=== PATIENT | female | born 1975 | race African-American/Black ===

== ENCOUNTER 2023-05-04 08:57 | Outpatient (AMB) | payer OTHER, SELFPAY ==
[2023-05-04 09:01] VITALS: BP 136/84; PULSE 84; RESP 13; TEMP 36.6; O2SAT 99; BMI 38.3
--- NOTE | 2023-05-04 09:01 | A.OFFPC_ITS ---
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 Accompanied by: Daughter Allergies Seasonal Allergies Allergy (Intermediate, Verified 05/04/23 10:07) Runny Nose Medication List - Last Reconciled 05/04/23 by Rani Rosario CNP amlodipine 10 mg PO DAILY lisinopril 20 mg PO DAILY metoprolol succinate ER 25 mg PO DAILY Tobacco use date assessed: 05/04/23 Dental Screening Dental Screen Date: 05/04/23 Did you have a dental visit in the last 12 months?: Yes Did you have a dental problem in the last 6 months where you did not have access to dental care?: No Was dental information given to patient?: Patient has dentist HPI HPI Comments History of Present Illness Details 48-year-old female, accompanied by her machelle bowman, presents to establish care. She notes that she relocated from [place] to [facility] 2 years ago. She has never established with a PCP. She has been accessing urgent care clinic for medical care. Her last routine blood work was in 2020. She has past medical history significant for hypertension and cerebral aneurysm with clamping in 2007. She reports history of palpitations that was worked-up without significant findings. She is on amlodipine, lisinopril, and metoprolol. She admits to taking her medications daily as prescribed. She notes that she has been monitoring her blood pressure at home and average in the 120s-140s over 80s/90s. She reports pressure in her right ear, postal nasal drip, and nonproductive cough for the past 2 weeks. She has been using Flonase. She has not been taking any medications for her symptoms. She denies headache, fever, chills, body aches, fatigue, weakness. [facility] Medical History (Updated 05/04/23 @ 10:38 by Rani Rosario CNP) Back disorder High blood pressure Sinusitis History of nephrolithotomy with removal of calculi Brain aneurysm Surgical History (Updated 05/04/23 @ 09:32 by Shanell Vasquez MA) S/P clamping of cerebral aneurysm Family History (Updated 05/04/23 @ 09:37 by Shanell Vasquez MA) Mother High blood pressure Diabetes Family/Other High blood pressure Social History Housing: House Patient Tobacco Use Status: Never used Tobacco e-Cigarette/Vaping Use: Never Used service: No Current occupational status: unemployed Cognitive needs: No Hearing needs: No Vision needs: Yes Questionnaire PHQ-9 Over the last 2 weeks, how often have you been bothered by any of the following problems? 1. Little interest or pleasure in doing things: not at all 2. Feeling down, depressed, or hopeless: not at all 3. Trouble falling or staying asleep, or sleeping too much: several days 4. Feeling tired or having little energy: not at all 5. Poor appetite or overeating: several days 6. Feeling bad about yourself - or that you are a failure or have let yourself or your family down: not at all 7. Trouble concentrating on things, such as reading the newspaper or watching television: not at all 8. Moving or speaking so slowly that other people could have noticed. Or the opposite - being so fidgety or restless that you have been moving around a lot more than usual: not at all 9. Thoughts that you would be better off or of hurting yourself in some way: not at all Total score: 2 Depression Screening Interpretation: Negative Depression Screening Done: Yes Source: Developed by Drs. José Luis Flowers, Karo Najera, Mohsen Herman and colleagues, with an educational minda from [employer]. Thrive Questionnaire Date Thrive assessed: 05/04/23 I am a: Patient What is your living situation today?: I have a steady place to live Within the past 12 months, did the food you bought not last and you didn't have the money to get more?: Never true Within the past 12 months, did you worry whether your food would run out before you got money to buy more?: Never true Do you have trouble paying for medicines?: No Do you have trouble getting transportation to medical appointments?: No Do you have trouble paying your heating and electricity bill?: No Do you have trouble taking care of your child, family member or friend?: No Do you have trouble with day-to-day activities such as bathing, preparing meals, shopping, managing finances, etc.?: No Are you currently unemployed and looking for a job?: No Are you interested in more education?: Yes Please select the resources that you would like help with: Education Currently or been in a relationship where the following occur: no concerns reported AUDIT C Alcohol Use Questionnaire (AUDIT-C) 1. How often do you have a drink containing alcohol?: Never 3. How often do you have six or more drinks on one occasion?: Never Total Score: 0 SAIGE-7 AMB Questionnaire SAIGE-7 Date SAIGE - 7 assessed: 05/04/23 Feeling nervous, anxious, or on edge: 0 = Not at all Not being able to stop or control worryin = Not at all Worrying too much about different things: 0 = Not at all Trouble relaxin = Not at all Being so restless that it is hard to sit still: 0 = Not at all Becoming easily annoyed or irritable: 0 = Not at all Feeling afraid as if something awful might happen: 0 = Not at all Total SAIGE-7 score (0-4 normal; 5-9 mild; 10-14 moderate; 15-21 severe): 0 Source: Developed by Drs. José Luis Flowers, Karo Najera, Mohsen Herman and colleagues, with an educational minda from [employer]. Review of Systems Const Details: Const Denies chills, Denies fatigue, Denies fever(s), Denies headache(s) and Denies weakness ENT Reports as per HPI Card Denies chest pain, Denies lightheadedness, Denies dyspnea and Denies other (Palpitations) Resp Reports cough, Denies dyspnea, Denies wheezing and Denies other ( shortness of breath) GI Denies abdominal pain, Denies melena, Denies hematochezia, Denies change in bowel habits, Denies dyspepsia and Denies nausea Denies hematuria and Denies dysuria Musc Denies abnormal gait, Denies myalgias, Denies arthralgias, Denies numbness and Denies tingling Skin/Breast Denies rash, Denies unusual bruising and Denies wounds Neuro Denies abnormal gait, Denies dizziness, Denies headache(s), Denies memory loss, Denies numbness, Denies Sensory deficit (Neuro), Denies tingling and Denies weakness Psych Denies anxiety, Denies depression, Denies memory loss Endo Denies cold intolerance, Denies fatigue, Denies heat intolerance, Denies polydipsia and Denies polyuria Aller/Immun Denies wheezing Physical exam (Primary Care) Vital Signs: Last Vital Signs Temp 98 F 05/04/23 09:01 Pulse 84 05/04/23 10:19 Resp 13 05/04/23 09:01 BP 144/90 H 05/04/23 10:19 Pulse Ox 99 05/04/23 09:01 Oxygen Delivery Method Room Air 05/04/23 09:01 BMI result Body Mass Index 38.3 Tobacco/Smoking Status: Tobacco use Status Tobacco use date assessed 05/04/23 05/04/23 09:14 Patient Tobacco Use Status Never used Tobacco 05/04/23 09:14 e-Cigarette/Vaping Use Never Used 05/04/23 09:14 PHQ-9: PHQ-9 Score PHQ-9: Total score 2 05/04/23 10:14 Depression Screening Interpretation: Negative Thrive Assessment: Date of Thrive Assessment Date Thrive assessed 05/04/23 05/04/23 09:40 Currently or been in a relationship where the following occur: no concerns reported Const Other: General: no acute distress and well developed Nutritional Appearance: well nourished Orientation/consciousness: patient oriented x3 HENMT Head is normocephalic Bilateral ear canal and TM are normal Nasal turbinates with mild erythema Oropharynx is pink and moist Sinuses are nontender with palpation No auricular or cervical lymphadenopathy Eyes General: appearance normal, both eyes and all related structures Pupils: Equal, round and reactive pupils present EOM: EOMs intact bilaterally Resp Effort & Inspection: normal respiratory effort Auscultation: clear to auscultation bilaterally Cardio Rate: regular rate Rhythm: regular rhythm Heart sounds: S1 normal heart sound present, S2 normal heart sound present, no gallops, no murmurs and no rubs GI Palpation (GI): No Abdominal aortic bruit present, Soft to palpation, nontender, No hepatosplenomegaly present and No Rebound tenderness present Auscultation: normal bowel sounds General: Yes no CVA tenderness Back/Spine/Pelvis Back: no CVA tenderness Cervical Spine: cervical ROM normal and No Cervical spine tenderness Thoracic/Lumbar Spine: thoraco-lumbar ROM normal, No pain with thoraco-lumbar ROM, No thoracic spinal tenderness and No lumbar spinal tenderness Extrem General: Yes normal to inspection, No edema and No calf tenderness Skin General: warm and dry. Normal skin color. Normal skin turgor Lesions: no lesions Rashes: no rashes Trauma: no lacerations or abrasions Wounds: no wounds Nails: normal Neuro General: patient oriented x3, gait normal and no focal neuro deficit Cranial nerves: Yes Equal, round and reactive pupils present Cognition (Neuro): normal cognition Gait exam (Neuro): Normal gait present Sensory Exam: No Sensory deficit (Neuro) Psych Appearance: grossly normal Affect: normal affect Attitude: cooperative Thought process: Normal thought process present Assessment and Plan Assessment & Plan (1) High blood pressure: Code(s): I10 - Essential (primary) hypertension Qualifiers: Hypertension type: primary hypertension Qualified Code(s): I10 - Essential (primary) hypertension Plan: Resting blood pressure is 144/90, above goal of less than 140/90 Metoprolol ER increased to 25 mg daily. Take as prescribed Continue to take amlodipine and lisinopril as prescribed Low-sodium diet encouraged Continue to monitor blood pressure daily Follow-up in 2 weeks or return sooner with symptoms or concerns Verbalized understanding and agreed with treatment plan. (2) Rhinitis: Code(s): J31.0 - Chronic rhinitis Qualifiers: Rhinitis type: allergic Allergic rhinitis trigger: unspecified Allergic rhinitis seasonality: unspecified Qualified Code(s): J30.9 - Allergic rhinitis, unspecified Plan: Reports pressure in her right ear, postal nasal drip, and nonproductive cough for the past 2 weeks. Nasal turbinates with mild erythema. Sinuses are nontender to palpation Zyrtec and benzonatate ordered. Take as prescribed Adequate rest and hydration encouraged May take Tylenol ibuprofen for pain, fever, or discomfort Return with worsening or new symptoms Verbalized understanding and agreed with treatment plan. (3) Laboratory tests ordered as part of a complete physical exam (CPE): Code(s): Z00.00 - Encounter for general adult medical examination without abnormal findings Plan: Fasting labs ordered as part of a complete physical exam. Advised to fast for at least 10 hours before getting labs drawn. May drink water Verbalized understanding and agreed with treatment plan. Orders: Orders Comprehensive Okay. Panel Fast Today Z00.00 - Encounter for general adult medical examination without abnormal findings TSH reflex Free T4 Today Z00.00 - Encounter for general adult medical examination without abnormal findings Complete Blood Count Auto Diff Today Z00.00 - Encounter for general adult medical examination without abnormal findings Lipid Panel Today Z00.00 - Encounter for general adult medical examination without abnormal findings UA CC w/rflx Micro + Cult Today Z00.00 - Encounter for general adult medical e xamination without abnormal findings Medications: New cetirizine (Zyrtec) 10 mg PO DAILY 30 tabs 1RF 30 days metoprolol succinate ER 50 mg PO DAILY 30 days 30 tabs 3RF benzonatate 200 mg PO BID PRN 20 caps 0RF cough Coding Level of Care Code New Pt Level 4 (35764) Diagnoses Primary hypertension I10 Hypertension type: primary hypertension Allergic rhinitis, unspecified seasonality, unspecified trigger J30.9 Rhinitis type: allergic Allergic rhinitis trigger: unspecified Allergic rhinitis seasonality: unspecified Laboratory tests ordered as part of a complete physical exam (CPE) Z00.00
[2023-05-04 10:19] VITALS: BP 144/90; PULSE 84
== END 2023-05-04 10:33 | disposition home or self-care (01) ==
PROVIDERS: PCP Nurse Practitioner Family; Visit Provider Nurse Practitioner Family
DX: I10 Essential (primary) hypertension (principal); J30.9 Allergic rhinitis, unspecified
CPT/HCPCS: 99204

== ENCOUNTER 2023-05-04 10:40 | Outpatient (REF) | payer OTHER, SELFPAY ==
[2023-05-04 14:55] LABS: Appearance Urine Turbid; Color Urine Yellow; Glucose Urine UA Negative (Negative); Leukocyte Esterase Urine Negative (Negative); Nitrite Urine Negative (Negative); PH 7.5 (5.0-9.0); Specific Gravity - Urine 1.015 (1.005-1.025); UMIC TRIGGER UACC YES; Urine Blood Negative (Negative); Urine Ketones Negative (Negative); Urine Protein 100 (2+) mg/dL (Neg-Trace)
[2023-05-04 14:56] LABS: MANUAL DIFF FLAG NO
[2023-05-04 14:57] LABS: Bacteria Urine 1+ (None Seen); Hyaline Casts Urine 0-2 /LPF (0-2); RBC Urine 0-2 /HPF (0-2); UACC Culture Trigger YES
[2023-05-04 15:05] LABS: Basophils Absolute Auto 0.1 X10*3/uL (0.0-0.2); Basophils Percent Auto 1.1 % (0-2); Eosinophils Absolute Auto 0.2 X10*3/uL (0.0-0.4); Eosinophils Percent Auto 2.7 % (0-4); Hemoglobin 12.4 g/dl (12.0-16.0); Imm Gran Abs Auto 0.02 X10*3/uL (0.00-0.03); Imm Gran Pct Auto 0.3 % (0.0-0.4); Lymphocytes Absolute Auto 2.4 X10*3/uL (1.2-4.9); Lymphocytes Percent Auto 31.6 % (20-40); Mean Corpuscular HGB Conc 31.8 g/dl (31.0-35.0); Mean Corpuscular Hemoglobin 28.2 pg (27.0-33.0); Mean Corpuscular Volume 88.8 fL (80.0-98.0); Mean Platelet Volume 10.1 fL (9.4-12.3); Monocytes Absolute Auto 0.8 X10*3/uL (0.1-1.2); Monocytes Percent Auto 10.3 % (2-11); Neutrophils Absolute Auto 4.1 x10*3/uL (2.0-8.3); Platelet Count 298 X10*3/uL (160-400); Red Blood Count 4.39 X10*6/uL (4.20-5.50); Red Cell Distribution Width 14.1 % (11.0-16.0); White Blood Count 7.5 X10*3/uL (4.8-10.8)
[2023-05-04 15:27] LABS: Alanine Aminotransferase 23 U/L (0-31); Albumin Level 4.3 g/dL (3.5-5.0); Alkaline Phosphatase 73 U/L (39-117); Anion Gap 16 (12-20); Aspartate Amino Transferase 23 U/L (5-31); Bilirubin Total 0.3 mg/dL (0.0-1.0); Blood Urea Nitrogen 13 mg/dL (9-16); Calcium 9.4 mg/dL (8.4-10.2); Carbon Dioxide 24 mmol/L (22-29); Chloride 105 mmol/L (96-108); Cholesterol 159 mg/dL (<200); Estimated Glomerular Filt Rate > 60; Glucose Fasting 127 mg/dL (60-99); HDL Cholesterol 50 mg/dL (>40); LDL Cholesterol Calculated 93 mg/dL (<100); Potassium 3.7 mmol/L (3.3-5.1); Sodium 141 mmol/L (135-145); Total Protein 7.9 g/dL (6.5-8.0); Triglycerides 83 mg/dL (<150)
[2023-05-04 15:41] LABS: TSH reflex Free T4 1.22 uIU/mL (0.32-4.0)
== END 2023-05-04 10:41 | disposition home or self-care (01) ==
LOC: HO.WFDLDS 10:40
PROVIDERS: Visit Provider Nurse Practitioner Family
DX: Z00.00 Encounter for general adult medical examination without abnormal findings (principal)
CPT/HCPCS: 36415; 80053; 80061; 81001; 84443; 85025; 87086

== ENCOUNTER 2023-05-19 16:01 | Outpatient (AMB) | payer OTHER, SELFPAY ==
--- NOTE | 2023-05-19 16:09 | A.OFFPC_ITS ---
Vital Signs 05/19/23 16:10 Height 5 ft 3 in Weight 214 lb BMI 37.9 BP 130/88 Blood Pressure Location Lt brachial Position Sitting Respiration 13 Pulse 84 Pulse Source Pulse Oximeter Temp 98.7 F Temp Source Oral Pulse Oximetry (%) 98 Oxygen Delivery Method Room Air Intake Visit Reasons: f/u HTN Intake Note: Patient is here for a blood pressure follow up. Patient reports she notices at the doctors office her blood pressure is elevated. Patient takes her blood pressure at home and notices her blood pressure is often higher when not taking her medication. 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 She established care 2 weeks ago. Her blood pressure was elevated, 144/90. Metoprolol ER was increased to 50 mg daily. She was advised to take metoprolol, lisinopril, and amlodipine as prescribed. She admits to taking her medications as prescribed. She denies acute symptoms at this time. [facility] Medical History (Updated 05/19/23 @ 16:35 by Rani Rosario CNP) Back disorder High blood pressure Sinusitis History of nephrolithotomy with removal of calculi Brain aneurysm Surgical History (Updated 05/04/23 @ 09:32 by Shanell Vasquez MA) S/P clamping of cerebral aneurysm Family History (Updated 05/04/23 @ 09:37 by Shanell Vasquez MA) Mother High blood pressure Diabetes Family/Other High blood pressure Social History Housing: House Patient Tobacco Use Status: Never used Tobacco e-Cigarette/Vaping Use: Never Used service: No Current occupational status: unemployed Cognitive needs: No Hearing needs: No Vision needs: Yes Questionnaire Thrive Questionnaire Date Thrive assessed: 05/04/23 SAIGE-7 AMB Questionnaire SAIGE-7 Date SAIGE - 7 assessed: 05/04/23 Source: Developed by Drs. José Luis Flowers, Karo Najera, Mohsen Herman and colleagues, with an educational minda from [employer]. Review of Systems Const Details: Const Denies chills, Denies fatigue, Denies fever(s), Denies headache(s) and Denies weakness ENT Denies dizziness and Denies headache(s) Card Denies chest pain, Denies lightheadedness, Denies dyspnea and Denies other (Palpitations) Resp Denies cough, Denies dyspnea, Denies wheezing and Denies other ( shortness of breath) GI Denies abdominal pain, Denies melena, Denies hematochezia, Denies change in bowel habits, Denies dyspepsia and Denies nausea Denies hematuria and Denies dysuria Musc Denies abnormal gait, Denies myalgias, Denies arthralgias, Denies numbness and Denies tingling Skin/Breast Denies rash, Denies unusual bruising and Denies wounds Neuro Denies abnormal gait, Denies dizziness, Denies headache(s), Denies memory loss, Denies numbness, Denies Sensory deficit (Neuro), Denies tingling and Denies weakness Psych Denies anxiety, Denies depression, Denies memory loss Endo Denies cold intolerance, Denies fatigue, Denies heat intolerance, Denies polydipsia and Denies polyuria Aller/Immun Denies wheezing Physical exam (Primary Care) Vital Signs: Last Vital Signs Temp 98.7 F 05/19/23 16:10 Pulse 84 05/19/23 16:10 Resp 13 05/19/23 16:10 BP 130/88 05/19/23 16:10 Pulse Ox 98 05/19/23 16:10 Oxygen Delivery Method Room Air 05/19/23 16:10 BMI result Body Mass Index 37.9 Tobacco/Smoking Status: Tobacco use Status Tobacco use date assessed 05/04/23 05/19/23 16:18 Patient Tobacco Use Status Never used Tobacco 05/19/23 16:18 e-Cigarette/Vaping Use Never Used 05/19/23 16:18 Thrive Assessment: Date of Thrive Assessment Date Thrive assessed 05/04/23 05/19/23 16:18 Const Other: General: no acute distress and well developed Nutritional Appearance: well nourished Orientation/consciousness: patient oriented x3 HENMT Head: Yes normocephalic and Yes atraumatic Eyes General: appearance normal, both eyes and all related structures Pupils: Equal, round and reactive pupils present EOM: EOMs intact bilaterally Resp Effort & Inspection: normal respiratory effort Auscultation: clear to auscultation bilaterally Cardio Rate: regular rate Rhythm: regular rhythm Heart sounds: S1 normal heart sound present, S2 normal heart sound present, no gallops, no murmurs and no rubs GI Palpation (GI): No Abdominal aortic bruit present, Soft to palpation, nontender, No hepatosplenomegaly present and No Rebound tenderness present Auscultation: normal bowel sounds General: Yes no CVA tenderness Back/Spine/Pelvis Back: no CVA tenderness Cervical Spine: cervical ROM normal and No Cervical spine tenderness Thoracic/Lumbar Spine: thoraco-lumbar ROM normal, No pain with thoraco-lumbar ROM, No thoracic spinal tenderness and No lumbar spinal tenderness Extrem General: Yes normal to inspection, No edema and No calf tenderness Skin General: warm and dry. Normal skin color. Normal skin turgor Neuro General: patient oriented x3, gait normal and no focal neuro deficit Cranial nerves: Yes Equal, round and reactive pupils present Cognition (Neuro): normal cognition Gait exam (Neuro): Normal gait present Sensory Exam: No Sensory deficit (Neuro) Psych Appearance: grossly normal Affect: normal affect Attitude: cooperative Thought process: Normal thought process present Assessment and Plan Assessment & Plan (1) High blood pressure: Code(s): I10 - Essential (primary) hypertension Qualifiers: Hypertension type: primary hypertension Qualified Code(s): I10 - E ssential (primary) hypertension Plan: Blood pressure is 130/88, within goal of less than 140/90 Continue with current treatment regimen Low-sodium diet encouraged Follow-up in 1 month for an extended physical exam Return sooner with symptoms or concerns Verbalized understanding and agreed with treatment plan. (2) Elevated fasting glucose: Code(s): R73.01 - Impaired fasting glucose Plan: Recent lab results reviewed with the patient. Unremarkable urinalysis and blood work except for elevated fasting glucose of 127 Will repeat fasting glucose. Advised to fast for 10-12 hours and get blood work done before next visit Follow-up in 1 month Verbalized understanding and agreed with treatment plan. Coding Level of Care Code Est Pt Level 3 (42956) Diagnoses Primary hypertension I10 Hypertension type: primary hypertension Elevated fasting glucose R73.01
[2023-05-19 16:10] VITALS: BP 130/88; PULSE 84; RESP 13; TEMP 37.1; O2SAT 98; BMI 37.9
== END 2023-05-19 16:45 | disposition home or self-care (01) ==
PROVIDERS: PCP Nurse Practitioner Family; Visit Provider Nurse Practitioner Family
DX: I10 Essential (primary) hypertension (principal); R73.01 Impaired fasting glucose
CPT/HCPCS: 99213

== ENCOUNTER 2023-09-06 08:06 | Outpatient (REF) | payer OTHER, SELFPAY ==
[2023-09-06 14:16] LABS: MANUAL DIFF FLAG NO
[2023-09-06 14:22] LABS: Basophils Absolute Auto 0.1 X10*3/uL (0.0-0.2); Basophils Percent Auto 1.4 % (0-2); Eosinophils Absolute Auto 0.3 X10*3/uL (0.0-0.4); Eosinophils Percent Auto 4.4 % (0-4); Hematocrit 39.3 % (37.0-47.0); Hemoglobin 12.5 g/dl (12.0-16.0); Imm Gran Abs Auto 0.01 X10*3/uL (0.00-0.03); Imm Gran Pct Auto 0.2 % (0.0-0.4); Lymphocytes Absolute Auto 2.8 X10*3/uL (1.2-4.9); Lymphocytes Percent Auto 42.2 % (20-40); Mean Corpuscular HGB Conc 31.8 g/dl (31.0-35.0); Mean Corpuscular Hemoglobin 28.6 pg (27.0-33.0); Mean Corpuscular Volume 89.9 fL (80.0-98.0); Mean Platelet Volume 10.4 fL (9.4-12.3); Monocytes Absolute Auto 0.8 X10*3/uL (0.1-1.2); Monocytes Percent Auto 11.5 % (2-11); Neutrophils Absolute Auto 2.7 x10*3/uL (2.0-8.3); Neutrophils Percent Auto 40.3 % (45-73); Platelet Count 291 X10*3/uL (160-400); Red Blood Count 4.37 X10*6/uL (4.20-5.50); Red Cell Distribution Width 13.2 % (11.0-16.0); White Blood Count 6.6 X10*3/uL (4.8-10.8)
[2023-09-06 15:03] LABS: Alanine Aminotransferase 20 U/L (0-31); Albumin Level 4.3 g/dL (3.5-5.0); Alkaline Phosphatase 68 U/L (39-117); Anion Gap 12 (12-20); Aspartate Amino Transferase 20 U/L (5-31); Bilirubin Total 0.3 mg/dL (0.0-1.0); Blood Urea Nitrogen 16 mg/dL (9-16); Calcium 9.6 mg/dL (8.4-10.2); Carbon Dioxide 28 mmol/L (22-29); Chloride 104 mmol/L (96-108); Cholesterol 174 mg/dL (<200); Estimated Glomerular Filt Rate > 60; Glucose Random 115 mg/dL (60-115); HDL Cholesterol 55 mg/dL (>40); LDL Cholesterol Calculated 91 mg/dL (<100); Potassium 3.3 mmol/L (3.3-5.1); Sodium 141 mmol/L (135-145); Total Protein 7.7 g/dL (6.5-8.0); Triglycerides 140 mg/dL (<150)
[2023-09-06 15:26] LABS: TSH reflex Free T4 2.08 uIU/mL (0.32-4.0)
[2023-09-07 08:41] LABS: HIV AB/AG Nonreactive (Nonreactive); HIV Num 1 0.06 S/CO (0.00-0.99); ~HepC Num1 0.24 S/CO (0.00-0.79); ~Hepatitis C Antibody Nonreactive (Nonreactive)
== END 2023-09-06 08:07 | disposition home or self-care (01) ==
LOC: HO.CHCLDS 08:06
PROVIDERS: Visit Provider Family Medicine
DX: R00.2 Palpitations (principal); E66.01 Morbid (severe) obesity due to excess calories; Z68.36 Body mass index [BMI] 36.0-36.9, adult
CPT/HCPCS: 36415; 80053; 80061; 84443; 85025; 86803; 87389

== ENCOUNTER 2023-09-09 18:49 | Outpatient (REF) | payer OTHER, SELFPAY ==
[2023-09-15 11:39] LABS: HPV mRNA E6/E7 rflx Not Detected (Not Detected)
== END 2023-09-09 18:50 | disposition home or self-care (01) ==
LOC: HO.CHCLNP 18:49
PROVIDERS: Visit Provider Family Medicine
DX: Z12.4 Encounter for screening for malignant neoplasm of cervix (principal); Z11.51 Encounter for screening for human papillomavirus (HPV)
CPT/HCPCS: 87624; 88142

== ENCOUNTER → 2023-09-13 14:30 | Outpatient (BNV) | payer OTHER, SELFPAY | PROVIDERS: PCP Family Medicine; Visit Provider Radiology Diagnostic Radiology | DX: Z12.31 Encounter for screening mammogram for malignant neoplasm of breast (principal) | CPT/HCPCS: 77063; 77067 ==

== ENCOUNTER 2023-09-13 14:32 | Outpatient (REF) | payer OTHER, SELFPAY ==
--- NOTE | ~2023-09-13 | MM_ITS ---
EXAMINATION: MM SCREENING DIGITAL BREAST TOMOSYNTHESIS, BILATERAL CLINICAL INFORMATION: Screening. Asymptomatic. COMPARISON: Mammography: None. Baseline exam. TECHNIQUE: Digital breast tomosynthesis is performed in both the craniocaudal and mediolateral oblique views along with computer-aided detection (CAD). Synthesized 2D images are generated from the tomosynthesis. FINDINGS: There are scattered areas of fibroglandular density (ACR BI-RADS breast composition Category b). There are no suspicious masses, suspicious grouped calcifications, or areas of architectural distortion in either breast. The parenchymal pattern is stable from prior exams. MM/MM tomosynthesis screening BI IMPRESSION: No mammographic evidence of malignancy. ASSESSMENT: BI-RADS BI-RADS 1 - Negative RECOMMENDATION: Routine annual mammography screening. 1 year F/U This examination should not preclude the clinical evaluation of a suspicious palpable abnormality. This patient's information was entered into a reminder system with a target due date for their next mammogram.
--- NOTE | 2023-09-13 15:18 | HM_ITS ---
Conclusion: 1. Patient was monitored for total period of 1 day 2. Baseline was normal sinus rhythm with average heart of 82 beats per minute 3. No significant arrhythmias or pauses noted 4. Patient marked 2 events in the diary but there was no associated marking with the Holter monitor as it was outside the time. . MTDD
== END 2023-09-13 14:33 | disposition home or self-care (01) ==
LOC: HO.MAMMO 14:32
PROVIDERS: PCP Family Medicine; Visit Provider Family Medicine
DX: Z12.31 Encounter for screening mammogram for malignant neoplasm of breast (principal); R00.2 Palpitations
CPT/HCPCS: 77063; 77067; 93225

== ENCOUNTER → 2023-09-13 15:18 | Outpatient (BNV) | payer OTHER, SELFPAY | PROVIDERS: PCP Family Medicine; Visit Provider Internal Medicine Cardiovascular Disease | DX: R00.2 Palpitations (principal) | CPT/HCPCS: 93227 ==

== ENCOUNTER 2023-11-15 15:09 | Outpatient (AMB) | payer OTHER, SELFPAY ==
[2023-11-15 15:30] VITALS: BMI 37.6
--- NOTE | 2023-11-15 15:30 | A.OFFVIS_ITS ---
Vital Signs 11/15/23 15:30 Height 5 ft 3 in Weight 212 lb BMI 37.6 Intake Visit Reasons: New Pt - left MF trigger finger Intake Note: Radha is a 48 year old right hand dominant female who presents today as a new patient for a evaluation of her left MF trigger finger. Patient reports that her middle finger started to lock in place about a year . She states that it causes her a lot of pain. Patient finds when she is using her trigger finger it locks making it difficult to straighten it out. About 2 months ago she was given a steroid injection at her PCP's office that helped her pain. User Experience Researcher Required: No Accompanied by: Self / Same As Patient Allergies Seasonal Allergies Allergy (Intermediate, Verified 11/15/23 15:32) Runny Nose HPI HPI New Pt - left MF trigger finger: Details: 48-year-old right hand dominant female who presents in the office today, as a new patient, for an evaluation of left hand pain. Patient was referred to the office by her PCP with a complaint of a left middle finger trigger finger. While in the office today the patient reports her middle finger started locking about a year ago, in 2022. She states this causes her a lot of pain. She claims with the use of the left middle finger locks making it difficult to straighten out. She confirms a steroid trigger point injection about 2 months ago, 09/2023, at her PCP office. She states this did help with pain. [facility] Medical History (Updated 11/15/23 @ 16:00 by Loretta Carias) Back disorder High blood pressure Sinusitis History of nephrolithotomy with removal of calculi Brain aneurysm Surgical History (Updated 05/04/23 @ 09:32 by DEVENDRA Persaud) S/P clamping of cerebral aneurysm Family History (Updated 05/04/23 @ 09:37 by DEVENDRA Persaud) Mother High blood pressure Diabetes Family/Other High blood pressure Social History Housing: House Patient Tobacco Use Status: Never used Tobacco e-Cigarette/Vaping Use: Never Used service: No Current occupational status: unemployed Cognitive needs: No Hearing needs: No Vision needs: Yes Review of Systems Const All systems reviewed & are unremarkable except as noted in HPI and below Physical Exam Vital Signs: BMI result Body Mass Index 37.6 Const General: cooperative and no acute distress Orientation/consciousness: patient oriented x3 Resp Effort & Inspection: normal respiratory effort and able to speak in complete sentences Cardio Peripheral pulses: Peripheral pulses 2+ throughout Skin General skin exam: no rashes or lesions noted Neuro General: patient oriented x3 Extrem Other: Left hand: Normal to inspection. No ecchymosis, erythema, or edema. Able to perform full finger flexion, extension, abduction, adduction, finger cross, okay sign, and thumbs up without deficit. Able to make a closed fist. Active locking of the left middle finger. Sensation intact. Capillary refill is brisk. Radial pulse intact. Assessment & Plan Assessment & Plan (1) Trigger finger, left middle finger: Code(s): M65.332 - Trigger finger, left middle finger Category: Medical Plan Ms. Rios is a 48-year-old right hand dominant female who presents in the office today, as a new patient, for an evaluation of left hand pain. Patient was referred to the office by her PCP with a complaint of a left middle finger trig rosetta finger. While in the office today the patient reports her middle finger started locking about a year ago, in 2022. She states this causes her a lot of pain. She claims with the use of the left middle finger locks making it difficult to straighten out. She confirms a steroid trigger point injection about 2 months ago, 09/2023, at her PCP office. She states this did help with pain. We discussed conservative versus surgical intervention. She has tried oral steroids with relief of pain, but no relief of locking or catching. She wants to consider surgical intervention but wants to further discuss this with her family. She would also like to meet with Dr. López with her family possibly present to further discuss the surgical procedure and to meet the surgeon. Follow up will be after the patient has discussed with her family and pending the decision on surgical intervention, or sooner if needed. Patient Instructions: Scribed by Loretta Carias medical massage therapist, for Kiki Sarkar PA-C on 11/15/2023 at 3:10 pm, EST. Coding Level of Care Code New Pt Level 4 (24547) Diagnoses Trigger finger, left middle finger M65.332
== END 2023-11-15 16:05 | disposition home or self-care (01) ==
PROVIDERS: PCP Family Medicine; Visit Provider Physician Assistant
DX: M65.332 Trigger finger, left middle finger (principal)
CPT/HCPCS: 99203

== ENCOUNTER → 2023-11-15 15:09 | Outpatient (BNVA) | payer OTHER, SELFPAY | PROVIDERS: PCP Family Medicine; Visit Provider Physician Assistant | DX: M65.332 Trigger finger, left middle finger (principal) | CPT/HCPCS: 99202 ==

== ENCOUNTER 2024-01-03 14:58 | Outpatient (AMB) | payer OTHER, SELFPAY ==
[2024-01-03 15:00] VITALS: BP 120/82; PULSE 89; BMI 38.0
--- NOTE | 2024-01-03 15:00 | A.OFFVIS_ITS ---
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 She states she has had palpitations more than 10 years. She also has hypertension and on multiple blood pressure medications. Around 2007, she apparently had cerebral aneurysm intervention in [place] and did well in that regard. Around 2009 or so the palpitations started and she has had them off and on. More recently, does not really feel much. She underwent 24 hour monitor and that was unremarkable. She states that she feels palpitations mostly when she does not take the blood pressure medications but not otherwise. No other clear-cut complaints like angina or shortness of breath. No known coronary disease or myocardial infarction or cardiomyopathy. [facility] Medical History (Updated 01/03/24 @ 15:14 by Eric Guerrero MD) Back disorder High blood pressure Sinusitis History of nephrolithotomy with removal of calculi Brain aneurysm Surgical History S/P clamping of cerebral aneurysm Family History Mother High blood pressure Diabetes Family/Other High blood pressure Social History Housing: House Patient Tobacco Use Status: Never used Tobacco e-Cigarette/Vaping Use: Never Used service: No Current occupational status: unemployed Cognitive needs: No Hearing needs: No Vision needs: Yes Review of Systems Const Denies chills, Denies fatigue, Denies fever(s), Denies frequent falls, Denies weakness, Denies weight gain and Denies weight loss ENT Denies dizziness Card Denies chest pain, Denies leg edema, Denies lightheadedness, Denies palpitations, Denies dyspnea, Denies dyspnea on exertion and Denies orthopnea Resp Denies cough, Denies dyspnea and Denies dyspnea on exertion GI Denies bloating and Denies change in bowel habits Musc Denies muscle weakness, Denies numbness and Denies tingling Neuro Denies dizziness, Denies frequent falls, Denies numbness, Denies tingling and Denies weakness Endo Denies fatigue and Denies palpitations Physical Exam Vital Signs: Last Vital Signs Pulse 89 01/03/24 15:00 BP 120/82 01/03/24 15:00 BMI result Body Mass Index 38.0 Const General: comfortable and no acute distress Orientation/consciousness: patient oriented x3 HEENT Other: Unremarkable Head: Yes normal to inspection Neck Neck: Yes normal visual inspection Chest Chest palpation & inspection: normal inspection of the chest Resp Auscultation: clear to auscultation bilaterally Cardio Palpation: normal PMI Heart sounds: S1 normal heart sound present, S2 normal heart sound present, no gallops, no murmurs and no rubs GI Palpation (GI): Soft to palpation Back/Spine/Pelvis Other: unremarkable Skin General skin exam: no rashes or lesions noted Neuro General: patient oriented x3 Extrem General: Yes normal to inspection Psych Mental Status: mental status grossly normal Office Procedures EKG Details: EKG with sinus rhythm at 89/Min; no significant ST-T changes and otherwise unremarkable. [place]. [id number], Complete Assessment & Plan Assessment & Plan (1) Heart palpitations: Code(s): R00.2 - Palpitations Category: Medical Plan In the recent Holter, underlying rhythm is sinus with an average rate of 82/Min. No significant arrhythmias. Overall unremarkable. We discussed about doing a longer monitor for 14 days or month but she states that her symptoms are very infrequent and she would like to hold off for now. Any case, there is recurrent palpitations, she will contact us and we can arrange these at that time. Otherwise, do recommend an echocardiogram for baseline cardiac function assessment. She is agreeable for that. Orders: Orders CA echo transthoracic complete Today R00.2 - Palpitations Coding Level of Care Code New Pt Level 3 (98204) Diagnoses Heart palpitations R00.2 CPT Codes EKG - CPT: 03424-[id number], Complete ([id number])
== END 2024-01-03 15:23 | disposition home or self-care (01) ==
PROVIDERS: PCP Family Medicine; Visit Provider Internal Medicine
DX: R00.2 Palpitations (principal)
CPT/HCPCS: 93010; 99203

== ENCOUNTER → 2024-01-03 14:58 | Outpatient (BNVA) | payer OTHER, SELFPAY | PROVIDERS: PCP Family Medicine; Visit Provider Internal Medicine | DX: R00.2 Palpitations (principal) | CPT/HCPCS: 93005; 99202 ==

== ENCOUNTER → 2024-01-18 14:46 | Outpatient (REF) | payer OTHER, SELFPAY ==
--- NOTE | 2024-01-18 14:49 | CA_ITS ---
Transthoracic Echocardiogram Patient (Last, First, Middle): Radha Rios, Gender: Female Date of : 1975 Age: 48 Procedure Date: 01/18/2024 Procedure Type: Transthoracic Echocardiogram Location: OP Height: 160.02 cm Weight: 96.16 kg BSA: 1.98 m2 Heart Rate: bpm BP: 121 / 82 mmHg End Touching Machine Operator: ISABEL Grijalva MD: Eric Guerrero MD Waiter/Waitress Club: Manuel Duarte MD Symptoms: R00.2 - Palpitations Study Quality: Adequate ECG Rhythm: Sinus Conclusions: - Essentially normal study Findings Left Ventricle Normal left ventricular size, thickness, and systolic function. The visually estimated ejection fraction is between 60-65%. Spectral Doppler is indicative of a normal filling pattern. Right Ventricle Normal right ventricular cavity size and systolic function. Atria The left atrium is likely dilated. There is no evidence of interatrial shunt. The right atrium is normal in size. Aortic Valve Normal aortic valve structure and function. There is no aortic valve stenosis. There is no aortic valve regurgitation. Mitral Valve Normal mitral valve structure and function. There is trace mitral valve regurgitation. There is no mitral valve stenosis. Pulmonic Valve The pulmonic valve is likely normal. There is trace pulmonic valve regurgitation. Tricuspid Valve Normal tricuspid valve structure. There is trace tricuspid valve regurgitation. The right ventricular systolic pressure is normal. The right ventricular systolic pressure is 30 mmHg. Normal right atrial pressure. There is no evidence of pulmonary hypertension. Great Vessels The pulmonary artery was not well visualized. There is no dilatation of the ascending aorta measuring 3.30 cm. Venous The inferior vena cava is normal in size and collapses greater than 50% with inspiration. Pericardium/Pleural There is no evidence of pericardial effusion. Prior Study Comparison No prior study available for comparison. Measurements 2D Linear Measurements IVSd: 1.44 0.6-0.9/0.6-1.0 cm LVIDd: 3.97 3.9-5.3/4.2-5.9 cm LVIDd Index: 2.01 2.4-3.2/2.2-3.1 cm/m2 LVIDs: 2.81 2.0-3.6 cm LVPWd: 1.13 0.7-1.1 cm LA Diam: 3.00 2.7-3.8/3.0-4.0 cm LAIDs Index: 1.52 1.5-2.3 cm/m2 LV Mass: 225.84 67-162/88-224 g LV Mass Index: 114.06 43-95/49-115 g/m2 LVOT Diam: 2.00 3.0+(-)1.3 cm 2D Systolic Function EF 4C: 62.40 >55% EF 2C: 65.30 >55% EF BiP: 63.00 >55% Mitral Valve MV Pk E: 0.72 MV PK A: 0.70 MV Decel Time: 228.00 E/A: 1.00 E'Lateral: 11.20 E'Medial: 5.87 E/E' Med: 12.30 E/E' Lat: 6.40 PHT: 67.00 MVA PHT: 3.28 Decel Faulk: 3.15 Aortic Valve AoV Pk Virgilio: 1.71 AoV Mn Virgilio: 1.18 AoV VTI: 0.36 AoV Pk Grad: 12.00 Aov Mn Grad: 6.00 LORNE Cont.VTI: 2.10 LVOT LVOT Pk Virgilio: 1.21 LVOT Mn Virgilio: 0.75 LVOT VTI: 0.24 LVOT Pk Grad: 6.00 LVOT Mn Grad: 3.00 LVOT Diam: 2.00 LVOT Area: 3.14 Diastolic Function MV Pk E: 0.72 MV Pk A: 0.70 E/A: 1.00 E'Medial: 5.87 E/E' Med: 12.30 E' Laterial: 11.20 E/E' Lat: 6.40 Right Ventricle TAPSE (mm): 24.80 TVS' Virgilio: 12.70 Tricuspid Valve TR Pk Virgilio: 2.61 TR Pk Grad: 27.00 RA Press: 3.00 RVSP: 30.00 Great Vessels Aorta Sinus of Valsalva: 3.77 2.0-3.[address] Ridge: 2.78 1.7-3.4 cm Ao Asc: 3.30 2.1-3.4 cm Updated in Other Vendor System with Status of Final Manuel Duarte MD electronically signed on 01/19/2024 9:15:08 AM with status of Final
== END ==
LOC: HO.CARD 14:46
PROVIDERS: PCP Family Medicine; Visit Provider Internal Medicine
DX: R00.2 Palpitations (principal)
CPT/HCPCS: 93306

== ENCOUNTER → 2024-01-18 14:49 | Outpatient (BNV) | payer OTHER, SELFPAY | PROVIDERS: PCP Family Medicine; Visit Provider Internal Medicine Cardiovascular Disease | DX: I34.0 Nonrheumatic mitral (valve) insufficiency (principal) | CPT/HCPCS: 93306 ==

== ENCOUNTER 2025-05-13 12:25 | Outpatient (REF) | payer OTHER, SELFPAY ==
--- NOTE | ~2025-05-13 | XR_ITS ---
EXAMINATION: XR CHEST CLINICAL INFORMATION: weakness COMPARISON: None available. TECHNIQUE: 2 views of the chest were obtained. FINDINGS: No significant abnormality is noted involving the heart, lungs, mediastinum, bony thorax or soft tissues. XR/XR chest 2V IMPRESSION: No acute disease. Electronically signed by: Demar Gray MD 05/13/2025 01:15 PM [facility]
--- NOTE | ~2025-05-13 | CT_ITS ---
EXAMINATION: CT HEAD WITHOUT CONTRAST CLINICAL INFORMATION: Degenerative changes COMPARISON: None available. TECHNIQUE: Contiguous axial imaging was performed from the skull base to vertex without intravenous administration of contrast. This CT examination was performed using dose optimization techniques as appropriate, variously including the following: *Automated exposure control *Adjustment of mA and/or kV according to patient size (this includes techniques or standardized protocols for targeted exams where dose is matched to indication/reason for exam; i.e. extremities or head) *Use of iterative reconstruction technique FINDINGS: There is no acute ischemic change. There is no intracranial hemorrhage. There is no mass-effect or midline shift. Basal cisterns and ventricles are within normal limits for age/cerebral volume. Right frontal craniotomy has been performed with clips present in the lower right frontal region likely related to clipping of MCA aneurysm. Orbits are symmetrical and unremarkable. Paranasal sinuses and mastoid air cells are pneumatized. There are no bony abnormalities. CT/CT head/brain wo IV con IMPRESSION: Right frontal craniotomy and MCA aneurysm clips. No acute intracranial abnormality. Electronically signed by: Demar Gray MD 05/13/2025 02:00 PM [facility]
--- OUTSIDE RECORDS SUMMARY | 2025-05-13 11:00 | XMS_ITS | Encounter Summary ---
Author Organization [employer] Address [address] [facility] [address] [place] [address] Care Team Providers Care Counselor Aide Name Role Phone Estefania Hurley MD Primary Care Provider [phone] Reason for Visit * Reason Comments Urinary Frequency Vaginal Itching Encounter Details Date Type Department Care Team ([facility] st Contact Info) Description 05/13/2025 11:00 AM EST Office Visit [facility] [address] [place] [address] Type 2 diabetes mellitus with hyperglycemia, without long-term current use of insulin (HCC) (Primary Dx); Blurry vision, bilateral; Subacute vaginitis; Hypertension, unspecified type Social History Tobacco Use Types Packs/Day Years Used Date Smoking Tobacco: Never Passive Smoke Exposure: Never Smokeless Tobacco: Never Alcohol Use Standard Drinks/Week Comments Never 0 (1 standard drink = 0.6 oz pur e alcohol) Housing Stability Answer Date Recorded What is your housing situation today? I have sherri page 07/27/[address] you li ve. Do you have problems with any of the following? None of the above 07/27/2023 Food Insecurity Answer Date Recorded Within the past 12 months, y ou worried that your food would run out before you got money to buy more: Never True 07/27/2023 Within the past 12 months,th e food you bought just didn't last and you didn't have enough money to get more: Never True Transportation Answer Date Recorded In the past 12 months, has l ack of transportation kept you from medical appts, meetings, work or from getting things needed for daily living? No 07/27/2023 Utilities Answer Date Recorded In the past 12 months, has t he electric, gas, oil or water company threatened to shut off services in your home? No 07/27/2023 Comments Unknown Sex and Gender Information Value Date Recorded Sex Assigned at Female 06/09/2023 3:27 PM EST Legal Sex Female 4:14 PM EDT Gender Identity Female 06/09/2023 3:37 PM EST Sexual Orientation Straight 06/09/2023 3: 37 PM EST documented as of this encounter Last Filed Vital Signs Vital Sign Reading Time Taken Comments Blood Pressure 148/100 05/13/2025 12:16 PM EST ma nual Pulse 105 05/13/2025 11:17 AM EST Temperature 36.8 C (98.2 F) 05/13/2025 11:17 AM EST Respiratory Rate 16 05/13/2025 11:17 AM EST Oxygen Saturation 100% 05/13/2025 11:17 AM EST Inhaled Oxygen Concentration - - Weight 93.9 kg (207 lb) 05/13/2025 11:17 AM EST Height 160 cm (5' 3 ) 05/13/2025 11:17 AM EST Body Mass Index 36.67 05/13/2025 11:17 AM EST documented in this encounter Miscellaneous Notes * Assessment & Plan Note - Velia Gordon MD - 05/13/2025 12:52 PM EST Associated Problem(s): Hypertensive disorder Uncontrolled, likely related to new onset of DM. Patient to go to ED, her EKG is within normal limits. She will continue with same BP medications for now and follow-up with PCP upon discharge. * Assessment & Plan Note - Velia Gordon MD - 05/13/2025 12:46 PM EST Associated Problem(s): Type 2 diabetes mellitus with hyperglycemia, without long-term current use of insulin (HCC) - Newly diagnosed diabetes mellitus with significant hyperglycemia (blood glucose >500 mg/dL/ fgstk HHH and A1c of 13), currently symptomatic and with ketones in urine. She has uncontrolled HTN likely secondary to new onset of DM. - Recommended immediate evaluation and management in the emergency room to rule out other underlying conditions, IVF and likely parenteral insulin. I discussed with patient and daughter Chery, the potential risk for cardiovascular complications with this level of glucose, they both agree to go toED. I called [facility] ED and spoke with Gale (lending consultant) for a soft sign out. - Patient to follow-up with PCP upon discharge * Assessment & Plan Note - Velia Gordon MD - 05/13/2025 12:43 PM EST Associated Problem(s): Subacute vaginitis - It's likely due to candidiasis as a result of new onset of DM, - Vaginal swab ordered for further evaluation. - Diflucan x 1 dose * Assessment & Plan Note - Velia Gordon MD - 05/13/2025 12:41 PM EST Associated Problem(s): Blurry vision, bilateral - Blurry vision likely secondary to hyperglycemia associated with newly diagnosed diabetes mellitus. - Recommended evaluation and management in the emergency room for acute hyperglycemia. documented in this encounter Plan of Treatment Upcoming Encounters Date Type Department Care Team (Late st Contact Info) Description 05/27/2025 3:45 PM EST Office Visit [facility] [address] [place] [address] Estefania Hurley MD [address] [place] [address] 06/13/2025 2:00 PM EST Office Visit [facility] [address] [place] [address] Estefania Hurley MD [address] [place] [address] Scheduled Orders Name Type Priority Associated Diagnoses Orde r Schedule Bacterial Vaginosis Microbiology Routine Subacute vaginitis Expected: 05/13/2025 (Approximate), Expires: 05/13/2026 documented as of this encounter Procedures Procedure Name Priority Date/Time Associated Diagnosis Comments ECG 12-LEAD Routine 05/13/2025 12:53 PM EST Hypertension, unspecified type POCT URINALYSIS DIPSTICK Routine 05/13/2025 12:20 PM EST Subacute vaginitis POCT GLYCATED HEMOGLOBIN, TOTAL Routine 05/13/2025 12:18 PM EST Blurry vision, bilateral POCT GLUCOSE Routine 05/13/2025 12:18 PM EST Blurry vision, bilateral documented in this encounter Results * ECG 12 lead (05/13/2025 12:53 PM EST) Narrative Velia Gordon MD - 05/13/2025 12:53 PM EST NSR at [address]pm[address] Normal [address]. No ST/T abnormalities. No ischemic changes Velia Gordon MD ECG ORDERABLES Final Re sult * (ABNORMAL) POCT Urinalysis (05/13/2025 12:20 PM EST) Color, UA Yellow Clarity, UA Clear Glucose, UA 3+ 500+++ Comment:500 mg/dL Bilirubin, UA Negative Ketones, UA Positive Comment:15mg/dL Spec Grav, UA 1.020 Blood, UA Positive(A) Negative, None Detected Comment:small pH, UA 6.0 Protein, UA 3+ 500+++ Comment:>=300 mg/dL Urobilinogen, UA 0.2 Leukocytes, UA Negative Negative, Rare, Trace Nitrite, UA Negative Negative, None Detected Appearance, UA yellow QC Media Lot # [id number] Lot# Expiration Date Urine (Urine, Random) 05/13/2025 12:20 PM EST Velia Gordon MD POINT OF CARE TEST ENTER /EDIT ORDERABLES Final Result * (ABNORMAL) POCT Hgb A1c (05/13/2025 12:18 PM EST) Hemoglobin A1C 13.0(A) 4.0 - 5.7 % QC Media Lot # [id number] Lot# Expiration Date [id number] Blood 05/13/2025 12:1 8 PM EST Velia Gordon MD POINT OF CARE TEST ENTER /EDIT ORDERABLES Final Result * (ABNORMAL) POCT Glucose (05/13/2025 12:18 PM EST) Glucose Blood, POC 500(A) 60 - 200 mg/dL Comment:[facility] QC Media Lot # [id number] Lot# Expiration Date 302, Blood Capillary blood specimen / Unknown 05/13/2025 12:18 PM EST Velia Gordon MD POINT OF CARE TEST ENTER /EDIT ORDERABLES Final Result documented in this encounter Visit Diagnoses Diagnosis Type 2 diabetes mellitus with hyperglycemia, without long-term current use of insulin (HCC)- Primary Blurry vision, bilateral Other specified visual disturbances Subacute vaginitis Hypertension, unspecified type documented in this encounter Care Teams Counselor Aide Relationship Specialty Start Date End Date Estefania Hurley MD [address] [place] [address] PCP - General Family Medicine 08/04/23 documented as of this encounter
[2025-05-13 12:31] VITALS: BP 140/95; PULSE 91; RESP 18; TEMP 36.3; O2SAT 98; BMI 36.9
--- NOTE | 2025-05-13 12:31 | ED_ITS ---
HPI - General Adult General Chief complaint: Recheck/Abnormal Lab/Rx Stated complaint: high bs, a1c is 13. 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 She denies any history of diabetes in the past. She has been having increased thirst and urination. She was sent to the ED from the [facility] for further workup. She has no nausea vomiting diarrhea or fevers MD complaint: New onset diabetes Onset (ago): day(s) (2) Relieving factors: none Exacerbating factors: eating Associated symptoms: other Treatments prior to arrival: none Related Data Previous Rx's ?Medication ?Instructions ?Recorded cetirizine 10 mg tablet (Zyrtec) 10 mg PO DAILY 30 day s #30 tabs 05/04/23 metoprolol succinate 50 mg 50 mg PO DAILY 30 days #30 tabs 05/04/23 tablet,extended release 24 hr lisinopril 20 mg tablet 20 mg PO DAILY 30 days #30 t abs 05/05/23 amlodipine 10 mg tablet 10 mg PO DAILY 30 days #30 t abs 08/05/23 alcohol swabs 1 pad topical QIDACHS #100 e a 05/13/25 blood sugar diagnostic (FreeStyle #100 ea 05/13/25 Lite Strips) blood-glucose meter (FreeStyle #1 ea 05/13/25 Lite Meter kit) insulin glargine 100 unit/mL (3 10 unit (0.1 mL) subcu t DAILY #15 05/13/25 mL) subcutaneous pen (Lantus mL Solostar U-100 Insulin) lancets 28 gauge (FreeStyle #100 ea 05/13/25 Lancets) metformin 500 mg tablet 500 mg PO BID #60 tabs 05/13 pen needle, diabetic 32 gauge x #100 ea 05/13/25 1/4 Allergies Allergy/AdvReac Type Severity Reaction Status Date / Time Seasonal Allergies Allergy Intermediate Runny Nose Verified 05/13/25 12:33 Review of Systems 2 Review of Systems: Constitutional : No Fever, No Chills, No Fatigue ENT/Mouth : No sore throat, No Rhinorrhea Eyes: No Eye Pain, No Swelling, No Redness, positive blurred vision Cardiovascular : No Chest Pain, No SOB, No Dyspnea on Exertion Respiratory : No Cough, No Sputum Gastrointestinal : No Nausea, No Vomiting, No Diarrhea, No abdominal Pain Genitourinary : No Dysuria, No Urinary Frequency, No Hematuria, Musculoskeletal : No joint pain, No Myalgias, No Joint Swelling Skin : No Skin Lesions, No rash Neuro : No Weakness, No Numbness, No Dizziness, positive Headache Psych : No Anxiety/Panic, No Depression Heme/Lymph: No Bruising, No Bleeding,No Lymphadenopathy Endocrine : pos Polyuria, pos Polydipsia All other systems reviewed and are negative [facility] Past Medical History Attestation statement: The following information was validated with the patient. Source: old records reviewed Medical History Back disorder High blood pressure Sinusitis History of nephrolithotomy with removal of calculi Brain aneurysm Surgical History S/P clamping of cerebral aneurysm Family History Family History Mother High blood pressure Diabetes Family/Other High blood pressure Social History Social History Housing: House Patient Tobacco Use Status: Never used Tobacco Smoked in Last 30 Days: No e-Cigarette/Vaping Use: Never Used Use of substances other than those prescribed or required for medical reasons: No Advance Directives: No Advance Directives Information Provided: No service: No Current occupational status: unemployed Cognitive needs: No Hearing needs: No Vision needs: Yes Physical Exam ED Vital Signs: Vital Signs - 24 hr 05/13/25 12:31 05/13/25 13:25 Temperature 97.3 F Pulse Rate 91 85 Respiratory Rate 18 16 Blood Pressure 140/95 H Pulse Oximetry 98 Oxygen Delivery Method Room Air BMI result Body Mass Index 36.9 Appearance: Alert. Oriented X3. No acute distress. Eyes: Pupils equal, round and reactive to light. ENT: Pharynx normal. Neck: Normal inspection. Neck supple. CVS: Normal heart rate and rhythm. Pulses normal. Respiratory: No respiratory distress. Breath sounds normal. Abdomen: Soft and nontender. Skin: Skin warm and dry. Normal skin color. Normal skin turgor. Extremities: No lower extremity edema. No calf ttp Neuro: Oriented X 3. No motor deficit. No sensory deficit. CN2-12 intact Course Course Course Narrative: Rapid medical examination performed in triage by Sarai Vu PA-C: Patient is a 50 year old assigned female at presenting to the emergency department with increased urination, feeling generally unwell, and increased thirst with a HGBA1C >13%. Detailed physical exam and review of systems are deferred to the senior compliance analyst. EKG, labs, imaging, swabs ordered. Patient placed back in the waiting room pending room availability and results. Medications Administered Discontinued Medications Generic Name Dose Route Start Last Admin Trade Name Freq PRN Reason Stop Dose Admin Lactated Ringer's 1,000 mls @ 999 mls/hr 05/13/25 13:32 05/13/25 14:45 Lr IV 05/13/25 14:32 Infused .Q1H1M ONE Infusion Insulin Human Regular 5 unit 05/13/25 13:32 05/13/25 13:46 Insulin Regular, Human 100 Unit/Ml 10 Ml Vial IVPUSH 05/13/25 13:33 5 unit ONCE ONE Administration Medical Decision Making Medical Decision Making [facility] Narrative: 50-year-old female with past medical history of hypertension, history of ruptured cerebral aneurysm treated in [place] in 2007 with clipping now here with vague symptoms of intermittent blurry vision but no other neuro deficits, polyuria polydipsia, and hemoglobin A1c at [facility] of 13.3. At this time she will need labs to evaluate for HHS and DKA, I am going to start on IV insulin and IV fluids. Will obtain CT head given blurry vision and prior clipping though she has no headache Differential Diagnosis Differential Diagnoses: The differential diagnosis associated with the presentation includes New onset diabetes, low suspicion for HHS or DKA, RON, lyte abnormality, dehydration Admission/Observation Consideration of admission/observation: Escalation of care including admission/observation considered She has intermittent blurry vision on and off for 1 week with no acute findings on CT scan she is not in DKA She has a primary care and has [facility] she can be started on 10 units Lantus as well as metformin I do not think she requires admission given symptoms have been waxing and waning for over a week We will also start on baby aspirin Blood sugar in 300s no signs of DKA Lab Data MDM Lab Attestation statement: I reviewed the patient's lab results. 05/13/25 13:00 05/13/25 13:00 Labs: Lab Results 05/13/25 05/13/25 05/13/25 Range/Units 13:00 13:07 13:22 WBC 5.7 (4.8-10.8) X10*3/uL RBC 4.67 (4.20-5.50) X10*6/uL Hgb 13.1 (12.0-16.0) g/dl Hct 39.9 (37.0-47.0) % MCV 85.4 (80.0-98.0) fL MCH 28.1 (27.0-33.0) pg MCHC 32.8 (31.0-35.0) g/dl RDW 12.5 (11.0-16.0) % Plt Count 296 (160-400) X10*3/uL MPV 10.7 (9.4-12.3) fL Immature Gran % (Auto) 0.2 (0.0-0.4) % Neut % (Auto) 53.5 (45-73) % Lymph % (Auto) 34.9 (20-40) % Angelina % (Auto) 8.4 (2-11) % Eos % (Auto) 1.6 (0-4) % Baso % (Auto) 1.4 (0-2) % Lymph # (Auto) 2.0 (1.2-4.9) X10*3/uL Angelina # (Auto) 0.5 (0.1-1.2) X10*3/uL Eos # (Auto) 0.1 (0.0-0.4) X10*3/uL Baso # (Auto) 0.1 (0.0-0.2) X10*3/uL Abs Immat Gran (auto) 0.01 (0.00-0.03) X10*3/uL Absolute Neuts (auto) 3.1 (2.0-8.3) x10*3/uL Absolute Nucleated RBC 0.000 (0.0-0.012) X10*3/uL Nucleated RBC % (auto) 0.0 (0.0-0.2) /100WBC VBG pH 7.40 (7.32-7.43) VBG pCO2 43 mmHg VBG pO2 43 mmHg VBG HCO3 27 H (22-26) mmol/L VBG O2 Saturation 66.0 % VBG Base Excess 1.9 mmol/L Sodium 137 (135-145) mmol/L Potassium 3.6 (3.3-5.1) mmol/L Chloride 100 (96-108) mmol/L Carbon Dioxide 27 (22-29) mmol/L Anion Gap 14 (12-20) BUN 16 (9-16) mg/dL Creatinine 1.20 (0.5-1.4) mg/dL Estim Creat Clear Calc 62.0 Estimated GFR 48 POC Glucose 470 H* (60-115) mg/dL Random Glucose 516 H* (60-115) mg/dL Calcium 9.4 (8.4-10.2) mg/dL Magnesium 2.0 (1.6-2.6) mg/dL Total Bilirubin 0.4 (0.0-1.0) mg/dL AST 26 (5-31) U/L ALT 33 H (0-31) U/L Alkaline Phosphatase 144 H (39-117) U/L Troponin I High Sens < 2.7 (<3.5-17.0) ng/L Total Protein 8.1 H (6.5-8.0) g/dL Albumin 4.8 (3.5-5.0) g/dL Beta-Hydroxybutyrate 0.38 H (0.02-0.27) mmol/L COVID-19 (JESÚS) Negative (Negative) COVID-19 Clin Com See Note Influenza Type A (WILVER) Negative (Negative) Influenza Type B (WILVER) Negative (Negative) Influenza A & B Note See Note 05/13/25 Range/Units 14:47 WBC (4.8-10.8) X10*3/uL RBC (4.20-5.50) X10*6/uL Hgb (12.0-16.0) g/dl Hct (37.0-47.0) % MCV (80.0-98.0) fL MCH (27.0-33.0) pg MCHC (31.0-35.0) g/dl RDW (11.0-16.0) % Plt Count (160-400) X10*3/uL MPV (9.4-12.3) fL Immature Gran % (Auto) (0.0-0.4) % Neut % (Auto) (45-73) % Lymph % (Auto) (20-40) % Angelina % (Auto) (2-11) % Eos % (Auto) (0-4) % Baso % (Auto) (0-2) % Lymph # (Auto) (1.2-4.9) X10*3/uL Angelina # (Auto) (0.1-1.2) X10*3/uL Eos # (Auto) (0.0-0.4) X10*3/uL Baso # (Auto) (0.0-0.2) X10*3/uL Abs Immat Gran (auto) (0.00-0.03) X10*3/uL Absolute Neuts (auto) (2.0-8.3) x10*3/uL Absolute Nucleated RBC (0.0-0.012) X10*3/uL Nucleated RBC % (auto) (0.0-0.2) /100WBC VBG pH (7.32-7.43) VBG pCO2 mmHg VBG pO2 mmHg VBG HCO3 (22-26) mmol/L VBG O2 Saturation % VBG Base Excess mmol/L Sodium (135-145) mmol/L Potassium (3.3-5.1) mmol/L Chloride (96-108) mmol/L Carbon Dioxide (22-29) mmol/L Anion Gap (12-20) BUN (9-16) mg/dL Creatinine (0.5-1.4) mg/dL Estim Creat Clear Calc Estimated GFR POC Glucose 394 H* (60-115) mg/dL Random Glucose (60-115) mg/dL Calcium (8.4-10.2) mg/dL Magnesium (1.6-2.6) mg/dL Total Bilirubin (0.0-1.0) mg/dL AST (5-31) U/L ALT (0-31) U/L Alkaline Phosphatase (39-117) U/L Troponin I High Sens (<3.5-17.0) ng/L Total Protein (6.5-8.0) g/dL Albumin (3.5-5.0) g/dL Beta-Hydroxybutyrate (0.02-0.27) mmol/L COVID-19 (JESÚS) (Negative) COVID-19 Clin Com Influenza Type A (WILVER) (Negative) Influenza Type B (WILVER) (Negative) Influenza A & B Note Independent Interpretation I performed an independent interpretation of an: EKG, Plain X-Ray (No pneumonia) and CT Scan (No acute finding) Interpretation: Rate: 88 Rhythm: NSR Hico:left Normal P waves. Normal SKYE. Normal QRS complex. ST T wave : T-wave inversion in lead 3 there is subtle upward sloping of ST segments in 1 and aVL but no 1mm elevation qTC: 459 prior studies: no prior The study has been interpreted contemporaneously by me. . Radiology Impression Discussion of test interpretation with radiology: I have reviewed the radiologist's reading. Independent Historian Clinical information obtained from an independent historian. History obtained from or confirmed by: Other External Record Review External record reviewed: Outpatient record Prescription Management I considered prescription management with: Other Discharge Plan Discharge Clinical Impression: Diabetes mellitus, new onset Patient Disposition: Home, Self-Care Instructions: How to Give an Insulin Injection (ED), Diabetes and Your Skin (ED), Diabetes and Your Mouth (ED), Diabetes and Nutrition (ED), How to Check your Blood Sugar (ED), Type 2 Diabetes Management for Adults (ED) Additional Instructions: Your head CT was normal Your labs are reassuring other than elevated blood glucose At this time given your hemoglobin A1c he will need to be started on pills for blood sugar and a shot at night You need to check your blood sugar before every meal you should seek medical care if it is above 500 You can take your Lantus starting tonight please go to the pharmacy and pick and shovel worker all of your medications, your next dose of metformin is tomorrow morning You need to follow up with your primary care doctor and get an eye exam with an eye doctor as soon as possible Take a baby aspirin 81 mg daily Return for any worsening symptoms or concerns such as fever over 101, unable to eat or drink, increasing pain, numbness or weakness, or any other concerns Prescriptions: New (DME) FreeStyle Lite Strips Strip Qty: 100 0RF Rx Instructions: Test four times a day or as directed. (DME) blood-glucose meter [FreeStyle Lite Meter] Kit Qty: 1 0RF Rx Instructions: As Directed alcohol swabs Pads, Medicated 1 pad TOPICAL QIDACHS Qty: 100 0RF Rx Instructions: Use four times a day or as directed. insulin glargine [Lantus Solostar U-100 Insulin] 100 unit/mL (3 mL) insulin pen 10 unit SUBCUT DAILY Qty: 15 0RF (DME) pen needle, diabetic 32 gauge x 1/4 needle Qty: 100 0RF Rx Instructions: Use four times a day or as directed. (DME) lancets [FreeStyle Lancets] 28 gauge misc Qty: 100 0RF Rx Instructions: Test four times a day or as directed. metformin 500 mg tablet 500 mg PO BID Qty: 60 2RF No Action lisinopril 20 mg tablet 20 mg PO DAILY 30 Days Qty: 30 2RF amlodipine 10 mg tablet 10 mg PO DAILY 30 Days Qty: 30 3RF metoprolol succinate 50 mg tablet extended release 24 hr 50 mg PO DAILY 30 Days Qty: 30 3RF cetirizine [Zyrtec] 10 mg tablet 10 mg PO DAILY 30 Days Qty: 30 1RF Stand Alone Forms: Work/School Release Print Language: Kazakh
--- NOTE | 2025-05-13 12:32 | ECG_ITS ---
Test Reason : weakness Blood Pressure : */* mmHG Vent. Rate : 83 BPM Atrial Rate : 83 BPM P-R Int : 150 ms QRS Dur : 78 ms QT Int : 380 ms P-R-T Axes : 58 5 10 degrees QTcB Int : 446 ms Normal sinus rhythm Normal ECG No previous ECGs available Referred By: Sarai Vu Electronically Signed By: Constantino Joe
[2025-05-13 13:09] LABS: MANUAL DIFF FLAG NO
[2025-05-13 13:13] LABS: Hematocrit 39.9 % (37.0-47.0); Hemoglobin 13.1 g/dl (12.0-16.0); Imm Gran Abs Auto 0.01 X10*3/uL (0.00-0.03); Imm Gran Pct Auto 0.2 % (0.0-0.4); Lymphocytes Absolute Auto 2.0 X10*3/uL (1.2-4.9); Mean Corpuscular HGB Conc 32.8 g/dl (31.0-35.0); Mean Corpuscular Hemoglobin 28.1 pg (27.0-33.0); Mean Corpuscular Volume 85.4 fL (80.0-98.0); NRBC Abs Auto 0.000 X10*3/uL (0.0-0.012); NRBC Pct Auto 0.0 /100WBC (0.0-0.2); Platelet Count 296 X10*3/uL (160-400); Red Blood Count 4.67 X10*6/uL (4.20-5.50); White Blood Count 5.7 X10*3/uL (4.8-10.8)
[2025-05-13 13:14] LABS: Venous Blood Gas Refer to POC result
[2025-05-13 13:14] LABS: VBG HCO3 27 mmol/L (22-26); VBG O2 % Saturation 66.0 %
--- NOTE | 2025-05-13 13:16 | ECG_ITS ---
Test Reason : ?st DEPRESSION Blood Pressure : */* mmHG Vent. Rate : 88 BPM Atrial Rate : 88 BPM P-R Int : 150 ms QRS Dur : 74 ms QT Int : 380 ms P-R-T Axes : 51 6 12 degrees QTcB Int : 459 ms Normal sinus rhythm Normal ECG When compared with ECG of 13-May-2025 12:53, No significant change was found Referred By: Velia Gordon Electronically Signed By: Constantino Joe
[2025-05-13 13:25] VITALS: PULSE 85; RESP 16
[2025-05-13 13:26] LABS: Glucose, Whole Blood 470 mg/dL (60-115)
[2025-05-13 13:39] LABS: COVID-19 Test Negative (Negative); IDNOW Serial# 55D5AD1C; Troponin-I High Sensitivity < 2.7 ng/L (<3.5-17.0)
[2025-05-13 13:40] LABS: IDNOW Serial# 58CA691E; Influenza B2 Negative (Negative)
[2025-05-13 13:41] LABS: Alanine Aminotransferase 33 U/L (0-31); Albumin Level 4.8 g/dL (3.5-5.0); Alkaline Phosphatase 144 U/L (39-117); Anion Gap 14 (12-20); Aspartate Amino Transferase 26 U/L (5-31); Blood Urea Nitrogen 16 mg/dL (9-16); Calcium 9.4 mg/dL (8.4-10.2); Carbon Dioxide 27 mmol/L (22-29); Chloride 100 mmol/L (96-108); Creatinine Clr Calc Pharmacy 62.0; Estimated Glomerular Filt Rate 48; Magnesium 2.0 mg/dL (1.6-2.6); Potassium 3.6 mmol/L (3.3-5.1); Sodium 137 mmol/L (135-145); Total Protein 8.1 g/dL (6.5-8.0)
[2025-05-13] MEDS: Lactated Ringers 1,000 ML 999 ML IV (13:46)
[2025-05-13 14:51] LABS: Glucose, Whole Blood 394 mg/dL (60-115)
[2025-05-13 15:52] LABS: Glucose, Whole Blood 365 mg/dL (60-115)
[2025-05-13 16:04] VITALS: PULSE 92; RESP 16; TEMP 36.7
[2025-05-13 16:05] VITALS: BP 140/85; PULSE 92; RESP 16; TEMP 36.7; O2SAT 99
--- OUTSIDE RECORDS SUMMARY | 2025-05-13 18:42 | XMS_ITS | Encounter Summary ---
Author Organization [employer] Address [address] [facility] [address] [place] [address] Care Team Providers Care Wind Energy Project Manager Name Role Phone Estefania Hurley MD Primary Care Provider [phone] Encounter Details Date Type Department Care Team (Latest Contact Info) Description 05/13/2025 Travel Social History Tobacco Use Types Packs/Day Years [...] PM EST documented as of this encounter Plan of Treatment Upcoming Encounters Date Type Department Care Team (Late st Contact Info) Description 05/27/2025 3:45 PM EST Office Visit [facility] [address] [place] [address] Estefania Hurley MD [address] [place] [address] 06/13/2025 2:00 PM EST Office Visit [facility] [address] [place] [address] Estefania Hurley MD [address] [place] [address] documented as of this encounter Visit Diagnoses Not on filedocumented in this encounter Care Teams Wind Energy Project Manager Relationship Specialty Start Date End Date Estefania Hurley MD [address] [place] [id number] PCP - General Family Medicine 08/04/23 documented as of this encounter
--- OUTSIDE RECORDS SUMMARY | 2025-05-13 18:42 | XMS_ITS | Encounter Summary ---
Author Organization [employer] Address [address] [facility] [address] [place] [address] Care Team Providers Care Coding Specialist Name Role Phone Estefania Hurley MD Primary Care Provider [phone] Reason for Visit * Reason Onset Date Comments Med Refill 03/07/2025 Encounter Details Date Type Department Care Team ([facility] Contact Info) Description 03/07/2025 Telephone [facility] [address] [place] [address] Estefania Hurley MD [address] [place] [address] Med Refill Social History Tobacco Use Types Packs/Day Years Used Date Smoking Tobacco: Never Passive Smoke Exposure: Never Smokeless Tobacco: Never Alcohol Use Standard Drinks/Week Comments Never 0 (1 standard drink = 0.6 oz pur e alcohol) Housing Stability Answer Date Recorded What is your housing situation today? I have sherri abel 07/27/[address] you li [...] PM EST documented as of this encounter Miscellaneous Notes * Telephone Encounter - Jocelyn Hays LPN - 03/07/2025 1:53 PM EDT Medication was sent to [facility] #[id number] on 02/05/25 #90 with 1 refill patient can call pharmacy and transfer medication. Pharmacy also not listed. * Telephone Encounter - Cooper Fonseca - 03/07/2025 1:42 PM EDT TC from pt requesting medication refill. Medications needing refill : amLODIPine (Norvasc) 10 MG tablet [place] [facility] [place] [address] Pt is currently in [place] and will be returning at the end of March documented in this encounter Plan of Treatment Upcoming Encounters Date Type Department Care Team (Late st Contact Info) Description 05/27/2025 3:45 PM EST Office Visit [facility] [address] [place] [address] Estefania Hurley MD [address] [place] [address] 06/13/2025 2:00 PM EST Office Visit [facility] [address] [place] [address] Estefania Hurley MD [address] [place] [address] documented as of this encounter Visit Diagnoses Not on filedocumented in this encounter Care Teams Coding Specialist Relationship Specialty Start Date End Date Estefania Hurley MD [address] [place] [id number] PCP - General Family Medicine 08/04/23 documented as of this encounter
--- OUTSIDE RECORDS SUMMARY | 2025-05-13 18:43 | XMS_ITS | Clinical Summary ---
Author Organization [facility] Address [address] [place] [address] 7 [place] [address] Care Team Providers Care Oracle Specialist Name Role Phone Estefania Hurley MD Primary Care Provider [phone] Allergies No known active allergies Medications oxymetazoline (Afrin Nasal [place]) 0.05 % nasal sprayIndication s:Rhinosinusiti s Administer 2 sprays into each nostril every 12 (twelve) hours if needed for congestion for up to 2 days. Do not use for more than 3 days. 30 mL 4 Active fluticasone (Flonase) 50 MCG/ACT nasal sprayIndication s:Nasal congestion Administer 1 spray into each nostril 2 times daily. Shake gently. Before first use, prime pump. After use, clean tip and replace cap. 16 g 2 5 07/16/19 26 Active fexofenadine (Caitlin) 180 MG tabletIndicatio ns:Cough in adult patient,Seasona l allergies Take 1 tablet (180 mg) by mouth Once per day. 30 tablet 5 Active amLODIPine (Norvasc) 10 MG tablet TAKE 1 TABLET(10 MG) BY MOUTH DAILY 90 tablet 1 5 Active metoprolol succinate XL (Toprol-XL) 50 MG 24 hr tablet TAKE 1 TABLET(50 MG) BY MOUTH DAILY. DO NOT CRUSH OR CHEW 90 tablet 1 5 Active lisinopril 20 MG tablet TAKE 1 TABLET(20 MG) BY MOUTH DAILY 90 tablet 1 5 Active Active Problems Problem Noted Date Diagnosed Date Blurry vision, bilateral 05/13/2025 Assessment & Plan (05/13/2025 12:41 PM EST): - Blurry vision likely secondary to hyperglycemia associated with newly diagnosed diabetes mellitus. - Recommended evaluation and management in the emergency room for acute hyperglycemia. Subacute vaginitis 05/13/2025 Assessment & Plan (05/13/2025 12:43 PM EST): - It's likely due to candidiasis as a result of new onset of DM, - Vaginal swab ordered for further evaluation. - Diflucan x 1 dose Type 2 diabetes mellitus wit h hyperglycemia, without long-term current use of insulin 05/13/2025 Assessment & Plan (05/13/2025 12:46 PM EST): - Newly diagnosed diabetes mellitus with significant [...] of glucose, they both agree to go to ED. I called [facility] ED and spoke with Gale (national accounts sales) for a soft sign out. - Patient to follow-up with PCP upon discharge Rhinosinusitis 10/14/2023 Assessment & Plan (10/15/2023 2:17 AM EDT): Confirmed congestion and sinus discomfort. Related Orders: Oxymetazoline, 0.05% Nasal [place] Amoxicillin, 500 MG tablet Trigger finger, left middle finger 10/14/2023 Assessment & Plan (10/15/2023 2:17 AM EDT): Morning stiffness and swelling. Relevant Orders: Referral to Dr. López for hand surgery. Encounter for removal and re insertion of intrauterine contraceptive device (IUD) 09/13/2023 Assessment & Plan (09/13/2023 9:52 AM EST): When we were doing pap smear noticed device was partially expulsed, removed and reinserted new device, tolerated procedure well. Class 2 severe obesity with serious comorbidity and body mass index (BMI) of 36.0 to 36.9 in adult 09/06/2023 Assessment & Plan (09/06/2023 6:34 PM EST): Discussed calorie deficit, recommended reduction of 20-30% of maintenance calories; Recommended to decrease soda and sugary beverage consumption. Recommended at least 20 g per meal of protein to assist with satiety. Recommended at least 150 min/week of moderate intensity exercise. Palpitations 08/04/2023 Assessment & Plan (09/06/2023 6:34 PM EST): Reports hx of palpitations, she is concerned of symptoms, proceed with referral to cardiology, testing and holter monitor. Future Appointments Date Time Provider Department Center 09/09/2023 8:30 AM Estefania Hurley MD [facility] Encounter for health-related screening Hypertensive disorder 11/10/2022 08/04/2023 Assessment & Plan (05/13/2025 12:52 PM EST): Uncontrolled, likely related to new onset of DM. Patient to go to ED, her EKG is within normal limits. She will continue with same BP medications for now and follow-up with PCP upon discharge. Assessment & Plan (10/15/2023 2:17 AM EDT): Controlled, f/u in a few months for recheck. Encounters Date Type Department Care Team Description 05/13/2025 11:00 AM EST Office Visit [facility] [address] [place] [address] Type 2 diabetes mellitus with hyperglycemia, without long-term current use of insulin (HCC) (Primary Dx); Blurry vision, bilateral; Subacute vaginitis; Hypertension, unspecified type 05/13/2025 Orders Only GENERIC EXTERNAL DATA DEPARTMENT Provider, Generic External Data 05/13/2025 Travel 05/06/2025 Telephone [facility] [address] [place] [address] Estefania Hurley MD Nurse Triage 04/12/2025 Telephone [facility] [address] [place] [address] Estefania Hurley MD Nurse Triage 03/07/2025 Telephone [facility] [address] [place] [address] Estefania Hurley MD Med Refill from Last 3 Months Social History Tobacco Use Types Packs/Day Years Used Date Smoking Tobacco: Never Passive Smoke Exposure: Never Smokeless Tobacco: Never Tobacco Cessation:Counseling Given: Not Answered Alcohol Use Standard Drinks/Week Comments Never 0 (1 standard drink = 0.6 oz pur e alcohol) Housing Stability Answer Date Recorded What is your housing situation today? I have sherripaco abel 07/27/[address] you [...] Orientation Straight 06/09/2023 3: 37 PM EST Last Filed Vital Signs Vital Sign Reading Time Taken Comments Blood Pressure 148/100 05/13/2025 12:16 PM EST rafat nual Pulse 105 05/13/2025 11:17 AM EST Temperature 36.8 C (98.2 F) 05/13/2025 11:17 AM EST Respiratory Rate 16 05/13/2025 11:17 AM EST Oxygen Saturation 100% 05/13/2025 11:17 AM EST Inhaled Oxygen Concentration - - Weight 93.9 kg (207 lb) 05/13/2025 11:17 AM EST Height 160 cm (5' 3 ) 05/13/2025 11:17 AM EST Body Mass Index 36.67 05/13/2025 11:17 AM EST Plan of Treatment Upcoming Encounters Date Type Department Care Team (Late st Contact Info) Description 05/27/2025 3:45 PM EST Office Visit [facility] [address] [place] [address] Estefania Hurley MD [address] [place] [address] 06/13/2025 2:00 PM EST Office Visit [facility] [address] [place] [address] Estefania Hurley MD [address] [place] [address] Health Maintenance Due Date Last Done Comments CT Colonography 1975 Colonoscopy 1976 Depression Screening 1975 FIT 1975 Sigmoidoscopy 1976 Diabetes: Foot Exam 1986 Eye Exam 1986 Alcohol/Substance Use Screening 1988 Family Planning (PISQ) 1991 DTaP/Tdap/Td Vaccines (1 - Tdap) 1995 Diabetes: Urine Protein Screening 1995 Hepatitis B Vaccines (1 of 3 - 19+ 3-dose series) 1995 Pneumococcal Vaccine: Pediatrics (0 to 5 Years) and At-Risk Patients (6 to 49) Years (1 of 2 - PCV) 1995 SDOH Screening 07/27/2024 07/27/2023 Lipid Panel 09/06/2024 09/06/2023 Mammogram 09/12/2024 09/13/2023 FOBT 09/18/2024 09/19/2023 COVID-19 Vaccine (3 - 2024-2 6 season) 2025 04/29/2021, 04/01/2021 Influenza Vaccine (#1) 2025 Disability Screening 08/03/2025 08/03/2024 Diabetes: Hemoglobin A1C 08/13/2025 05/13/2025 Zoster Vaccines (1 of 2) 2026 Tobacco Screening 05/13/2026 05/13/2025 Colorectal Cancer Screening 09/18/2026 FIT DNA/Cologuard 09/18/2026 09/19/2023 Cervical Cancer Screening 09/08/2028 HPV/Cotest 09/08/2028 09/09/2023 Pap Smear 09/08/2028 09/09/2023 RSV Patients and Patients Aged 60 years or older (1 - 1-dose 75+ series) 2051 HIV Screening Completed 09/06/2023 Hepatitis C Screening Completed 09/06/2023 HIB Vaccines Aged Out No longer eligi ble based on patient's age to complete this topic HPV Vaccines Aged Out No longer eligi ble based on patient's age to complete this topic Hepatitis A Vaccines Aged Out No long er eligible based on patient's age to complete this topic IPV Vaccines Aged Out No longer eligi ble based on patient's age to complete this topic Meningococcal B Vaccine Aged Out No l onger eligible based on patient's age to complete this topic Meningococcal Vaccine Aged Out No dominique rosetta eligible based on patient's age to complete this topic RSV under 20 months Aged Out No longe r eligible based on patient's age to complete this topic Rotavirus Vaccines Aged Out No longer eligible based on patient's age to complete this topic Procedures Procedure Name Priority Date/Time Associated Diagnosis Comments GLUCOSE, WHOLE BLOOD Routine 05/13/2025 3:49 PM EST GLUCOSE, WHOLE BLOOD Routine 05/13/2025 2:[address] HEAD WO CONTRAST Routine 05/13/2025 1 :43 PM EST GLUCOSE, WHOLE BLOOD Routine 05/13/2025 1:22 PM EST VENOUS BLOOD GAS Routine 05/13/2025 1:07 PM EST XR CHEST 2 VIEWS Routine 05/13/2025 1:05 PM EST MAGNESIUM Routine 05/13/2025 1:00 PM EST COMPREHENSIVE METABOLIC PANEL Routine 05/13/2025 1:00 PM EST HIGH SENSITIVITY TROPONIN I Routine 05/13/2025 1:00 PM EST COVID-19 ID NOW (Clan Fight) Routine 05/13/2025 1:00 PM EST BETA-HYDROXYBUTYRATE Routine 05/13/2025 1:00 PM EST CBC WITH AUTO DIFFERENTIAL Routine 05/13/2025 1:00 PM EST INFLUENZA A B2 ID NOW (FULLER) Routine 05/13/2025 1:00 PM EST ECG 12-LEAD Routine 05/13/2025 12:53 PM EST Hypertension, unspecified type POCT URINALYSIS DIPSTICK Routine 05/13/2025 12:20 PM EST Subacute vaginitis POCT GLYCATED HEMOGLOBIN, TOTAL Routine 05/13/2025 12:18 PM EST Blurry vision, bilateral POCT GLUCOSE Routine 05/13/2025 12:18 PM EST Blurry vision, bilateral LAB COLOGUARD COLON CANCER SCREEN Routine 09/19/2023 1:00 PM EDT Encounter for health-related screening BI MAMMOGRAM SCREENING TOMOSYNTHESIS BILATERAL Routine 09/13/2023 3:10 PM EST Encounter for health-related screening HPV MRNA E6/E7 REFLEX TO HPV 16, 18/45 Routine 09/09/2023 8:30 AM EST PAP SMEAR Routine 09/09/2023 8:30 AM EST Cervical cancer screening HEPATITIS C AB W/REFL TO HCV RNA, QN, PCR Routine 09/06/2023 8:09 AM EST Encounter for health-related screening HIV 1/2 ANTIGEN/ANTIBODY, FOURTH GENERATION W/RFL Routine 09/06/2023 8:09 AM EST Encounter for health-related screening LIPID PANEL, STANDARD Routine 09/06/2023 8:09 AM EST Class 2 severe obesity with serious comorbidity and body mass index (BMI) of 36.0 to 36.9 in adult, unspecified obesity type from Last 3 Months or Most Recently Relevant to Health Maintenance Results * (ABNORMAL) Glucose, Whole Blood (05/13/2025 3:49 PM EST) Only the most recent of3 resultswithin the time period is included. Glucose, Whole Blood 365(HH) 60 - 115 mg/dL [facility] Comment:METER #: [id number] 05/13/2025 3:49 PM EST 05/13/2025 3:52 PM EST us Generic External Data Provider LAB BLOOD ORDERAB LES Final Result Performing Organization Address City/State/[facility] Co de Phone Number [facility] [address] [place] [address] [phone] * CT Head w/o Contrast (05/13/2025 1:43 PM EST) Anatomical Region Laterality Modality Head, Neck Computed Tomogra phy 05/13/2025 1:43 PM EST Narrative 05/13/2025 2:03 PM EST [place] [address] CT Scan Report Signed Patient: Radha Rios MR#: [id number] : 1975 Acct:[id number] Age/Sex: 50 / F ADM Date: 05/13/25 Loc: HO.ED Attending Dr: Ordering Physician: Roxie Molina DO Date of Service: 05/13/25 Procedure(s): CT head/brain wo IV con Accession Number(s): [id number] cc: Roxie Molina DO; Estefania Hurley MD Report Number: [id number]: Total DLP = 680.00 mGy-cm Reason for Exam: vision changes EXAMINATION: CT HEAD WITHOUT CONTRAST CLINICAL INFORMATION: Degenerative changes COMPARISON: None available. TECHNIQUE: Contiguous axial imaging was performed from the skull base to vertex without intravenous administration of contrast. This CT examination was performed using dose optimization techniques as appropriate, variously including the following: *Automated exposure control *Adjustment of mA and/or kV according to patient size (this includes techniques or standardized protocols for targeted exams where dose is matched to indication/reason for exam; i.e. extremities or head) *Use of iterative reconstruction technique FINDINGS: There is no acute ischemic change. There is no intracranial hemorrhage. There is no mass-effect or midline shift. Basal cisterns and ventricles are within normal limits for age/cerebral volume. Right frontal craniotomy has been performed with clips present in the lower right frontal region likely related to clipping of MCA aneurysm. Orbits are symmetrical and unremarkable. Paranasal sinuses and mastoid air cells are pneumatized. There are no bony abnormalities. CT/CT head/brain wo IV con IMPRESSION: Right frontal craniotomy and MCA aneurysm clips. No acute intracranial abnormality. Electronically signed by: Demar Gray MD 05/13/2025 02:00 PM [facility] Dictated By: Demar Gray MD Signed By: <Electronically signed by Demar Gray MD in OV> 05/13/25 1400 DD/ 1343 TD/TT: 05/13/25 1352 Cat Sitter: Procedure Note Donotuseinterpreter, Image - 05/13/[address] [address] [address] Scan Report Signed Patient: Sherrill Rios#: [id number] : 1975Acct:[id number] Age/Sex: 50 / FADM Date: 05/13/25 Loc: HO.ED Attending Dr: Ordering Physician: Roxie Molina DO Date of Service: 05/13/25 Procedure(s): CT head/brain wo IV con Accession Number(s): [id number] cc: Roxie Molina DO; Estefania Hurley MD Report Number: [id number]: Total DLP = 680.00 mGy-cm Reason for Exam: vision changes EXAMINATION: CT HEAD WITHOUT CONTRAST CLINICAL INFORMATION: Degenerative changes COMPARISON: None available. TECHNIQUE: Contiguous axial imaging was performed from the skull base to vertex without intravenous administration of contrast. This CT examination was performed using dose optimization techniques as appropriate, variously including the following: *Automated exposure control *Adjustment of mA and/or kV according to patient size (this includes techniques or standardized protocols for targeted exams where dose is matched to indication/reason for exam; i.e. extremities or head) *Use of iterative reconstruction technique FINDINGS: There is no acute ischemic change. There is no intracranial hemorrhage. There is no mass-effect or midline shift. Basal cisterns and ventricles are within normal limits for age/cerebral volume. Right frontal craniotomy has been performed with clips present in the lower right frontal region likely related to clipping of MCA aneurysm. Orbits are symmetrical and unremarkable. Paranasal sinuses and mastoid air cells are pneumatized. There are no bony abnormalities. CT/CT head/brain wo IV con IMPRESSION: Right frontal craniotomy and MCA aneurysm clips. No acute intracranial abnormality. Electronically signed by: Demar Gray MD 05/13/2025 02:00 PM EST Dictated By: Demar Gray MD Signed By: <Electronically signed by Demar Gray MD in OV> 05/13/25 1400 DD/ 1343 TD/TT: 05/13/25 1352 Cat Sitter: [facility] External Provider IMG CT PROCEDURES Edited Result - Final * (ABNORMAL) VENOUS BLOOD GAS (05/13/2025 1:07 PM EST) VBG pH 7.40 7.32 - 7.43 [facility] Comment:METER #: [id number] additional_comment: Jose laws VBG PCO2 43 mmHg [facility] Comment:METER #: [id number] additional_comment: Cb rojascr VBG PO2 43 mmHg [facility] Comment:METER #: [id number] additional_comment: Cb rojascr VBG Base Excess 1.9 mmol/L [facility] Comment:METER #: [id number] additional_comment: Cb rojascr VBG HCO3 27(H) 22 - 26 mmol/L [facility] Comment:METER #: [id number] additional_comment: Cb rojascr O2 Sat, Femi 66.0 % [facility] Comment:METER #: [id number] additional_comment: Cb rojascr 05/13/2025 1:07 PM EST 05/13/2025 1:14 PM EST us Generic External Data Provider LAB BLOOD ORDERAB LES Final Result Performing Organization Address City/State/[facility] Co de Phone Number [facility] [address] [place] [phone] * XR Chest 2 Views (05/13/2025 1:05 PM EST) Anatomical Region Laterality Modality Chest Radiographic Marcela ging 05/13/2025 1:05 PM EST Narrative 05/13/2025 1:18 PM EST [address] [address] XRay Report Signed Patient: Radha Rios MR#: [id number] : 1975 Acct:[id number] Age/Sex: 50 / F ADM Date: 05/13/25 Loc: .ED Attending Dr: Ordering Physician: Sarai Vu Date of Service: 05/13/25 Procedure(s): XR chest 2V Accession Number(s): [id number] cc: Sarai Vu; Estefania Hurley MD Reason for Exam: weakness EXAMINATION: XR CHEST CLINICAL INFORMATION: weakness COMPARISON: None available. TECHNIQUE: 2 views of the chest were obtained. FINDINGS: No significant abnormality is noted involving the heart, lungs, mediastinum, bony thorax or soft tissues. XR/XR chest 2V IMPRESSION: No acute disease. Electronically signed by: Demar Gray MD 05/13/2025 01:15 PM EST RP Dictated By: Demar Gray MD Signed By: <Electronically signed by Demar Gray MD in OV> 05/13/251314 DD/ 04 TD/TT: 05/13/251309 Cat Sitter: Procedure Note Donotuseinterpreter, Image - 05/13/[address] [address] XRay Report Signed Patient: Sherrill Rios#: [id number] : 1975Acct:[id number] Age/Sex: 50 / FADM Date: 05/13/25 Loc: .ED Attending Dr: Ordering Physician: Sarai Vu Date of Service: 05/13/25 Procedure(s): XR chest 2V Accession Number(s): [id number] cc: Sarai Vu; Estefania Hurley MD Reason for Exam: weakness EXAMINATION: XR CHEST CLINICAL INFORMATION: weakness COMPARISON: None available. TECHNIQUE: 2 views of the chest were obtained. FINDINGS: No significant abnormality is noted involving the heart, lungs, mediastinum, bony thorax or soft tissues. XR/XR chest 2V IMPRESSION: No acute disease. Electronically signed by: Demar Gray MD 05/13/2025 01:15 PM EST RP Dictated By: Demar Gray MD Signed By: <Electronically signed by Demar Gray MD in OV> 05/13/251314 DD/ 04 TD/TT: 05/13/250 Cat Sitter: [facility] External Provider IMG XR PROCEDURES Edited Result - Final * Influenza A B2 ID NOW (Fuller) (05/13/2025 1:00 PM EST) IDNOW SERIAL# [id number] [facility] Influenza A Negative Negative [facility] Influenza B2 Negative Negative [facility] Influenza A B2 Note See Note [facility] Comment:The Fuller ID NOW In fluenza A B2 test is used for thequalitative detection of influenza A and B from patientswith signs and symptoms of respiratory infection.Negative results do not preclude influenza virus infectionand should not be used as the sole basis for diagnosis,treatment or other patient management decisions.There is a risk of false negative results due to thepresence of variants in the viral targets of the assay, lowlevels of virus in the specimen and co- infection withRespiratory Syncytial Virus. 05/13/2025 1:00 PM EST 05/13/2025 1:07 PM EST us Generic External Data Provider LAB MICROBIOLOGY - GENERAL ORDERABLES Final Result [facility] [address] [place] [phone] * COVID-19 ID NOW (FULLER) (05/13/2025 1:00 PM EST) IDNOW SERIAL# [id number] [facility] COVID-19 TEST Negative Negative [facility] COVID-19 NOTE See Note [facility] Comment: Results are for the identification of SARS-CoV2 RNA. TheSARS-CoV2 RNA is generally detectable in respiratory samplesduring the acute phase of infection. Positive results areindicative of the presence of SARS-CoV-2 RNA; clinicalcorrelation with patient history and other diagnosticinformation is necessary to determine patient infectionstatus. Positive results do not rule out bacterial infectionor co- infection with other viruses.Testing facilities within the [facility] and itsterritories are required to report all positive results tothe appropriate public health authorities.Negative results should be treated as presumptive and, ifinconsistent with clinical signs and symptoms or necessaryfor patient management, should be tested with differentauthorized or cleared molecular tests. Negative results donot preclude SARS-CoV2 RNA infection and should not be usedas the sole basis for patient management decisions. Negativeresults should be considered in the context of a patient'srecent exposures, history and the presence of clinical signsand symptoms consistent with COVID-19.This test has been authorized by the FDA under an EmergencyUse Authorization (EUA) for use by authorized laboratories.Testing performed on the [place] ID NOW utilizing NAAT. 05/13/2025 1:00 PM EST 05/13/2025 1:07 PM EST Generic External Data Provider LAB MOLECULAR SKYLER GNOSTICS ORDERABLES Final Result Performing Organization Address [facility] Phone Number [facility] [address] [place] [phone] * High Sensitivity Troponin I (05/13/2025 1:00 PM EST) TROPONIN I HIGH SENSITIVITY <2.7 <3.5 - 17.0 ng/L [facility] Comment:The Fuller high sens itivity Troponin-I results should beused in conjunction with other diagnostic information suchas ECG, clinical observations and information, and patientsymptoms to aid in the diagnosis of VT. 05/13/2025 1:00 PM EST 05/13/2025 1:07 PM EST Generic External Data Provider LAB BLOOD ORDERAB LES Final Result Performing Organization Address [facility] Phone [facility] [address] [place] [phone] * (ABNORMAL) Beta-Hydroxybutyrate (05/13/2025 1:00 PM EST) Beta-Hydroxybu tyrate 0.38(H) 0.02 - 0.27 mmol/L [facility] 05/13/2025 1:00 PM EST 05/13/2025 1:07 PM EST Generic External Data Provider LAB BLOOD ORDERAB LES Final Result Performing Organization Address [facility]/State/ZIP Co de Phone Number [facility] [address] [place] [address] [phone] * CBC auto differential (05/13/2025 1:00 PM EST) White Blood Count 5.7 4.8 - 10.8 X10*3/uL [facility] Red Blood Count 4.67 4.20 - 5.50 X10*6/uL [facility] Hemoglobin 13.1 12.0 - 16.0 g/dl [facility] Hematocrit 39.9 37.0 - 47.0 % [facility] Mean Corpuscular Volume 85.4 80.0 - 98.0 fL [facility] Mean Corpuscular Hemoglobin 28.1 27.0 - 33.0 pg [facility] Mean Corpuscular HGB Conc 32.8 31.0 - 35.0 g/dl [facility] Red Cell Distribution Width 12.5 11.0 - 16.0 % [facility] Platelet Count 296 160 - 400 X10*3/uL [facility] Mean Platelet Volume 10.7 9.4 - 12.3 fL [facility] Neutrophils Percent Auto 53.5 45 - 73 % [facility] Imm Gran Pct Auto 0.2 0.0 - 0.4 % [facility] Lymphocytes Percent Auto 34.9 20 - 40 % [facility] Monocytes Percent Auto 8.4 2 - 11 % [facility] Eosinophils Percent Auto 1.6 0 - 4 % [facility] Basophils Percent Auto 1.4 0 - 2 % [facility] NRBC Pct Auto 0.0 0.0 - 0.2 /100WBC [facility] Neutrophils Absolute Auto 3.1 2.0 - 8.3 x10*3/uL [facility] Imm Gran Abs Auto 0.01 0.00 - 0.03 X10*3/uL [facility] Lymphocytes Absolute Auto 2.0 1.2 - 4.9 X10*3/uL [facility] Monocytes Absolute Auto 0.5 0.1 - 1.2 X10*3/uL [facility] Eosinophils Absolute Auto 0.1 0.0 - 0.4 X10*3/uL [facility] Basophils Absolute Auto 0.1 0.0 - 0.2 X10*3/uL [facility] NRBC Abs Auto 0.000 0.0 - 0.012 X10*3/uL [facility] 05/13/2025 1:00 PM EST 05/13/2025 1:07 PM EST Generic External Data Provider LAB BLOOD ORDERAB LES Final Result Performing Organization Address [facility]/ZIP Co de Phone Number [facility] [address] [place] [phone] * Magnesium (05/13/2025 1:00 PM EST) Pathologist [facility] Magnesium 2.0 1.6 - 2.6 mg/dL [facility] 05/13/2025 1:00 PM EST 05/13/2025 1:07 PM EST Generic External Data Provider LAB BLOOD ORDERAB LES Final Result Performing Organization Address [facility] Co de Phone Number [facility] [address] [place] [phone] * (ABNORMAL) Comprehensive Metabolic Panel (05/13/2025 1:00 PM EST) Pathologist [facility] Sodium 137 135 - 145 mmol/L [facility] Potassium 3.6 3.3 - 5.1 mmol/L [facility] Chloride 100 96 - 108 mmol/L [facility] Carbon Dioxide 27 22 - 29 mmol/L [facility] Anion Gap 14 12 - 20 [facility] Urea Nitrogen (BUN) 16 9 - 16 mg/dL [facility] Creatinine, Serum 1.20 0.5 - 1.4 mg/dL [facility] Creatinine Clr Calc Pharmacy 62.0 [facility] Comment:Provided height and weight: 160.02 cm,94.5 kg.eGFR (calculated from the MDRD study equation) and eCrCl(calculated from the Cockcroft-Gault equation) are based ondifferent parameters and may not yield comparable results.If eCrCl result is absurd, please check patient'sheight/weight. Estimated Glomerular Filt Rate 48 [facility] Comment:Chronic Kidney Disea se: Estimated GFR < 60 mL/min/1.19c4Vnwqpa Kidney Disease: Estimated GFR < 15 mL/min/1.73m2 Glucose 516(HH) 60 - 115 mg/dL [facility] Comment:Critical value for t est(s): GLUR Results called to and readback by: OMEGA Person calling: CIRCOD Date: 05/13/25Time: 1340 Calcium 9.4 8.4 - 10.2 mg/dL [facility] Bilirubin, Total 0.4 0.0 - 1.0 mg/dL [facility] Aspartate Amino Transferase 26 5 - 31 U/L [facility] Alanine Aminotransferase 33(H) 0 - 31 U/L [facility] Total Protein 8.1(H) 6.5 - 8.0 g/dL [facility] Albumin Level 4.8 3.5 - 5.0 g/dL [facility] Alkaline Phosphatase 144(H) 39 - 117 U/L [facility] 05/13/2025 1:00 PM EST 05/13/2025 1:07 PM EST us Generic External Data Provider LAB BLOOD ORDERAB LES Final Result [facility] [address] [place] [phone] * ECG 12 lead (05/13/2025 12:53 PM EST) Narrative Velia Gordon MD - 05/13/2025 12:53 PM EST NSR at [address] No ST/T abnormalities. No ischemic changes us Velia Gordon MD ECG ORDERABLES Final Re [...] POCT Hgb A1c (05/13/2025 12:18 PM EST) [facility] Hemoglobin A1C 13.0(A) 4.0 - 5.7 % QC Media Lot # [id number] Lot# Expiration Date Blood 05/13/2025 12:1 8 PM EST Result [facility] Velia Gordon MD POINT OF CARE TEST ENTER /EDIT ORDERABLES Final Result * (ABNORMAL) POCT Glucose (05/13/2025 12:18 PM EST) Pathologist [facility] Glucose Blood, POC 500(A) 60 - 200 mg/dL Comment:[facility] QC Media Lot # [id number] Lot# Expiration Date Blood Capillary blood specimen / Unknown 05/13/2025 12:18 PM EST Velia Gordon MD POINT OF CARE TEST ENTER /EDIT ORDERABLES Final Result * Cologuard?? colon cancer screening (09/19/2023 1:00 PM EDT) Pathologist [facility] Cologuard Result Negative Negative 09/23/19 24 4:12 AM EDT [facility] (CLIA #:[id number]) Comment: NEGATIVE TEST RESULT. A negative Cologuard result indicates a low likelihood that a colorectal cancer (CRC) or advanced adenoma (adenomatous polyps with more advanced pre-malignant features) is present. The chance that a person with a negative Cologuard test has a colorectal cancer is less than 1 in 1500 (negative predictive value >99.9%) or has an advanced adenoma is less than 5.3% (negative predictive value 94.7%). These data are based on a prospective cross-sectional study of 10,000 individuals at average risk for colorectal cancer who were screened with both Cologuard and colonoscopy. (Samanta Gregorio et al, N Engl J Med 2014;370(14):0758-2517) The normal value (reference range) for this assay is negative. COLOGUARD RE-SCREENING RECOMMENDATION: Periodic colorectal cancer screening is an important part of preventive healthcare for asymptomatic individuals at average risk for colorectal cancer. Following a negative Cologuard result, the [place] Cancer Society and U.S. Multi-Society Task Force screening guidelines recommend a Cologuard re-screening interval of 3 years. References: [place] [employer] Guideline for Colorectal Cancer Screening: https://www.cancer.org/cancer/rhpbq-gmwtrr-orxhji/lmicvphox-scqdckmfb-dvbgomw/ac s-rec ommendations.html.; Allan DK, Miguel CR, Delia WinstonK, Colorectal Cancer Screening: Recommendations for Physicians and Patients from the U.S. Multi-Society Task Force on Colorectal Cancer Screening , Am J Gastroenterology 2017; 112:9133-0395. TEST DESCRIPTION: Composite algorithmic analysis of stool DNA-biomarkers with hemoglobin immunoassay. Quantitative values of individual biomarkers are not reportable and are not associated with individual biomarker result reference ranges. Cologuard is intended for colorectal cancer screening of adults of either sex, 45 years or older, who are at average-risk for colorectal cancer (CRC). Cologuard has been approved for use by the U.S. FDA. The performance of Cologuard was established in a cross sectional study of average-risk adults aged 50-84. Cologuard performance in patients ages 45 to 49 years was estimated by sub-group analysis of near-age groups. Colonoscopies performed for a positive result may find as the most clinically significant lesion: colorectal cancer [4.0%], advanced adenoma (including sessile serrated polyps greater than or equal to 1cm diameter) [20%] or non- advanced adenoma [31%]; or no colorectal neoplasia [45%]. These estimates are derived from a prospective cross-sectional screening study of 10,000 individuals at average risk for colorectal cancer who were screened with both Cologuard and colonoscopy. (Samanta Mitchell al, N Engl J Med 2014;370(14):9353-7854.) Cologuard may produce a false negative or false positive result (no colorectal cancer or precancerous polyp present at colonoscopy follow up). A negative Cologuard test result does not guarantee the absence of CRC or advanced adenoma (pre-cancer). The current Cologuard screening interval is every 3 years. ([place] [employer] and U.S. Multi-Society Task Force). Cologuard performance data in a 10,000 patient pivotal study using colonoscopy as the reference method can be accessed at the following location: www.Phone.com/results. Additional description of the Cologuard test process, warnings and precautions can be found at www.Jamba!rd.com. Stool specimen (specimen) Rectal contents / Unknown 09/19/2023 1:00 PM EDT 09/20/2023 1:50 PM EDT Estefania Hurley MD LAB MOLECULAR DIAGNOSTICS ORD ERABLES Final Result [facility] (CLIA #:[id number]) [place] [address], * BI Mammogram Screening Tomosynthesis Bilateral (09/13/2023 3:10 PM EST) Anatomical Region Laterality Modality Breast Bilateral Mammography 09/13/2023 3:10 PM EST Narrative 09/28/2023 9:47 AM EDT [facility] [address] [place], [place] [address] Mammography Report Signed Patient: Radha Rios MR#: [id number] : 1975 Acct:[id number] Age/Sex: 48 / F ADM Date: 09/13/23 Loc: [facility] Attending Dr: Estefania Hurley MD Ordering Physician: Estefania Hurley MD Results: 1Nega tive Date of Service: 09/13/23 Follow Up: 1 Year From Orig inal Mammogram Procedure(s): MM tomosynthesis screening BI Accession Number(s): [id number] cc: Estefania Hurley MD EXAMINATION: MM SCREENING DIGITAL BREAST TOMOSYNTHESIS, BILATERAL CLINICAL INFORMATION: Screening. Asymptomatic. COMPARISON: Mammography: None. Baseline exam. TECHNIQUE: Digital breast tomosynthesis is performed in both the craniocaudal and mediolateral oblique views along with computer-aided detection (CAD). Synthesized 2D images are generated from the tomosynthesis. FINDINGS: There are scattered areas of fibroglandular density (ACR BI-RADS breast composition Category b). There are no suspicious masses, suspicious grouped calcifications, or areas of architectural distortion in either breast. The parenchymal pattern is stable from prior exams. MM/MM tomosynthesis screening BI IMPRESSION: No mammographic evidence of malignancy. ASSESSMENT: BI-RADS BI-RADS 1 - Negative RECOMMENDATION: Routine annual mammography screening. 1 year F/U This examination should not preclude the clinical evaluation of a suspicious palpable abnormality. This patient's information was entered into a reminder system with a target due date for their next mammogram. Dictated By: Brendan Thompson MD Signed By: <Electronically signed by Brendan Thompson MD in OV> 09/28/23 0943 DD/ 1510 TD/TT: Cat Sitter: Procedure Note Donotuseinterpreter, Image - 09/28/2023 [facility] [address] [place] [address] Mammography Report Signed Patient: Marika RiosR#: [id number] : 1975Acct:[id number] Age/Sex: 48 / FADM Date: 09/13/23 Loc: [facility] Attending Dr: Estefania Hurley MD Ordering Physician: Estefania Hurley MDResults: 1Nega tive Date of Service: 09/13/23Follow Up: 1 Year From [facility]a Mammogram Procedure(s): MM tomosynthesis screening BI Accession Number(s): [id number] cc: Estefania Hurley MD EXAMINATION: MM SCREENING DIGITAL BREAST TOMOSYNTHESIS, BILATERAL CLINICAL INFORMATION: Screening. Asymptomatic. COMPARISON: Mammography: None. Baseline exam. TECHNIQUE: Digital breast tomosynthesis is performed in both the craniocaudal and mediolateral oblique views along with computer-aided detection (CAD). Synthesized 2D images are generated from the tomosynthesis. FINDINGS: There are scattered areas of fibroglandular density (ACR BI-RADS breast composition Category b). There are no suspicious masses, suspicious grouped calcifications, or areas of architectural distortion in either breast. The parenchymal pattern is stable from prior exams. MM/MM tomosynthesis screening BI IMPRESSION: No mammographic evidence of malignancy. ASSESSMENT: BI-RADS BI-RADS 1 - Negative RECOMMENDATION: Routine annual mammography screening. 1 year F/U This examination should not preclude the clinical evaluation of a suspicious palpable abnormality. This patient's information was entered into a reminder system with a target due date for their next mammogram. Dictated By: Brendan Thompson MD Signed By: <Electronically signed by Brendan Thompson MD in OV> 09/28/23 0943 DD/ 1510 TD/TT: Cat Sitter: Estefania Hurley MD [facility] [place]EDURES Final Resul t * HPV mRNA E6/E7 w/Reflex to HPV Genotypes 16, 18/45 (09/09/2023 8:30 AM EST) HPV nRNA E6/E7 Not Detected Not Detected [facility] Comment:Methodology: Transcr iption-Mediated AmplificationThis assay detects E6/E7 viral messenger RNA (mRNA) from 14high-risk HPV types (16,18,31,33,35,39,45,51,52,56,58,59,66,68).Cervical sources are required for HPV testing.If a vaginal source from a patient who has had atotal hysterectomy with removal of cervix wassubmitted, please contact the testing laboratoryfor alternative testing options.For additional information, please refer tohttp://education.[employer]/faq/DJP366c3(This link if provided for information/educational purposes only.)THIS TEST WAS PERFORMED AT:[address] [place] [phone] WARREN MD HPV mRNA E6/E7 TNP [facility] HPV 16 RNA TNP [facility] HPV 18/45 RNA TNP [facility] 09/09/2023 8:30 AM EST 09/13/2023 7:30 AM EST us Estefania Hurley MD LAB CYTOLOGY ORDERABLES Final Result [facility] [address] [place] [phone] * Pap Smear (09/09/2023 8:30 AM EST) Swab Cervix uteri structure / Unknown 09/09/2023 8:30 AM EST 09/13/2023 7:30 AM EST Narrative [facility] - 09/21/2023 5:48 PM EDT ----- ------- Name: Radha Rios Age/Sex: 48/F : 1975 Unit#: [id number] Attend Dr: Estefania Hurley MD Re09/09/23 Status: DEP [facility] ----- ------- SPEC : [id number] RECD: 09/13/23 STATUS: ALEKSANDER BABIN NUM: [id number] LISSETH: 09/09/[address]: Estefania Hurley MD ENTERED: 09/13/23 SP TYPE: Pap Smr OT DR: ORDERED: Pap Smear, PAP path review Interpretation General Category: Negative for intraepithelial lesion/malignancy. Adequacy: Endocervical component present. Interpretation: Reactive squamous and glandular cellular changes. Actinomyces present. HPV mRNA E6/E7: Not Detected This assay detects E6/E7 viral messenger RNA (mRNA) from 14 high-risk HPV types (16, 18, 31, 33, 35, 39, 45, 51, 52, 56, 58, 59, 66, 68) HPV testing performed by [facility], [place], [place]. See reference laboratory portion of the EMR for entire report. Clinical Information LMP: IUD Previous PAP test: Unknown date/findings Material Received ThinPrep-Cervical ----- ------- Signed (signature on file) Angelica Ellington 09/21/23 1748 ----- ------- END OF REPORT Estefania Hurley MD LAB CYTOLOGY ORDERABLES Final Result Performing Organization Address [facility]/ZIP Co de Phone Number [facility] [address] [place] [phone] * Hepatitis C Antibody with Reflex to HCV, RNA, Quantitative, Real-Time PCR (09/06/2023 8:09 AM EST) Hepatitis C Antibody Nonreactive Nonreactive [facility] Comment:Antibodies to HCV no t detected; does not exclude early acuteHCV infection. Blood Venous blood specimen / Unknown 09/06/2023 8:09 AM EST 09/06/2023 2:12 PM EST Estefania Hurley MD LAB BLOOD ORDERABLES Final Re sult Performing Organization Address [facility] Co de Phone Number [facility] [address] [place] [phone] * HIV-1/2 Antigen and Antibodies, Fourth Generation, with Reflexes (09/06/2023 8:09 AM EST) HIV AB/AG Nonreactive Nonreactive [facility] Comment:HIV-1 p24 Ag and/or HIV-1/HIV-2 Ab not detected.A test result that is nonreactive does not exclude thepossibility of exposure to or infection with HIV-1 and/orHIV-2. Nonreactive results in this assay for individualswith prior exposure to HIV-1 and/or HIV-2 may be due toantigen and antibody levels that are below the limit ofdetection of this assay.The [employer] Agility HIV Ag/Ab Combo assay result andsupplemental assay results should be interpreted inconjunction with the patient's clinical presentation,history and other laboratory results. If the results areinconsistent with clinical evidence, additional testing issuggested to confirm the result. Blood Venous blood specimen / Unknown 09/06/2023 8:09 AM EST 09/06/2023 2:12 PM EST us Estefania Hurley MD LAB BLOOD ORDERABLES Final Re sult Performing Organization Address [facility] Co de Phone Number [facility] [address] [place] [phone] [phone] * Lipid Panel, Standard (09/06/2023 8:09 AM EST) Triglycerides 140 <150 mg/dL [facility] Comment:Desirable Triglyceri de: less than 150 mg/dLBorderline High Triglyceride 150-199 mg/dLHigh Triglyceride: 200-499 mg/dLVery High Triglyceride: greater than or equal to 5OO mg/dL Cholesterol 174 <200 mg/dL [facility] Comment:Desirable Cholestero l: less than 200 mg/dLBorderline High Cholesterol: 200-239 mg/dLHigh Cholesterol: greater than 239 mg/dL LDL Cholesterol Calculated 91 <100 mg/dL [facility] Comment:Desirable LDL: less than 100 mg/dLNear Optimal/Above Optimal LDL: 110- 129 mg/dLBorderline High LDL: 130-159 mg/dLHigh LDL: 160-189 mg/dLVery High LDL: greater than or equal to 190 mg/dL HDL Cholesterol 55 >40 mg/dL [facility] Comment:Desirable HDL: great er than 40 mg/dL Note: This HDL assay may give artificially low results in patients with liver disease. Blood Venous blood specimen / Unknown 09/06/2023 8:09 AM EST 09/06/2023 2:12 PM EST us Estefania Hurley MD LAB BLOOD ORDERABLES Final Re sult Performing Organization Address City/[facility]/ZIP Co de Phone Number [facility] [address] [place] [address] [phone] from Last 3 Months or Most Recently Relevant to Health Maintenance Insurance [facility] Care Teams Oracle Specialist Relationship Specialty Start Date End Date Estefania Hurley MD [address] [place] [phone] PCP - General Family Medicine 08/04/23
--- OUTSIDE RECORDS SUMMARY | 2025-05-13 18:43 | XMS_ITS | Encounter Summary ---
Author Organization [employer] Address [address] [place] [address] [address] [place] [address] Care Team Providers Care Structural Ironworker Name Role Phone Estefania Hurley MD Primary Care Provider [phone] Reason for Visit * Reason Onset Date Comments New Patient 04/21/2023 Encounter Details Date Type Department Care Team (Late st Contact Info) Description 04/21/2023 Telephone [facility] [address] [place] [phone] Maurice Joaquin MD [address] [place] [address] New Patient Social History Tobacco Use Types Packs/Day Years Used Date Smoking Tobacco: Never Assessed Comments Unknown Sex and Gender Information Value Date Recorded Sex Assigned at Female 06/09/2023 3:27 PM EST Legal Sex Female 4:14 PM EDT Gender Identity Female 06/09/2023 3:37 PM EST Sexual Orientation Straight 06/09/2023 3: 37 PM EST documented as of this encounter Miscellaneous Notes * Telephone Encounter - Norma Martinez - 04/21/2023 4:17 PM EDT Pt has been transfer over to wait list for [employer]. EFFECTIVE SINCE 04/21/2023 documented in this encounter Plan of Treatment Upcoming Encounters Date Type Department Care Team (Late st Contact Info) Description 05/27/2025 3:45 PM EST Office Visit [facility] [address] [place] [address] Estefania Hurley MD [address] [place] [address] 06/13/2025 2:00 PM EST Office Visit [facility] [address] [place] [address] Estefania Hurley MD [address] [place] [address] documented as of this encounter Visit Diagnoses Not on filedocumented in this encounter Care Teams Structural Ironworker Relationship Specialty Start Date End Date Estefania Hurley MD [address] [place] [phone] PCP - General Family Medicine 08/04/23 documented as of this encounter
--- OUTSIDE RECORDS SUMMARY | 2025-05-13 18:43 | XMS_ITS | Encounter Summary ---
Author Organization [employer] Address [address] [facility] 7 [place] [address] Care Team Providers Care Java Developer Consultant Name Role Phone Estefania Hurley MD Primary Care Provider [phone] Encounter Details Date Type Department Care Team (Late st Contact Info) Description 05/13/2025 Orders Only GENERIC EXTERNAL DATA DEPARTMENT Provider, Generic External Data Social History Tobacco Use Types Packs/Day Years [...] Upcoming Encounters Date Type Department Care Team ([facility] st Contact Info) Description 05/27/2025 3:45 PM EST Office Visit [facility] [address] [place] [address] Estefania Hurley MD [address] [place] [address] 06/13/2025 2:00 PM EST Office Visit [facility] [address] [place] [address] Estefania Hurley MD [address] [place] [address] documented as of this encounter Procedures Procedure [...] 2 VIEWS Routine 05/13/2025 1:05 PM EST INFLUENZA A B2 ID NOW (FULLER) Routine 05/13/2025 1:00 PM EST COVID-19 ID NOW (FULLER) Routine 05/13/2025 1:00 PM EST HIGH SENSITIVITY TROPONIN I Routine 05/13/2025 1:00 PM EST BETA-HYDROXYBUTYRATE Routine 05/13/2025 1:00 PM EST CBC WITH AUTO DIFFERENTIAL Routine 05/13/2025 1:00 PM EST MAGNESIUM Routine 05/13/2025 1:00 PM EST COMPREHENSIVE METABOLIC PANEL Routine 05/13/2025 1:00 PM EST documented in this encounter Results * (ABNORMAL) Glucose, Whole Blood (05/13/2025 3:49 PM EST) Glucose, Whole Blood 365(HH) 60 - 115 mg/dL [facility] Comment:METER #: [id number] 05/13/2025 3:49 PM EST 05/13/2025 3:52 PM EST Generic External Data Provider LAB BLOOD ORDERAB LES Final Result Performing Organization Address City/[facility]/ZIP Co de Phone Number [facility] [address] [place] [phone] * (ABNORMAL) Glucose, Whole Blood (05/13/2025 2:47 PM EST) Glucose, Whole Blood 394(HH) 60 - 115 mg/dL [facility] Comment:METER #: [id number] 05/13/2025 2:47 PM EST 05/13/2025 2:51 PM EST Generic External Data Provider LAB BLOOD ORDERAB LES Final Result Performing Organization Address City/[facility]/ZIP Co de Phone Number [facility] [address] [place] [address] [phone] * CT Head w/o Contrast (05/13/2025 1:43 PM EST) Anatomical Region Laterality Modality Head, Neck Computed Tomogra phy 05/13/2025 1:43 PM EST Narrative 05/13/2025 2:03 PM EST [address] [address] [address] Scan Report Signed Patient: Radha Rios MR#: [id number] : 1975 Acct:[id number] Age/Sex: 50 / F ADM Date: 05/13/25 Loc: HO.ED Attending Dr: Ordering Physician: Roxie Molina DO Date of Service: 05/13/25 Procedure(s): CT head/brain wo IV con Accession Number(s): [id number] cc: Roxie Molina DO; Estefania Hurley MD Report Number: [id number]: Total DLP = 680.00 mGy-cm Reason for [...] by: Demar Gray MD 05/13/2025 02:00 PM [facility] Dictated By: Demar Gray MD Signed By: <Electronically signed by Demar Gray MD in OV> 05/13/25 1400 DD/ 1343 TD/TT: 05/13/25 1352 Radio Program Director: Procedure Note Donotuseinterpreter, Image - 05/13/[address] [address] [address] Scan Report Signed Patient: Sherrill Rios#: [id number] : 1975Acct:[id number] Age/Sex: 50 / FADM Date: 05/13/25 Loc: HO.ED Attending Dr: Ordering Physician: Roxie Molina DO Date of Service: 05/13/25 Procedure(s): CT head/brain wo IV con Accession Number(s): [id number] cc: Roxie Molina DO; Estefania Hurley MD Report Number: [id number]: Total DLP = 680.00 mGy-cm Reason for [...] by: Demar Gray MD 05/13/2025 02:00 PM [facility] Dictated By: Demar Gray MD Signed By: <Electronically signed by Demar Gray MD in OV> 05/13/25 1400 DD/ 1343 TD/TT: 05/13/25 1352 Radio Program Director: [facility] External Provider IMG CT PROCEDURES Edited Result - Final * (ABNORMAL) Glucose, Whole Blood (05/13/2025 1:22 PM EST) Glucose, Whole Blood 470(HH) 60 - 115 mg/dL [facility] Comment:METER #: [id number] 05/13/2025 1:22 PM EST 05/13/2025 1:26 PM EST Generic External Data Provider LAB BLOOD ORDERAB LES Final Result Performing Organization Address [facility] Co de Phone Number [facility] [address] [place] [phone] * (ABNORMAL) VENOUS BLOOD GAS (05/13/2025 1:07 PM EST) VBG pH 7.40 7.32 - 7.43 [facility] Comment:METER #: [id number] additional_comment: Cb rojascr VBG PCO2 43 mmHg [facility] Comment:METER #: [id number] additional_comment: Cb rojascr VBG PO2 43 mmHg [facility] Comment:METER #: [id number] additional_comment: Cb rojascr VBG Base Excess 1.9 mmol/L [facility] Comment:METER #: [id number] additional_comment: Cb rojascr VBG HCO3 27(H) 22 - 26 mmol/L [facility] Comment:METER #: [id number] additional_comment: Cb rojascr O2 Sat, Femi 66.0 % [facility] Comment:METER #: [id number] additional_comment: Cb roinnascr 05/13/2025 1:07 PM EST 05/13/2025 1:14 PM EST Generic External Data Provider LAB BLOOD ORDERAB LES Final Result Performing Organization Address [facility]/ZIP Co de Phone Number [facility] [address] [place] [phone] * XR Chest 2 Views (05/13/2025 1:05 PM EST) Anatomical Region Laterality Modality Chest Radiographic Marcela ging 05/13/2025 1:05 PM EST Narrative 05/13/2025 1:18 PM EST [address] [address] XRay Report Signed Patient: Radha Rios MR#: [id number] : 1975 Acct:[id number] Age/Sex: 50 / F ADM Date: 05/13/25 Loc: HO.ED Attending Dr: Ordering Physician: Sarai Vu Date of Service: 05/13/25 Procedure(s): XR chest 2V Accession Number(s): [id number] cc: Sarai Vu; Estefania Hurley MD Reason for Exam: weakness EXAMINATION: XR CHEST CLINICAL INFORMATION: weakness COMPARISON: None available. TECHNIQUE: 2 views of the chest were obtained. FINDINGS: No significant abnormality is noted involving the heart, lungs, mediastinum, bony thorax or soft tissues. XR/XR chest 2V IMPRESSION: No acute disease. Electronically signed by: Demar Gray MD 05/13/2025 01:15 PM EST Dictated By: Demar Gray MD Signed By: <Electronically signed by Demar Gray MD in OV> 05/13/25 1315 DD/ 1305 TD/TT: 05/13/25 1310 Radio Program Director: Procedure Note Donotuseinterpreter, Image - 05/13/[address] [address] XRay Report Signed Patient: Marika RiosR#: [id number] : 1975Acct:[id number] Age/Sex: 50 / FADM Date: 05/13/25 Loc: HO.ED Attending Dr: Ordering Physician: Sarai Vu Date of Service: 05/13/25 Procedure(s): XR chest 2V Accession Number(s): [id number] cc: Sarai Vu; Estefania Hurley MD Reason [...] by Demar Gray MD in OV> 05/13/25 1315 DD/ 1305 TD/TT: 05/13/25 1310 Radio Program Director: [facility] External Provider IMG XR PROCEDURES Edited Result - Final * Magnesium (05/13/2025 1:00 PM EST) Magnesium 2.0 1.6 - 2.6 mg/dL [facility] 05/13/2025 1:00 PM EST 05/13/2025 1:07 PM EST Generic External Data Provider LAB BLOOD ORDERAB LES Final Result [facility] [address] [place] [phone] * (ABNORMAL) Comprehensive Metabolic Panel (05/13/2025 1:00 PM EST) Sodium 137 135 - 145 mmol/L [facility] Potassium 3.6 3.3 - 5.1 mmol/L [facility] Chloride 100 96 - 108 mmol/L [facility] Carbon Dioxide 27 22 - 29 mmol/L [facility] Anion Gap 14 12 - 20 [facility] Urea Nitrogen (BUN) 16 9 - 16 mg/dL [facility] Creatinine, Serum 1.20 0.5 - 1.4 mg/dL [facility] Creatinine Clr Calc Pharmacy 62.0 [facility] Comment:Provided height and weight: 160.02 cm,94.5 kg.eGFR (calculated from the MDRD study equation) and eCrCl(calculated from the Cockcroft-Gault equation) are based ondifferent parameters and may not yield comparable results.If eCrCl result is absurd, please check patient'sheight/weight. Estimated Glomerular Filt Rate 48 [facility] Comment:Chronic Kidney Disea se: Estimated GFR < 60 mL/min/1.43l6Xjowkn Kidney Disease: Estimated GFR < 15 mL/min/1.73m2 Glucose 516(HH) 60 - 115 mg/dL [facility] Comment:Critical value for t est(s): GLUR Results called to and readback by: OMEGA Person calling: CIRCOD Date: 05/13/25Time: 1340 Calcium 9.4 8.4 - 10.2 mg/dL [facility] Bilirubin, Total 0.4 0.0 - 1.0 mg/dL [facility] Aspartate Amino Transferase 26 5 - 31 U/L [facility] Alanine Aminotransferase 33(H) 0 - 31 U/L [facility] Total Protein 8.1(H) 6.5 - 8.0 g/dL [facility] Albumin Level 4.8 3.5 - 5.0 g/dL [facility] Alkaline Phosphatase 144(H) 39 - 117 U/L [facility] 05/13/2025 1:00 PM EST 05/13/2025 1:07 PM EST us Generic External Data Provider LAB BLOOD ORDERAB LES Final Result [facility] [address] [place] [phone] * Influenza A B2 ID NOW (Fuller) (05/13/2025 1:00 PM EST) IDNOW SERIAL# [id number] [facility] Influenza A Negative Negative [facility] Influenza B2 Negative Negative [facility] Influenza A B2 Note See Note [facility] Comment:The Fuller ID NOW In [...] PM EST Generic External Data Provider LAB MICROBIOLOGY - GENERAL ORDERABLES Final Result Performing Organization Address [facility] Co de Phone Number [facility] [address] [place] [phone] * High Sensitivity Troponin I (05/13/2025 1:00 PM EST) [facility] TROPONIN I HIGH SENSITIVITY <2.7 <3.5 - 17.0 ng/L [facility] Comment:The Fuller high sens itivity Troponin-I results should beused in conjunction with other diagnostic information suchas ECG, clinical observations and information, and patientsymptoms to aid in the diagnosis of [place]. 05/13/2025 1:00 PM EST 05/13/2025 1:07 PM EST Generic External Data Provider LAB BLOOD ORDERAB LES Final Result Performing Organization Address [facility] Co de Phone Number [facility] [address] [place] [phone] * COVID-19 ID NOW (FULLER) (05/13/2025 1:00 PM EST) [facility] IDNOW SERIAL# [id number] [facility] COVID-19 TEST Negative Negative [facility] COVID-19 NOTE See Note [facility] Comment: Results are for the identification of SARS-CoV2 RNA. TheSARS-CoV2 RNA is generally detectable in respiratory samplesduring the acute phase of infection. Positive results areindicative of the presence of SARS-CoV-2 RNA; clinicalcorrelation with patient history and other diagnosticinformation is necessary to determine patient infectionstatus. Positive results do not rule out bacterial infectionor co- infection with other viruses.Testing facilities within the [facility] and itsterritories are required to report all [...] use by authorized laboratories.Testing performed on the [employer] ID NOW utilizing NAAT. 05/13/2025 1:00 PM EST 05/13/2025 1:07 PM EST Generic External Data Provider LAB MOLECULAR SKYLER GNOSTICS ORDERABLES Final Result Performing Organization Address City/[facility]/ZIP Co de Phone Number [facility] [address] [place] [phone] * (ABNORMAL) Beta-Hydroxybutyrate (05/13/2025 1:00 PM EST) Beta-Hydroxybu tyrate 0.38(H) 0.02 - 0.27 mmol/L [facility] 05/13/2025 1:00 PM EST 05/13/2025 1:07 PM EST [employer] External Data Provider LAB BLOOD ORDERAB LES Final Result Performing Organization Address City/[facility]/ZIP Co de Phone Number [facility] [address] [place] [phone] * CBC auto differential (05/13/2025 1:00 PM EST) White Blood Count 5.7 4.8 - 10.8 X10*3/uL [facility] Red Blood Count 4.67 4.20 - 5.50 X10*6/uL [facility] Hemoglobin 13.1 12.0 - 16.0 g/dl [facility] Hematocrit 39.9 37.0 - 47.0 % [facility] Mean Corpuscular Volume 85.4 80.0 - 98.0 fL [facility] Mean Corpuscular Hemoglobin 28.1 27.0 - 33.0 pg [facility] Mean Corpuscular HGB Conc 32.8 31.0 - 35.0 g/dl [facility] Red Cell Distribution Width 12.5 11.0 - 16.0 % [facility] Platelet Count 296 160 - 400 X10*3/uL [facility] Mean Platelet Volume 10.7 9.4 - 12.3 fL [facility] Neutrophils Percent Auto 53.5 45 - 73 % [facility] Imm Gran Pct Auto 0.2 0.0 - 0.4 % [facility] Lymphocytes Percent Auto 34.9 20 - 40 % [facility] Monocytes Percent Auto 8.4 2 - 11 % [facility] Eosinophils Percent Auto 1.6 0 - 4 % [facility] Basophils Percent Auto 1.4 0 - 2 % [facility] NRBC Pct Auto 0.0 0.0 - 0.2 /100WBC [facility] Neutrophils Absolute Auto 3.1 2.0 - 8.3 x10*3/uL [facility] Imm Gran Abs Auto 0.01 0.00 - 0.03 X10*3/uL [facility] Lymphocytes Absolute Auto 2.0 1.2 - 4.9 X10*3/uL [facility] Monocytes Absolute Auto 0.5 0.1 - 1.2 X10*3/uL [facility] Eosinophils Absolute Auto 0.1 0.0 - 0.4 X10*3/uL [facility] Basophils Absolute Auto 0.1 0.0 - 0.2 X10*3/uL [facility] NRBC Abs Auto 0.000 0.0 - 0.012 X10*3/uL [facility] 05/13/2025 1:00 PM EST 05/13/2025 1:07 PM EST us Generic External Data Provider LAB BLOOD ORDERAB LES Final Result [facility] [address] [place] [phone] documented in this encounter Visit Diagnoses Not on filedocumented in this encounter Care Teams Java Developer Consultant Relationship Specialty Start Date End Date Estefania Hurley MD [address] [place] [phone] PCP - General Family Medicine 08/04/23 documented as of this encounter
[2025-05-14 00:25] LABS: Bacterial Vaginosis PCR NEGATIVE (Negative); Candida Group PCR DETECTED (Not Detect); Candida glab krusei PCR NOT DETECTED (Not Detect); Trichomonas vaginalis PCR NOT DETECTED (Not Detect)
== END 2025-05-13 18:40 | disposition home or self-care (01) ==
LOC: HO.LNP 18:39
PROVIDERS: Physician Assistant Medical; Emergency Provider Emergency Medicine; PCP Family Medicine; Visit Provider Internal Medicine
DX: E11.9 Type 2 diabetes mellitus without complications (principal); N76.1 Subacute and chronic vaginitis; R53.1 Weakness; H53.9 Unspecified visual disturbance; Z11.52 Encounter for screening for COVID-19
CPT/HCPCS: 70450; 71046; 80053; 81515; 82010; 82803; 82947; 83735; 84484; 85025; 87502; 87635; 93005; 99285; J7120

== ENCOUNTER → 2025-05-13 12:32 | Outpatient (BNV) | payer OTHER, SELFPAY | PROVIDERS: Emergency Provider Emergency Medicine; PCP Family Medicine; Visit Provider Radiology Diagnostic Radiology | DX: H53.9 Unspecified visual disturbance (principal); R53.1 Weakness | CPT/HCPCS: 70450; 71046 ==

== ENCOUNTER → 2025-05-13 12:32 | Outpatient (BNV) | payer OTHER, SELFPAY | PROVIDERS: Emergency Provider Emergency Medicine; PCP Family Medicine; Visit Provider Internal Medicine Cardiovascular Disease | DX: R53.1 Weakness (principal); Z13.6 Encounter for screening for cardiovascular disorders | CPT/HCPCS: 93010 ==

== ENCOUNTER 2025-05-17 12:13 | Emergency (ER) | payer OTHER, SELFPAY ==
--- OUTSIDE RECORDS SUMMARY | 2025-05-13 11:00 | XMS_ITS | Encounter Summary ---
Author Organization [employer] Address [address] [place] [address] Care Team Providers Care Lighthouse Keeper Name Role Phone Estefania Hurley MD Primary Care Provider [phone] Reason for Visit * Reason Comments Urinary Frequency Vaginal Itching Encounter Details Date Type Department Care Team ([facility] st Contact Info) Description 05/13/2025 11:00 AM EST Office Visit [facility] [address] [place], [place] [id number] Velia Gordon MD [address] [place] [address] Type 2 diabetes mellitus with hyperglycemia, without [...] your housing situation today? I have sherri sing 07/27/[address] you li [...] 11:17 AM EST documented in this encounter Progress Notes * Velia Gordon MD - 05/13/2025 11:00 AM EST SUBJECTIVE: Radha Avalos is a 50 y.o. year old female who presents for Walk In Center/uti. Denies recent illness, injury, or hospitalization. Frequent urination Frequent urination began on April. Denies burning or pain with urination. Reports increased thirst and drinking large amounts of water. Urination is frequent, especially in the evening and at night. Genital itching and rash Noticed a mild rash and itching in the vaginal area approximately two weeks prior to the visit. Rash is not intense and has been managed with hydrocortisone cream, which improved symptoms. No vaginaldischarge reported. Rash is located externally. Blurred vision Blurred vision started on Saturday, May 10, 2025, and has been present daily since then. One brief episode of blurred vision occurred on Monday, May 05, 2025, which resolved within minutes. Uses reading glasses. Denies persistent visual impairment. Acute Concerns: Social History Social History Narrative Not on file Problem List[1] Family History[2] Review of Systems Constitutional: Negative for chills, fatigue and fever. HENT: Negative for congestion, ear pain, nosebleeds, rhinorrhea, sinus pressure, sore throat and trouble swallowing. Eyes: Positive for visual disturbance. Negative for pain and discharge. Respiratory: Negative for cough, chest tightness and shortness of breath. Cardiovascular: Negative for chest pain, palpitations and leg swelling. Gastrointestinal: Negative for abdominal pain, blood in stool, constipation, diarrhea and nausea. Endocrine: Negative for polydipsia and polyuria. Genitourinary: Positive for frequency, urgency and vaginal pain (itchiness). Negative for dysuria, genital sores, pelvic pain and vaginal discharge. Musculoskeletal: Negative for back pain and neck pain. Skin: Positive for rash. Allergic/Immunologic: Negative for environmental allergies. Neurological: Negative for dizziness, seizures, weakness, light-headedness and headaches. Hematological: Negative for adenopathy. Psychiatric/Behavioral: Negative for agitation, behavioral problems, self-injury and suicidal ideas. OBJECTIVE: Vitals: 05/13/25 1117 05/13/25 1216 BP: (!) 149/106 (!) 148/100 BP Location: Left arm Right arm Patient Position: Sitting Sitting BP Cuff Size: Adult Large adult Pulse: 105 Resp: 16 Temp: 98.2 ??F (36.8 ??C) TempSrc: Temporal SpO2: 100% Weight: 207 lb (93.9 kg) Height: 5' 3 (1.6 m) Physical Exam HENT: Right Ear: Tympanic membrane and ear canal normal. Left Ear: Tympanic membrane and ear canal normal. Mouth/Throat: Mouth: Mucous membranes are moist. Pharynx: No oropharyngeal exudate or posterior oropharyngeal erythema. Eyes: Pupils: Pupils are equal, round, and reactive to light. Cardiovascular: Rate and Rhythm: Regular rhythm. Pulses: Normal pulses. Heart sounds: Normal heart sounds. No murmur heard. Pulmonary: Breath sounds: Normal breath sounds. Abdominal: General: Bowel sounds are normal. Palpations: Abdomen is soft. Tenderness: There is no abdominal tenderness. Musculoskeletal: General: Normal range of motion. Cervical back: Neck supple. Skin: General: Skin is warm. Neurological: General: No focal deficit present. Mental Status: She is alert and oriented to person, place, and time. Psychiatric: Mood and Affect: Mood normal. Behavior: Behavior normal. Component Date Value Ref Range Status Color, UA 05/13/2025 Yellow Final Clarity, UA 05/13/2025 Clear Final Glucose, UA 05/13/2025 3+ 500+++ Final 500 mg/dL Bilirubin, UA 05/13/2025 Negative Final Ketones, UA 05/13/2025 Positive Final 15mg/dL Spec Grav, UA 05/13/2025 1.020 Final Blood, UA 05/13/2025 Positive (A) Negative, None Detected Final small pH, UA 05/13/2025 6.0 Final Protein, UA 05/13/2025 3+ 500+++ Final >=300 mg/dL Urobilinogen, UA 05/13/2025 0.2 Final Leukocytes, UA 05/13/2025 Negative Negative, Rare, Trace Final Nitrite, UA 05/13/2025 Negative Negative, None Detected Final Appearance, UA 05/13/2025 yellow Final QC Media Lot # 05/13/2025 [id number] Final Lot# Expiration Date 05/13/2025 [id number] Final Glucose Blood, POC 05/13/2025 500 (A) 60 - 200 mg/dL Final [facility] QC Media Lot # 05/13/2025 [id number] Final Lot# Expiration Date 05/13/2025 302,[id number] Final Hemoglobin A1C 05/13/2025 13.0 (A) 4.0 - 5.7 % Final QC Media Lot # 05/13/2025 [id number] Final Lot# Expiration Date 05/13/2025 [id number] Final Encounter Date: 05/13/25 ECG 12 lead Narrative NSR at [address] bpm[address] Normal axis. No ST/T abnormalities. No ischemic changes Problem List Items Addressed This Visit Type 2 diabetes mellitus with hyperglycemia, without long-term current use of insulin ([facility]) - Primary - Newly diagnosed diabetes mellitus with significant [...] both agree to go toED. I called [facility] ED and spoke with Gale (chief lending officer) for a soft sign out. - Patient to follow-up with PCP upon discharge Blurry vision, bilateral - Blurry vision likely secondary to hyperglycemia associated with newly diagnosed diabetes mellitus. - Recommended evaluation and management in the emergency room for acute hyperglycemia. Relevant Orders POCT Glucose (Completed) POCT Hgb A1c (Completed) Subacute vaginitis - It's likely due to candidiasis as a result of new onset of DM, - Vaginal swab ordered for further evaluation. - Diflucan x 1 dose Relevant Orders POCT Urinalysis (Completed) Bacterial Vaginosis Hypertensive disorder Uncontrolled, likely related to new onset of DM. Patient to go to ED, her EKG is within normal limits. She will continue with same BP medications for now and follow-up with PCP upon discharge. Relevant Orders ECG 12 lead (Completed) This note was drafted using Ambient (AI) technology. The patient/patient's guardian has been informed and has consented to the use of this technology: Yes Follow Up: Medications Ordered Prior to Encounter[3] [1] Patient Active Problem List Diagnosis Hypertensive disorder Palpitations Encounter for health-related screening Class 2 severe obesity with serious comorbidity and body mass index (BMI) of 36.0 to 36.9 in adult Encounter for removal and reinsertion of intrauterine contraceptive device (IUD) Rhinosinusitis Trigger finger, left middle finger Blurry vision, bilateral Subacute vaginitis Type 2 diabetes mellitus with hyperglycemia, without long-term current use of insulin (HCC) [2] No family history on file. [3] Current Outpatient Medications on File Prior to Visit Medication Sig Dispense Refill amLODIPine (Norvasc) 10 MG tablet TAKE 1 TABLET(10 MG) BY MOUTH DAILY 90 tablet 1 fexofenadine (Caitlin) 180 MG tablet Take 1 tablet (180 mg) by mouth Once per day. 30 tablet 0 fluticasone (Flonase) 50 MCG/ACT nasal spray Administer 1 spray into each nostril 2 times daily. Shake gently. Before first use, prime pump. After use, clean tip and replace cap. 16 g 2 lisinopril 20 MG tablet TAKE 1 TABLET(20 MG) BY MOUTH DAILY 90 tablet 1 metoprolol succinate XL (Toprol-XL) 50 MG 24 hr tablet TAKE 1 TABLET(50 MG) BY MOUTH DAILY. DO NOT CRUSH OR CHEW 90 tablet 1 oxymetazoline (Afrin Nasal [place]) 0.05 % nasal spray Administer 2 sprays into each nostril every 12(twelve) hours if needed for congestion for up to 2 days. Do not use for more than 3 days. 30 mL 0 No current facility-administered medications on file prior to visit. documented in this encounter Miscellaneous Notes * [...] significant hyperglycemia (blood glucose >500 mg/dL/ fgstk [facility] and A1c of 13), currently symptomatic and [...] both agree to go toED. I called [facility] ED and spoke with Gale (chief lending officer) for a soft sign out. - Patient [...] Care Team (Late st Contact Info) Description 05/20/2025 1:40 PM EST Office Visit [facility] [address] [place] [address] 05/27/2025 3:45 PM EST Office Visit [facility] [address] [place] [address] Estefania Hurley MD [address] [place] [address] 06/13/2025 2:00 PM EST Office Visit [facility] [address] [place] [address] Estefania Hurley MD [address] [place] [address] Scheduled Orders Name Type Priority Associated Diagnoses [...] Media Lot # [id number] Lot# Expiration Date [id number] Blood 05/13/2025 12:1 8 PM EST Velia Gordon MD POINT OF CARE TEST ENTER /EDIT ORDERABLES Final Result * (ABNORMAL) POCT Glucose (05/13/2025 12:18 PM EST) Glucose Blood, POC 500(A) 60 - 200 mg/dL Comment:[facility] QC Media Lot # [id number] Lot# [...] type documented in this encounter Care Teams Lighthouse Keeper Relationship Specialty Start Date End Date Estefania Hurley MD [address] [place] [address] PCP - General Family Medicine 08/04/23 documented as of this encounter
--- NOTE | ~2025-05-17 | XR_ITS ---
EXAMINATION: XR CHEST CLINICAL INFORMATION: sob COMPARISON: None available. TECHNIQUE: Frontal view of the chest was obtained. FINDINGS: Numerous leads overlie the chest. The cardiac, hilar, and mediastinal contours are normal. The lungs are clear bilaterally. No pneumothorax or effusion. No focal osseous or soft tissue abnormality. XR/XR chest 1V IMPRESSION: No active pulmonary disease. Electronically signed by: Brendan Thompson MD 05/17/2025 02:44 PM JOSEPH
--- OUTSIDE RECORDS SUMMARY | 2025-05-17 10:30 | XMS_ITS | Encounter Summary ---
Author Organization [employer] Address [address] [place] [address] Care Team Providers Care Land Planner Name Role Phone Estefania Hurley MD Primary Care Provider [phone] Encounter Details Date Type Department Care Team (Latest Contact Info) Description 05/17/2025 10:30 AM EST Clinical Support [facility] [address] [place] [address] Sara Patel RN Hyperglycemia due to diabetes mellitus (HCC) [E11.65] Social History Tobacco Use Types Packs/Day Years [...] PM EST documented as of this encounter Progress Notes * Sara Patel RN - 05/17/2025 10:30 AM EST Nurse visit triage patient for elevated blood sugar. This morning blood sugar elevated at 424. Pt stated she took 10 unit of Lantus last night and her metformin this morning. Stated she is not tolerating the metformin (c/o abdominal discomfort). She is currently complain of blurry vision and weakness. (Patient also had elevated blood sugar on May.13, sent to [facility] to be evaluated, BS >500, sent to [facility], where she was worked up and started on 10 units of Lantus and metformin.) Blood sugar checked again during visit and it came back >500. Patient sent to [facility] (daughter driving) for elevated BS. Patient and daughter agreed with the plan. RN called expect to [facility]. Patient milana has FU appointment scheduled for , which patient verbally stated she will keep. documented in this encounter Plan of Treatment Upcoming Encounters Date Type Department Care Team (Late st Contact Info) Description 05/20/2025 1:40 PM EST Office Visit [facility] [address] [place] [address] 05/27/2025 3:45 PM EST Office Visit [facility] [address] [place] [address] Estefania Hurley MD [address] [place] [address] 06/13/2025 2:00 PM EST Office Visit [facility] [address] [place] [address] Estefania Hurley MD [address] [place] [address] documented as of this encounter Procedures Procedure Name Priority Date/Time Associated Diagnosis Comments POCT GLUCOSE Routine 05/17/2025 12:40 PM EST Hyperglycemia due to diabetes mellitus (HCC) [E11.65] documented in this encounter Results * (ABNORMAL) POCT Glucose (05/17/2025 12:40 PM EST) Glucose Blood, POC 500(A) 60 - 200 mg/dL Comment:MAchine only reads u p to 500 Blood Capillary blood specimen / Unknown 05/17/2025 12:40 PM EST us Estefania Hurley MD POINT OF CARE TEST ENTER/EDIT ORDERABLES Final Result documented in this encounter Visit Diagnoses Diagnosis Hyperglycemia due to diabetes mellitus (HCC) [E11.65] documented in this encounter Care Teams Land Planner Relationship Specialty Start Date End Date Estefania Hurley MD [address] [place] [phone] PCP - General Family Medicine 08/04/23 documented as of this encounter
[2025-05-17 12:21] VITALS: BP 135/77; PULSE 89; RESP 16; TEMP 37; O2SAT 99; BMI 37.4
--- NOTE | 2025-05-17 12:21 | ED.GENADULT ---
HPI - General Adult General Chief complaint: Recheck/Abnormal Lab/Rx Stated complaint: high blood sugar Time Seen by Provider: 05/17/25 13:26 Related Data Previous Rx's ?Medication ?Instructions ?Recorded cetirizine 10 mg tablet (Zyrtec) 10 mg PO DAILY 30 days #30 tabs 05/04/23 metoprolol succinate 50 mg 50 mg PO DAILY 30 days #30 tabs 05/04/23 tablet,extended release 24 hr lisinopril 20 mg tablet 20 mg PO DAILY 30 days #30 tabs 05/05/23 amlodipine 10 mg tablet 10 mg PO DAILY 30 days #30 tabs 08/05/23 alcohol swabs 1 pad topical QIDACHS #100 ea 05/13/25 blood sugar diagnostic (FreeStyle #100 ea 05/13/25 Lite Strips) blood-glucose meter (FreeStyle #1 ea 05/13/25 Lite Meter kit) insulin glargine 100 unit/mL (3 10 unit (0.1 mL) subcut DAILY #15 05/13/25 mL) subcutaneous pen (Lantus mL Solostar U-100 Insulin) lancets 28 gauge (FreeStyle #100 ea 05/13/25 Lancets) metformin 500 mg tablet 500 mg PO BID #60 tabs 05/13/25 pen needle, diabetic 32 gauge x #100 ea 05/13/25 1/4 Allergies Allergy/AdvReac Type Severity Reaction Status Date / Time Seasonal Allergies Allergy Intermediate Runny Nose Verified 05/17/25 12:24 [facility] Past Medical History Medical History Back disorder High blood pressure Sinusitis History of nephrolithotomy with removal of calculi Brain aneurysm Surgical History S/P clamping of cerebral aneurysm Family History Family History Mother High blood pressure Diabetes Family/Other High blood pressure Social History Social History Housing: House Patient Tobacco Use Status: Never used Tobacco e-Cigarette/Vaping Use: Never Used service: No Current occupational status: unemployed Cognitive needs: No Hearing needs: No Vision needs: Yes Physical Exam ED Vital Signs: Vital Signs - 24 hr 05/17/25 12:21 05/17/25 15:42 05/17/25 16:17 Temperature 98.6 F 96.9 F Pulse Rate 89 78 78 Respiratory Rate 16 16 16 Blood Pressure 135/77 132/88 132/88 Pulse Oximetry 99 96 96 Oxygen Delivery Method Room Air Room Air Room Air BMI result Body Mass Index 37.4 Course Course Course Narrative: This is an RME: Additional HPI, ROS, PE not included below will be deferred to primary provider. 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 Reports that she took lantus and metformin and sugars remain to be >500. Blurred vision, chest pain, generalized weakness, SOB. +urinary frequency, improved over the last several days. Plan: labs, ekg, cxr, further er eval needed Medications Administered Discontinued Medications Generic Name Dose Route Start Last Admin Trade Name Freq PRN Reason Stop Dose Admin Sodium Chloride 1,000 mls @ 999 mls/hr 05/17/25 13:45 05/17/25 15:09 Ns IV 05/17/25 14:45 Infused .Q1H1M FRANK Infusion Insulin Human Regular 5 unit 05/17/25 13:37 05/17/25 14:09 Insulin Regular, Human 100 Unit/Ml 10 Ml Vial IVPUSH 05/17/25 13:38 5 unit ONCE ONE Administration Medical Decision Making Lab Data 05/17/25 12:41 05/17/25 12:41 Labs: Lab Results 05/17/25 05/17/25 05/17/25 Range/Units 12:27 12:39 12:41 WBC 5.8 (4.8-10.8) X10*3/uL RBC 4.55 (4.20-5.50) X10*6/uL Hgb 12.8 (12.0-16.0) g/dl Hct 38.7 (37.0-47.0) % MCV 85.1 (80.0-98.0) fL MCH 28.1 (27.0-33.0) pg MCHC 33.1 (31.0-35.0) g/dl RDW 12.6 (11.0-16.0) % Plt Count 280 (160-400) X10*3/uL MPV 11.0 (9.4-12.3) fL Immature Gran % (Auto) 0.2 (0.0-0.4) % Neut % (Auto) 52.2 (45-73) % Lymph % (Auto) 36.3 (20-40) % [place] % (Auto) 9.2 (2-11) % Eos % (Auto) 1.2 (0-4) % Baso % (Auto) 0.9 (0-2) % Lymph # (Auto) 2.1 (1.2-4.9) X10*3/uL [place] # (Auto) 0.5 (0.1-1.2) X10*3/uL Eos # (Auto) 0.1 (0.0-0.4) X10*3/uL Baso # (Auto) 0.1 (0.0-0.2) X10*3/uL Abs Immat Gran (auto) 0.01 (0.00-0.03) X10*3/uL Absolute Neuts (auto) 3.0 (2.0-8.3) x10*3/uL Absolute Nucleated RBC 0.000 (0.0-0.012) X10*3/uL Nucleated RBC % (auto) 0.0 (0.0-0.2) /100WBC VBG pH (7.32-7.43) VBG pCO2 mmHg VBG pO2 mmHg VBG HCO3 (22-26) mmol/L VBG O2 Saturation % VBG Base Excess mmol/L Sodium 130 L (135-145) mmol/L Potassium 4.1 (3.3-5.1) mmol/L Chloride 97 (96-108) mmol/L Carbon Dioxide 24 (22-29) mmol/L Anion Gap 13 (12-20) BUN 18 H (9-16) mg/dL Creatinine 1.18 (0.5-1.4) mg/dL Estim Creat Clear Calc 63.5 Estimated GFR 49 POC Glucose 436 H* (60-115) mg/dL Random Glucose 465 H* (60-115) mg/dL Calcium 9.3 (8.4-10.2) mg/dL Magnesium 1.6 (1.6-2.6) mg/dL Total Bilirubin 0.3 (0.0-1.0) mg/dL Direct Bilirubin 0.1 (0.0-0.5) mg/dL AST 39 H (5-31) U/L ALT 41 H (0-31) U/L Alkaline Phosphatase 122 H (39-117) U/L Troponin I High Sens < 2.7 (<3.5-17.0) ng/L Total Protein 7.7 (6.5-8.0) g/dL Albumin 4.5 (3.5-5.0) g/dL Beta-Hydroxybutyrate 0.27 (0.02-0.27) mmol/L Urine Color Urine Appearance Urine pH (5.0-9.0) Ur Specific [place] (1.005-1.025) Urine Protein (Neg-Trace) mg/dL Urine Glucose (UA) (Negative) mg/dL Urine Ketones (Negative) mg/dL Urine Blood (Negative) Urine Nitrite (Negative) Ur Leukocyte Esterase (Negative) Urine RBC (0-2) /HPF Urine WBC (0-5) /HPF Ur Squamous Epith Cells (0-2) /HPF Urine Bacteria (None Seen) Hyaline Casts (0-2) /LPF Influenza Type A (PCR) NEGATIVE (Negative) Influenza Type B (PCR) NEGATIVE (Negative) RSV RNA Qual (PCR) NEGATIVE (Negative) SARS-CoV-2 RNA (RT-PCR) NEGATIVE (Negative) 05/17/25 05/17/25 05/17/25 Range/Units 12:48 13:54 15:18 WBC (4.8-10.8) X10*3/uL RBC (4.20-5.50) X10*6/uL Hgb (12.0-16.0) g/dl Hct (37.0-47.0) % MCV (80.0-98.0) fL MCH (27.0-33.0) pg MCHC (31.0-35.0) g/dl RDW (11.0-16.0) % Plt Count (160-400) X10*3/uL MPV (9.4-12.3) fL Immature Gran % (Auto) (0.0-0.4) % Neut % (Auto) (45-73) % Lymph % (Auto) (20-40) % [place] % (Auto) (2-11) % Eos % (Auto) (0-4) % Baso % (Auto) (0-2) % Lymph # (Auto) (1.2-4.9) X10*3/uL [place] # (Auto) (0.1-1.2) X10*3/uL Eos # (Auto) (0.0-0.4) X10*3/uL Baso # (Auto) (0.0-0.2) X10*3/uL Abs Immat Gran (auto) (0.00-0.03) X10*3/uL Absolute Neuts (auto) (2.0-8.3) x10*3/uL Absolute Nucleated RBC (0.0-0.012) X10*3/uL Nucleated RBC % (auto) (0.0-0.2) /100WBC VBG pH 7.40 (7.32-7.43) VBG pCO2 38 mmHg VBG pO2 52 mmHg VBG HCO3 24 (22-26) mmol/L VBG O2 Saturation 79.0 % VBG Base Excess -0.1 mmol/L Sodium (135-145) mmol/L Potassium (3.3-5.1) mmol/L Chloride (96-108) mmol/L Carbon Dioxide (22-29) mmol/L Anion Gap (12-20) BUN (9-16) mg/dL Creatinine (0.5-1.4) mg/dL Estim Creat Clear Calc Estimated GFR POC Glucose 251 H (60-115) mg/dL Random Glucose (60-115) mg/dL Calcium (8.4-10.2) mg/dL Magnesium (1.6-2.6) mg/dL Total Bilirubin (0.0-1.0) mg/dL Direct Bilirubin (0.0-0.5) mg/dL AST (5-31) U/L ALT (0-31) U/L Alkaline Phosphatase (39-117) U/L Troponin I High Sens (<3.5-17.0) ng/L Total Protein (6.5-8.0) g/dL Albumin (3.5-5.0) g/dL Beta-Hydroxybutyrate (0.02-0.27) mmol/L Urine Color Yellow Urine Appearance Clear Urine pH 5.5 (5.0-9.0) Ur Specific [place] >= 1.030 H (1.005-1.025) Urine Protein Negative (Neg-Trace) mg/dL Urine Glucose (UA) >=1000 H (Negative) mg/dL Urine Ketones Trace (Negative) mg/dL Urine Blood Negative (Negative) Urine Nitrite Negative (Negative) Ur Leukocyte Esterase Negative (Negative) Urine RBC 0-2 (0-2) /HPF Urine WBC 0-5 (0-5) /HPF Ur Squamous Epith Cells 0-2 (0-2) /HPF Urine Bacteria None Seen (None Seen) Hyaline Casts 0-2 (0-2) /LPF Influenza Type A (PCR) (Negative) Influenza Type B (PCR) (Negative) RSV RNA Qual (PCR) (Negative) SARS-CoV-2 RNA (RT-PCR) (Negative) Discharge Plan Discharge Clinical Impression: Diabetes mellitus, new onset Patient Disposition: Home, Self-Care Instructions: How to Give an Insulin Injection (ED), Diabetes and Nutrition (ED), Type 2 Diabetes Management for Adults (ED) Prescriptions: No Action lisinopril 20 mg tablet 20 mg PO DAILY 30 Days Qty: 30 2RF amlodipine 10 mg tablet 10 mg PO DAILY 30 Days Qty: 30 3RF (DME) FreeStyle Lite Strips Strip Qty: 100 0RF Rx Instructions: Test four times a day or as directed. (DME) blood-glucose meter [FreeStyle Lite Meter] Kit Qty: 1 0RF Rx Instructions: As Directed alcohol swabs Pads, Medicated 1 pad TOPICAL QIDACHS Qty: 100 0RF Rx Instructions: Use four times a day or as directed. insulin glargine [Lantus Solostar U-100 Insulin] 100 unit/mL (3 mL) insulin pen 10 unit SUBCUT DAILY Qty: 15 0RF (DME) pen needle, diabetic 32 gauge x 1/4 needle Qty: 100 0RF Rx Instructions: Use four times a day or as directed. (DME) lancets [FreeStyle Lancets] 28 gauge misc Qty: 100 0RF Rx Instructions: Test four times a day or as directed. metformin 500 mg tablet 500 mg PO BID Qty: 60 2RF metoprolol succinate 50 mg tablet extended release 24 hr 50 mg PO DAILY 30 Days Qty: 30 3RF cetirizine [Zyrtec] 10 mg tablet 10 mg PO DAILY 30 Days Qty: 30 1RF Referrals: Estefania Hurley MD [Primary Care Provider, Medical] - 05/20/25 Interventions: ED Discharge Assessment Last Done: 05/17/25 16:17 Print Language: Cook Islander
--- NOTE | 2025-05-17 12:24 | ECG_ITS ---
Test Reason : CP Blood Pressure : */* mmHG Vent. Rate : 83 BPM Atrial Rate : 83 BPM P-R Int : 170 ms QRS Dur : 88 ms QT Int : 380 ms P-R-T Axes : 58 10 15 degrees QTcB Int : 446 ms Normal sinus rhythm Possible Left atrial enlargement Possible Anterior infarct , age undetermined Abnormal ECG When compared with ECG of 13-May-2025 13:16, No significant change was found Referred By: Naomi Ford Electronically Signed By: Constantino Joe
[2025-05-17 12:33] LABS: Glucose, Whole Blood 436 mg/dL (60-115)
[2025-05-17 12:48] LABS: MANUAL DIFF FLAG NO
[2025-05-17 12:50] LABS: Hematocrit 38.7 % (37.0-47.0); Hemoglobin 12.8 g/dl (12.0-16.0); Imm Gran Abs Auto 0.01 X10*3/uL (0.00-0.03); Imm Gran Pct Auto 0.2 % (0.0-0.4); Lymphocytes Absolute Auto 2.1 X10*3/uL (1.2-4.9); Mean Corpuscular HGB Conc 33.1 g/dl (31.0-35.0); Mean Corpuscular Hemoglobin 28.1 pg (27.0-33.0); Mean Corpuscular Volume 85.1 fL (80.0-98.0); NRBC Abs Auto 0.000 X10*3/uL (0.0-0.012); NRBC Pct Auto 0.0 /100WBC (0.0-0.2); Platelet Count 280 X10*3/uL (160-400); Red Blood Count 4.55 X10*6/uL (4.20-5.50); White Blood Count 5.8 X10*3/uL (4.8-10.8)
[2025-05-17 12:51] LABS: VBG HCO3 24 mmol/L (22-26); VBG O2 % Saturation 79.0 %
[2025-05-17 12:51] LABS: Venous Blood Gas Refer to POC result
[2025-05-17 13:09] LABS: Alanine Aminotransferase 41 U/L (0-31); Albumin Level 4.5 g/dL (3.5-5.0); Alkaline Phosphatase 122 U/L (39-117); Anion Gap 13 (12-20); Aspartate Amino Transferase 39 U/L (5-31); Blood Urea Nitrogen 18 mg/dL (9-16); Calcium 9.3 mg/dL (8.4-10.2); Carbon Dioxide 24 mmol/L (22-29); Chloride 97 mmol/L (96-108); Creatinine Clr Calc Pharmacy 63.5; Estimated Glomerular Filt Rate 49; Magnesium 1.6 mg/dL (1.6-2.6); Potassium 4.1 mmol/L (3.3-5.1); Sodium 130 mmol/L (135-145); Total Protein 7.7 g/dL (6.5-8.0)
[2025-05-17 13:12] LABS: Troponin-I High Sensitivity < 2.7 ng/L (<3.5-17.0)
[2025-05-17 13:29] LABS: Resp Syncy Virus RNA Qual PCR NEGATIVE (Negative); SARS COV2 PCR INHOUSE NEGATIVE (Negative)
--- NOTE | 2025-05-17 13:37 | ED_ITS ---
HPI - General Adult General Chief complaint: Recheck/Abnormal Lab/Rx Stated complaint: high blood sugar Time Seen by Provider: 05/17/25 13:26 History of Present Illness HPI narrative: Patient is a 50-year-old female with a history of diabetes. Patient was diagnosed on Tuesday. Started on metformin. Started on Lantus 10 units at night. Presented today with having generalized malaise weakness and her glucometer read high high. Patient denies any fever chills. No pain on urination. Positive slight cough. Patient is from home. Been compliant with her medication. However patient did ate some tangerine last night. Also ate some peaches this morning. On arrival patient's sugar was read as 430. Related Data Previous Rx's ?Medication ?Instructions ?Recorded cetirizine 10 mg tablet (Zyrtec) 10 mg PO DAILY 30 day s #30 tabs 05/04/23 metoprolol succinate 50 mg 50 mg PO DAILY 30 days #30 tabs 05/04/23 tablet,extended release 24 hr lisinopril 20 mg tablet 20 mg PO DAILY 30 days #30 t abs 05/05/23 amlodipine 10 mg tablet 10 mg PO DAILY 30 days #30 t abs 08/05/23 alcohol swabs 1 pad topical QIDACHS #100 e a 05/13/25 blood sugar diagnostic (FreeStyle #100 ea 05/13/25 Lite Strips) blood-glucose meter (FreeStyle #1 ea 05/13/25 Lite Meter kit) insulin glargine 100 unit/mL (3 10 unit (0.1 mL) subcu t DAILY #15 05/13/25 mL) subcutaneous pen (Lantus mL Solostar U-100 Insulin) lancets 28 gauge (FreeStyle #100 ea 05/13/25 Lancets) metformin 500 mg tablet 500 mg PO BID #60 tabs 05/13 pen needle, diabetic 32 gauge x #100 ea 05/13/25 1/4 Allergies Allergy/AdvReac Type Severity Reaction Status Date / Time Seasonal Allergies Allergy Intermediate Runny Nose Verified 05/17/25 12:24 Review of Systems 2 Review of Systems: No fever no chills no chest pain or abdominal pain no nausea no vomiting no systemic complaints. Yes all other systems are reviewed and are negative PMFSH Past Medical History Attestation statement: The following information was validated with the patient. Medical History Back disorder High blood pressure Sinusitis History of nephrolithotomy with removal of calculi Brain aneurysm Surgical History S/P clamping of cerebral aneurysm Family History Family History Mother High blood pressure Diabetes Family/Other High blood pressure Social History Social History Housing: House Patient Tobacco Use Status: Never used Tobacco Smoked in Last 30 Days: No e-Cigarette/Vaping Use: Never Used Advance Directives: No Advance Directives Information Provided: No service: No Current occupational status: unemployed Cognitive needs: No Hearing needs: No Vision needs: Yes Physical Exam ED Vital Signs: Vital Signs - 24 hr 05/17/25 12:21 05/17/25 15:42 Temperature 98.6 F Pulse Rate 89 78 Respiratory Rate 16 16 Blood Pressure 135/77 132/88 Pulse Oximetry 99 96 Oxygen Delivery Method Room Air Room Air BMI result Body Mass Index 37.4 Medications Administered Discontinued Medications Generic Name Dose Route Start Last Admin Trade Name Freq PRN Reason Stop Dose Admin Sodium Chloride 1,000 mls @ 999 mls/hr 05/17/25 13:45 05/17/25 15:09 Ns IV 05/17/25 14:45 Infused .Q1H1M FRANK Infusion Insulin Human Regular 5 unit 05/17/25 13:37 05/17/25 14:09 Insulin Regular, Human 100 Unit/Ml 10 Ml Vial IVPUSH 05/17/25 13:38 5 unit ONCE ONE Administration Medical Decision Making Medical Decision Making MDM Narrative: Patient's sugar is over 400 however patient's anion gap is normal bicarb is normal. There is no evidence for diabetic ketoacidosis. Patient is will be given a small dose of insulin some fluids. Explained to patient the need to follow a diabetic diet. Patient did try her best but did not know about the tangerine and peaches. Her beta hydroxybutyrate was normal there is no evidence for DKA patient's troponin is negative. My interpretation patient's EKG showed a sinus rhythm heart rate is 80 VA QRS QTC normal no acute ST segment elevation not consistent with ACS. Will recheck patient's sugar carefully. Currently in stable condition. Patient's VBG by my interpretation is normal. PH is 7.4 pCO2 is 38. Patient's sodium is 130 this is likely from a pseudo hyponatremia secondary to the hyperglycemia 436. Currently in stable condition. COVID flu RSV were all negative. Patient's sugars down to 251 no evidence for DKA will discharge patient home ask patient to monitor his sugar carefully. In stable condition. Differential Diagnosis Differential Diagnoses: The differential diagnosis associated with the presentation includes Hyperglycemia, DKA, electrolyte disturbance Admission/Observation Consideration of admission/observation: Escalation of care including admission/observation considered Lab Data MDM Lab Attestation statement: I reviewed the patient's lab results. 05/17/25 12:41 05/17/25 12:41 Labs: Lab Results 05/17/25 05/17/25 05/17/25 Range/Units 12:27 12:39 12:41 WBC 5.8 (4.8-10.8) X10*3/uL RBC 4.55 (4.20-5.50) X10*6/uL Hgb 12.8 (12.0-16.0) g/dl Hct 38.7 (37.0-47.0) % MCV 85.1 (80.0-98.0) fL MCH 28.1 (27.0-33.0) pg MCHC 33.1 (31.0-35.0) g/dl RDW 12.6 (11.0-16.0) % Plt Count 280 (160-400) X10*3/uL MPV 11.0 (9.4-12.3) fL Immature Gran % (Auto) 0.2 (0.0-0.4) % Neut % (Auto) 52.2 (45-73) % Lymph % (Auto) 36.3 (20-40) % [place] % (Auto) 9.2 (2-11) % Eos % (Auto) 1.2 (0-4) % Baso % (Auto) 0.9 (0-2) % Lymph # (Auto) 2.1 (1.2-4.9) X10*3/uL [place] # (Auto) 0.5 (0.1-1.2) X10*3/uL Eos # (Auto) 0.1 (0.0-0.4) X10*3/uL Baso # (Auto) 0.1 (0.0-0.2) X10*3/uL Abs Immat Gran (auto) 0.01 (0.00-0.03) X10*3/uL Absolute Neuts (auto) 3.0 (2.0-8.3) x10*3/uL Absolute Nucleated RBC 0.000 (0.0-0.012) X10*3/uL Nucleated RBC % (auto) 0.0 (0.0-0.2) /100WBC VBG pH (7.32-7.43) VBG pCO2 mmHg VBG pO2 mmHg VBG HCO3 (22-26) mmol/L VBG O2 Saturation % VBG Base Excess mmol/L Sodium 130 L (135-145) mmol/L Potassium 4.1 (3.3-5.1) mmol/L Chloride 97 (96-108) mmol/L Carbon Dioxide 24 (22-29) mmol/L Anion Gap 13 (12-20) BUN 18 H (9-16) mg/dL Creatinine 1.18 (0.5-1.4) mg/dL Estim Creat Clear Calc 63.5 Estimated GFR 49 POC Glucose 436 H* (60-115) mg/dL Random Glucose 465 H* (60-115) mg/dL Calcium 9.3 (8.4-10.2) mg/dL Magnesium 1.6 (1.6-2.6) mg/dL Total Bilirubin 0.3 (0.0-1.0) mg/dL Direct Bilirubin 0.1 (0.0-0.5) mg/dL AST 39 H (5-31) U/L ALT 41 H (0-31) U/L Alkaline Phosphatase 122 H (39-117) U/L Troponin I High Sens < 2.7 (<3.5-17.0) ng/L Total Protein 7.7 (6.5-8.0) g/dL Albumin 4.5 (3.5-5.0) g/dL Beta-Hydroxybutyrate 0.27 (0.02-0.27) mmol/L Urine Color Urine Appearance Urine pH (5.0-9.0) Ur Specific [place] (1.005-1.025) Urine Protein (Neg-Trace) mg/dL Urine Glucose (UA) (Negative) mg/dL Urine Ketones (Negative) mg/dL Urine Blood (Negative) Urine Nitrite (Negative) Ur Leukocyte Esterase (Negative) Urine RBC (0-2) /HPF Urine WBC (0-5) /HPF Ur Squamous Epith Cells (0-2) /HPF Urine Bacteria (None Seen) Hyaline Casts (0-2) /LPF Influenza Type A (PCR) NEGATIVE (Negative) Influenza Type B (PCR) NEGATIVE (Negative) RSV RNA Qual (PCR) NEGATIVE (Negative) SARS-CoV-2 RNA (RT-PCR) NEGATIVE (Negative) 05/17/25 05/17/25 05/17/25 Range/Units 12:48 13:54 15:18 WBC (4.8-10.8) X10*3/uL RBC (4.20-5.50) X10*6/uL Hgb (12.0-16.0) g/dl Hct (37.0-47.0) % MCV (80.0-98.0) fL MCH (27.0-33.0) pg MCHC (31.0-35.0) g/dl RDW (11.0-16.0) % Plt Count (160-400) X10*3/uL MPV (9.4-12.3) fL Immature Gran % (Auto) (0.0-0.4) % Neut % (Auto) (45-73) % Lymph % (Auto) (20-40) % [place] % (Auto) (2-11) % Eos % (Auto) (0-4) % Baso % (Auto) (0-2) % Lymph # (Auto) (1.2-4.9) X10*3/uL [place] # (Auto) (0.1-1.2) X10*3/uL Eos # (Auto) (0.0-0.4) X10*3/uL Baso # (Auto) (0.0-0.2) X10*3/uL Abs Immat Gran (auto) (0.00-0.03) X10*3/uL Absolute Neuts (auto) (2.0-8.3) x10*3/uL Absolute Nucleated RBC (0.0-0.012) X10*3/uL Nucleated RBC % (auto) (0.0-0.2) /100WBC VBG pH 7.40 (7.32-7.43) VBG pCO2 38 mmHg VBG pO2 52 mmHg VBG HCO3 24 (22-26) mmol/L VBG O2 Saturation 79.0 % VBG Base Excess -0.1 mmol/L Sodium (135-145) mmol/L Potassium (3.3-5.1) mmol/L Chloride (96-108) mmol/L Carbon Dioxide (22-29) mmol/L Anion Gap (12-20) BUN (9-16) mg/dL Creatinine (0.5-1.4) mg/dL Estim Creat Clear Calc Estimated GFR POC Glucose 251 H (60-115) mg/dL Random Glucose (60-115) mg/dL Calcium (8.4-10.2) mg/dL Magnesium (1.6-2.6) mg/dL Total Bilirubin (0.0-1.0) mg/dL Direct Bilirubin (0.0-0.5) mg/dL AST (5-31) U/L ALT (0-31) U/L Alkaline Phosphatase (39-117) U/L Troponin I High Sens (<3.5-17.0) ng/L Total Protein (6.5-8.0) g/dL Albumin (3.5-5.0) g/dL Beta-Hydroxybutyrate (0.02-0.27) mmol/L Urine Color Yellow Urine Appearance Clear Urine pH 5.5 (5.0-9.0) Ur Specific [place] >= 1.030 H (1.005-1.025) Urine Protein Negative (Neg-Trace) mg/dL Urine Glucose (UA) >=1000 H (Negative) mg/dL Urine Ketones Trace (Negative) mg/dL Urine Blood Negative (Negative) Urine Nitrite Negative (Negative) Ur Leukocyte Esterase Negative (Negative) Urine RBC 0-2 (0-2) /HPF Urine WBC 0-5 (0-5) /HPF Ur Squamous Epith Cells 0-2 (0-2) /HPF Urine Bacteria None Seen (None Seen) Hyaline Casts 0-2 (0-2) /LPF Influenza Type A (PCR) (Negative) Influenza Type B (PCR) (Negative) RSV RNA Qual (PCR) (Negative) SARS-CoV-2 RNA (RT-PCR) (Negative) Independent Interpretation I performed an independent interpretation of an: EKG (Sinus heart rate is 80 VA QRS QTC within normal limits is no acute ST segment elevation.) and Plain X-Ray (Chest x-ray negative for pneumonia pneumothorax) Radiology Impression Discussion of test interpretation with radiology: I have reviewed the radiologist's reading. Chronic Conditions Patient?s care impacted by: Diabetes Social Determinants Patient?s care significantly limited by Social Determinants of Health including: Problems related to primary support group Discharge Plan Discharge Clinical Impression: Diabetes mellitus, new onset Patient Disposition: Home, Self-Care Instructions: Diabetes and Nutrition (ED), How to Give an Insulin Injection (ED), Type 2 Diabetes Management for Adults (ED) Prescriptions: No Action lisinopril 20 mg tablet 20 mg PO DAILY 30 Days Qty: 30 2RF amlodipine 10 mg tablet 10 mg PO DAILY 30 Days Qty: 30 3RF (DME) FreeStyle Lite Strips Strip Qty: 100 0RF Rx Instructions: Test four times a day or as directed. (DME) blood-glucose meter [FreeStyle Lite Meter] Kit Qty: 1 0RF Rx Instructions: As Directed alcohol swabs Pads, Medicated 1 pad TOPICAL QIDACHS Qty: 100 0RF Rx Instructions: Use four times a day or as directed. insulin glargine [Lantus Solostar U-100 Insulin] 100 unit/mL (3 mL) insulin pen 10 unit SUBCUT DAILY Qty: 15 0RF (DME) pen needle, diabetic 32 gauge x 1/4 needle Qty: 100 0RF Rx Instructions: Use four times a day or as directed. (DME) lancets [FreeStyle Lancets] 28 gauge misc Qty: 100 0RF Rx Instructions: Test four times a day or as directed. metformin 500 mg tablet 500 mg PO BID Qty: 60 2RF metoprolol succinate 50 mg tablet extended release 24 hr 50 mg PO DAILY 30 Days Qty: 30 3RF cetirizine [Zyrtec] 10 mg tablet 10 mg PO DAILY 30 Days Qty: 30 1RF Referrals: Estefania Hurley MD [Primary Care Provider, Medical] - 05/20/25 Print Language: Icelandic
[2025-05-17 14:18] LABS: Appearance Urine Clear; Glucose Urine UA >=1000 mg/dL (Negative); PH 5.5 (5.0-9.0); Specific Gravity - Urine >= 1.030 (1.005-1.025); UMIC TRIGGER UACC YES
--- OUTSIDE RECORDS SUMMARY | 2025-05-17 15:11 | XMS_ITS | Encounter Summary ---
Author Organization [employer] Address [address] [facility] [address] [place] [address] Care Team Providers Care Franchise Specialist Name Role Phone Estefania Hurley MD Primary Care Provider [phone] Reason for Visit * Reason Onset Date Comments Med Refill 03/07/2025 Encounter Details Date Type Department Care Team ([facility] Contact Info) Description 03/07/2025 Telephone [facility] [address] [place] [address] Estefania Hurley MD [address] [place] [address] Med Refill Social History Tobacco Use Types [...] 1:53 PM EDT Medication was sent to [facility] #[id number] on 02/05/25 #90 with 1 refill patient can call pharmacy and transfer medication. Pharmacy also not listed. * Telephone Encounter - Cooper Fonseca - 03/07/2025 1:42 PM EDT TC from pt requesting medication refill. Medications needing refill : amLODIPine (Norvasc) 10 MG tablet To [place]: [place] [address] Pt is currently in [place] and will be returning at the end of March documented in this encounter Plan of Treatment Upcoming Encounters Date Type Department Care Team (Late st Contact Info) Description 05/20/2025 1:40 PM EST Office Visit [facility] [address] [place] [address] 05/27/2025 3:45 PM EST Office Visit [facility] [address] [place] [address] Estefania Hurley MD [address] [place] [address] 06/13/2025 2:00 PM EST Office Visit [facility] [address] [place] [address] Estefania Hurley MD [address] [place] [phone] documented as of this encounter Visit Diagnoses Not on filedocumented in this encounter Care Teams Franchise Specialist Relationship Specialty Start Date End Date Estefania Hurley MD [address] [place] [id number] PCP - General Family Medicine 08/04/23 documented as of this encounter
--- OUTSIDE RECORDS SUMMARY | 2025-05-17 15:11 | XMS_ITS | Encounter Summary ---
Author Organization [employer] Address [address] [facility] [address] [place] [address] Care Team Providers Care Sheet Metal Layout Mechanic Name Role Phone Estefania Hurley MD Primary Care Provider [phone] Encounter Details Date Type Department Care Team [...] Description 05/20/2025 1:40 PM EST Office Visit [facility] [address] [place] [address] 05/27/2025 3:45 PM EST Office Visit [facility] [address] [place] [address] Estefania Hurley MD [address] [place] [address] 06/13/2025 2:00 PM EST Office Visit [facility] [address] [place] [address] Estefania Hurley MD [address] [place] [address] documented as of this encounter Visit Diagnoses Not on filedocumented in this encounter Care Teams Sheet Metal Layout Mechanic Relationship Specialty Start Date End Date Estefania Hurley MD [address] [place] [id number] PCP - General Family Medicine 08/04/23 documented as of this encounter
--- OUTSIDE RECORDS SUMMARY | 2025-05-17 15:11 | XMS_ITS | Encounter Summary ---
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 [employer] Name Role Phone Estefania Hurley MD Primary Care Provider [phone] Encounter Details Date Type Department Care Team [...] Upcoming Encounters Date Type Department Care Team ([facility] st Contact Info) Description 05/20/2025 1:40 PM EST Office Visit [facility] [address] [place] [address] 05/27/2025 3:45 PM EST Office Visit [facility] [address] [place] [address] Estefania Hurley MD [address] [place] [address] 06/13/2025 2:00 PM EST Office Visit [facility] [address] [place] [address] Estefania Hurley MD [address] [place] [address] documented as of this encounter Procedures Procedure Name Priority Date/Time Associated Diagnosis Comments XR CHEST 1 VIEW Routine 05/17/2025 2:32 PM EST URINALYSIS, COMPLETE, WITH REFLEX TO CULTURE Routine 05/17/2025 1:54 PM EST VENOUS BLOOD GAS Routine 05/17/2025 12:4 8 PM EST HIGH SENSITIVITY TROPONIN I Routine 05/17/2025 12:41 PM EST BETA-HYDROXYBUTYRATE Routine 05/17/2025 12:41 PM EST CBC WITH AUTO DIFFERENTIAL Routine 05/17/2025 12:41 PM EST MAGNESIUM Routine 05/17/2025 12:41 PM EST HEPATIC FUNCTION PANEL Routine 12:41 PM EST BASIC METABOLIC PANEL Routine 05/17/2025 12:41 PM EST SARS COV2/INFLUENZA A/B AND RSV RNA QL NAAT Routine 05/17/2025 12:39 PM EST GLUCOSE, WHOLE BLOOD Routine 05/17/2025 12:27 PM EST GLUCOSE, WHOLE BLOOD Routine 05/13/2025 3:49 PM [...] METABOLIC PANEL Routine 05/13/2025 1:00 PM EST BACTERIAL VAGINOSIS PANEL Routine 05/13/2025 12:00 PM EST documented in this encounter Results * XR Chest 1 View (05/17/2025 2:32 PM EST) Anatomical Region Laterality Modality Chest Radiographic Marcela ging 05/17/2025 2:32 PM EST Narrative 05/17/2025 2:48 PM EST [address] [address] XRay Report Signed Patient: Radha Rios MR#: [id number] : 1975 Acct:[id number] Age/Sex: 50 / F ADM Date: 05/17/25 Loc: HO.ED Attending Dr: Ordering Physician: Maria Luz Sahni MD Date of Service: 05/17/25 Procedure(s): XR chest 1V Accession Number(s): [id number] cc: Maria Luz Sahni MD; Estefania Hurley MD Reason for Exam: sob EXAMINATION: XR CHEST CLINICAL INFORMATION: sob COMPARISON: None available. TECHNIQUE: Frontal view of the chest was obtained. FINDINGS: Numerous leads overlie the chest. The cardiac, hilar, and mediastinal contours are normal. The lungs are clear bilaterally. No pneumothorax or effusion. No focal osseous or soft tissue abnormality. XR/XR chest 1V IMPRESSION: No active pulmonary disease. Electronically signed by: Brendan Thompson MD 05/17/2025 02:44 PM EST Dictated By: Brendan Thompson MD Signed By: <Electronically signed by Brendan Thompson MD in OV> 05/17/25 1444 DD/ 1432 TD/TT: 05/17/25 1436 Water Treatment Plant Engineer: Procedure Note Donotuseinterpreter, Image - 05/17/[address] [address] XRay Report Signed Patient: Marika RiosR#: [id number] : 1975Acct:[id number] Age/Sex: 50 / FADM Date: 05/17/25 Loc: .ED Attending Dr: Ordering Physician: Maria Luz Sahni MD Date of Service: 05/17/25 Procedure(s): XR chest 1V Accession Number(s): [id number] cc: Maria Luz Sahni MD; Estefania Hurley MD Reason for Exam: sob EXAMINATION: XR CHEST CLINICAL INFORMATION: sob COMPARISON: None available. TECHNIQUE: Frontal view of the chest was obtained. FINDINGS: Numerous leads overlie the chest. The cardiac, hilar, and mediastinal contours are normal. The lungs are clear bilaterally. No pneumothorax or effusion. No focal osseous or soft tissue abnormality. XR/XR chest 1V IMPRESSION: No active pulmonary disease. Electronically signed by: Brendan Thompson MD 05/17/2025 02:44 PM EST Dictated By: Brendan Thompson MD Signed By: <Electronically signed by Brendan Thompson MD in OV> 05/17/25 1444 DD/ 1432 TD/TT: 05/17/25 1436 Water Treatment Plant Engineer: [facility] External Provider IMG XR PROCEDURES Final Result * (ABNORMAL) Urinalysis, Complete, with Reflex to Culture (05/17/2025 1:54 PM EST) Color Urine Yellow [facility] Appearance Urine Clear [facility] PH 5.5 5.0 - 9.0 [facility] Glucose Urine UA >=1000(A) Negative mg/dL [facility] Urine Blood Negative Negative [facility] Specific [place] - Urine >=1.030(H) 1.005 - 1.025 [facility] Urine Protein Negative Neg-Trace mg/dL [facility] Urine Ketones Trace Negative mg/dL [facility] Nitrite Urine Negative Negative [facility] Leukocyte Esterase Urine Negative Negative [facility] RBC Urine 0-2 0 - 2 /HPF [facility] Urine WBC 0-5 0 - 5 /HPF [facility] Urine Squamous Epithelial Cell 0-2 0 - 2 /HPF [facility] Urine Bacteria None Seen None Seen [facility] Hyaline Casts, Urine 0-2 0 - 2 /LPF [facility] 05/17/2025 1:54 PM EST 05/17/2025 2:14 PM EST Narrative [facility] - 05/17/2025 2:39 PM EST Urine, Clean Catch us Generic External Data Provider LAB URINE ORDERAB LES Final Result Performing Organization Address [facility]/ZIP Co de Phone Number [facility] [address] [place] [phone] * VENOUS BLOOD GAS (05/17/2025 12:48 PM EST) Pathologist [facility] VBG pH 7.40 7.32 - 7.43 [facility] Comment:METER #: [id number] additional_comment: Jose menon VBG PCO2 38 mmHg [facility] Comment:METER #: [id number] additional_comment: Cb sinan VBG PO2 52 mmHg [facility] Comment:METER #: [id number] additional_comment: Jose menon VBG Base Excess -0.1 mmol/L [facility] Comment:METER #: [id number] additional_comment: Cb sinan VBG HCO3 24 22 - 26 mmol/L [facility] Comment:METER #: [id number] additional_comment: Jose menon O2 Sat, Femi 79.0 % [facility] Comment:METER #: [id number] additional_comment: Jose menon 05/17/2025 12:4 8 PM EST 05/17/2025 12:51 PM EST us Generic External Data Provider LAB BLOOD ORDERAB LES Final Result Performing Organization Address [facility]/ZIP Co de Phone Number [facility] [address] [place] [phone] [phone] * High Sensitivity Troponin I (05/17/2025 12:41 PM EST) TROPONIN I HIGH SENSITIVITY <2.7 <3.5 - 17.0 ng/L [facility] Comment:The Fuller high sens itivity Troponin-I results should beused in conjunction with other diagnostic information suchas ECG, clinical observations and information, and patientsymptoms to aid in the diagnosis of [place]. 05/17/2025 12:4 1 PM EST 05/17/2025 12:47 PM EST Generic External Data Provider LAB BLOOD ORDERAB LES Final Result Performing Organization Address [facility] Co de Phone Number [facility] [address] [place] [phone] * Magnesium (05/17/2025 12:41 PM EST) Pathologist [facility] Magnesium 1.6 1.6 - 2.6 mg/dL [facility] 05/17/2025 12:4 1 PM EST 05/17/2025 12:47 PM EST Generic External Data Provider LAB BLOOD ORDERAB LES Final Result Performing Organization Address [facility] Phone Number [facility] [address] [place] [phone] * (ABNORMAL) Basic Metabolic Panel (05/17/2025 12:41 PM EST) Pathologist [facility] Sodium 130(L) 135 - 145 mmol/L [facility] Potassium 4.1 3.3 - 5.1 mmol/L [facility] Chloride 97 96 - 108 mmol/L [facility] Carbon Dioxide 24 22 - 29 mmol/L [facility] Anion Gap 13 12 - 20 [facility] Urea Nitrogen (BUN) 18(H) 9 - 16 mg/dL [facility] Creatinine, Serum 1.18 0.5 - 1.4 mg/dL [facility] Creatinine Clr Calc Pharmacy 63.5 [facility] Comment:Provided height and weight: 160.02 cm,95.9 kg.eGFR (calculated from the MDRD study equation) and eCrCl(calculated from the Cockcroft-Gault equation) are based ondifferent parameters and may not yield comparable results.If eCrCl result is absurd, please check patient'sheight/weight. Estimated Glomerular Filt Rate 49 [facility] Comment:Chronic Kidney Disea se: Estimated GFR < 60 mL/min/1.01h7Mnkpba Kidney Disease: Estimated GFR < 15 mL/min/1.73m2 Glucose 465(HH) 60 - 115 mg/dL [facility] Comment:Critical value for G LUCOSE Results called to and read backby: DEVEN Person calling: SEANOSSF Date: 05/17/25 Time:1308 Calcium 9.3 8.4 - 10.2 mg/dL [facility] 05/17/2025 12:4 1 PM EST 05/17/2025 12:47 PM EST Generic External Data Provider LAB BLOOD ORDERAB LES Final Result Performing Organization Address [facility] Co de Phone Number [facility] [address] [place] [phone] * (ABNORMAL) Hepatic Function Panel (05/17/2025 12:41 PM EST) Bilirubin, Total 0.3 0.0 - 1.0 mg/dL [facility] Bilirubin, Direct 0.1 0.0 - 0.5 mg/dL [facility] Aspartate Amino Transferase 39(H) 5 - 31 U/L [facility] Alanine Aminotransferase 41(H) 0 - 31 U/L [facility] Total Protein 7.7 6.5 - 8.0 g/dL [facility] Albumin Level 4.5 3.5 - 5.0 g/dL [facility] Alkaline Phosphatase 122(H) 39 - 117 U/L [facility] 05/17/2025 12:4 1 PM EST 05/17/2025 12:47 PM EST us Generic External Data Provider LAB BLOOD ORDERAB LES Final Result Performing Organization Address [facility]/ZIP Co de Phone Number [facility] [address] [place] [phone] * Beta-Hydroxybutyrate (05/17/2025 12:41 PM EST) Beta-Hydroxybut yrate 0.27 0.02 - 0.27 mmol/L [facility] 05/17/2025 12:4 1 PM EST 05/17/2025 12:47 PM EST us Generic External Data Provider LAB BLOOD ORDERAB LES Final Result [facility] [address] [place] [phone] * CBC auto differential (05/17/2025 12:41 PM EST) Pathologist [facility] White Blood Count 5.8 4.8 - 10.8 X10*3/uL [facility] Red Blood Count 4.55 4.20 - 5.50 X10*6/uL [facility] Hemoglobin 12.8 12.0 - 16.0 g/dl [facility] Hematocrit 38.7 37.0 - 47.0 % [facility] Mean Corpuscular Volume 85.1 80.0 - 98.0 fL [facility] Mean Corpuscular Hemoglobin 28.1 27.0 - 33.0 pg [facility] Mean Corpuscular HGB Conc 33.1 31.0 - 35.0 g/dl [facility] Red Cell Distribution Width 12.6 11.0 - 16.0 % [facility] Platelet Count 280 160 - 400 X10*3/uL [facility] Mean Platelet Volume 11.0 9.4 - 12.3 fL [facility] Neutrophils Percent Auto 52.2 45 - 73 % [facility] Imm Gran Pct Auto 0.2 0.0 - 0.4 % [facility] Lymphocytes Percent Auto 36.3 20 - 40 % [facility] Monocytes Percent Auto 9.2 2 - 11 % [facility] Eosinophils Percent Auto 1.2 0 - 4 % [facility] Basophils Percent Auto 0.9 0 - 2 % [facility] NRBC Pct Auto 0.0 0.0 - 0.2 /100WBC [facility] Neutrophils Absolute Auto 3.0 2.0 - 8.3 x10*3/uL [facility] Imm Gran Abs Auto 0.01 0.00 - 0.03 X10*3/uL [facility] Lymphocytes Absolute Auto 2.1 1.2 - 4.9 X10*3/uL [facility] Monocytes Absolute Auto 0.5 0.1 - 1.2 X10*3/uL [facility] Eosinophils Absolute Auto 0.1 0.0 - 0.4 X10*3/uL [facility] Basophils Absolute Auto 0.1 0.0 - 0.2 X10*3/uL [facility] NRBC Abs Auto 0.000 0.0 - 0.012 X10*3/uL [facility] 05/17/2025 12:4 1 PM EST 05/17/2025 12:47 PM EST us Generic External Data Provider LAB BLOOD ORDERAB LES Final Result [facility] [address] [place] [phone] * SARS-CoV-2 RNA, Influenza A/B, and RSV RNA, Ql NAAT (05/17/2025 12:39 PM EST) Influenza A PCR NEGATIVE Negative [facility] Influenza B PCR NEGATIVE Negative [facility] Resp Syncy Virus RNA Qual PCR NEGATIVE Negative [facility] SARS COV2 PCR NEGATIVE Negative [facility] Comment:All test results mus t be correlated with clinical findings.Negative results do not preclude SARS-CoV2, influenza Avirus, influenza B virus and/or RSV infectionand should not be used as the sole basis for treatment orother patient management decisions. Negative results must becombined with clinical observations, patient history, andepidemiological information.This test has not been evaluated for monitoring treatment ofinfection.This test has been authorized by the FDA under an EmergencyUse Authorization (EUA) for use by authorized laboratories.Testing performed on the [employer] publishing GeneXpert utilizingreal-time RT-PCR.All SARS CoV2 and positive influenza A/B results arereported to [facility]. 05/17/2025 12:3 9 PM EST 05/17/2025 12:47 PM EST Generic External Data Provider LAB MICROBIOLOGY - GENERAL ORDERABLES Final Result Performing Organization Address City/[facility]/ZIP Co de Phone Number [facility] [address] [place] [phone] * (ABNORMAL) Glucose, Whole Blood (05/17/2025 12:27 PM EST) Glucose, Whole Blood 436(HH) 60 - 115 mg/dL [facility] Comment:METER #: [id number] 05/17/2025 12:2 7 PM EST 05/17/2025 12:32 PM EST Generic External Data Provider LAB BLOOD ORDERAB LES Final Result Performing Organization Address [facility] Co mo Phone Number [facility] [address] [place] [phone] * (ABNORMAL) Glucose, Whole Blood (05/13/2025 3:49 PM EST) Glucose, Whole Blood 365(HH) 60 - 115 mg/dL [facility] Comment:METER #: [id number] 05/13/2025 3:49 PM EST 05/13/2025 3:52 PM EST Generic External Data Provider LAB BLOOD ORDERAB LES Final Result Performing Organization Address [facility] Co de Phone Number [facility] [address] [place] [phone] * (ABNORMAL) Glucose, Whole Blood (05/13/2025 2:47 PM EST) Glucose, Whole Blood 394(HH) 60 - 115 mg/dL [facility] Comment:METER #: [id number] 05/13/2025 2:47 PM EST 05/13/2025 2:51 PM EST us Generic External Data Provider LAB BLOOD ORDERAB LES Final Result Performing Organization Address City/State/[facility] Co de Phone Number [facility] [address] [place] [phone] * CT Head w/o Contrast (05/13/2025 1:43 PM EST) Anatomical Region Laterality Modality Head, Neck Computed Tomogra phy 05/13/2025 1:43 PM EST Narrative 05/13/2025 2:03 PM EST [address] [address] [address] Scan Report Signed Patient: Radha Rios MR#: [id number] : 1975 Acct:[id number] Age/Sex: 50 / F ADM Date: 05/13/25 Loc: HO.ED Attending Dr: Ordering Physician: Roxie Molina DO Date of Service: 05/13/25 Procedure(s): CT head/brain wo IV con Accession Number(s): [id number] cc: Roxie Molina DO; Estefania Hurley MD Report Number: [id number]: Total DLP = 680.00 mGy-cm Reason for [...] by: Demar Gray MD 05/13/2025 02:00 PM [facility] Dictated By: Demar Gray MD Signed By: <Electronically signed by Demar Gray MD in OV> 05/13/25 1400 DD/ 1343 TD/TT: 05/13/25 1352 Water Treatment Plant Engineer: Procedure Note Donotuseinterpreter, Image - 05/13/[address] [place] [address] [address] Scan Report Signed Patient: Sherrill Rios#: [id number] : 1975Acct:[id number] Age/Sex: 50 / FADM Date: 05/13/25 Loc: .ED Attending Dr: Ordering Physician: Roxie Molina DO Date of Service: 05/13/25 Procedure(s): CT head/brain wo IV con Accession Number(s): [id number] cc: Roxie Molina DO; Estefania Hurley MD Report Number: [id number]: Total DLP = 680.00 mGy-cm Reason for [...] 05/13/25 1400 DD/ 1343 TD/TT: 05/13/25 1352 Water Treatment Plant Engineer: [facility] External Provider IMG CT PROCEDURES Edited Result - Final * (ABNORMAL) Glucose, Whole Blood (05/13/2025 1:22 PM EST) Glucose, Whole Blood 470(HH) 60 - 115 mg/dL [facility] Comment:METER #: [id number] 05/13/2025 1:22 PM EST 05/13/2025 1:26 PM EST Generic External Data Provider LAB BLOOD ORDERAB LES Final Result [facility] [address] [place] [phone] * (ABNORMAL) VENOUS BLOOD GAS (05/13/2025 1:07 PM EST) VBG pH 7.40 7.32 - 7.43 [facility] Comment:METER #: [id number] additional_comment: Cb rojascr VBG PCO2 43 mmHg [facility] Comment:METER #: [id number] additional_comment: Cb rojascr VBG PO2 43 mmHg [facility] Comment:METER #: [id number] additional_comment: Cb rojascr VBG Base Excess 1.9 mmol/L [facility] Comment:METER #: [id number] additional_comment: Cb rojascr VBG HCO3 27(H) 22 - 26 mmol/L [facility] Comment:METER #: [id number] additional_comment: Cb rojascr O2 Sat, Femi 66.0 % [facility] Comment:METER #: [id number] additional_comment: Cb rojascr 05/13/2025 1:07 PM EST 05/13/2025 1:14 PM EST us Generic External Data Provider LAB BLOOD ORDERAB LES Final Result Performing Organization Address City/State/[facility] Co de Phone Number [facility] [address] [place] [phone] * XR Chest 2 Views (05/13/2025 1:05 PM EST) Anatomical Region Laterality Modality Chest Radiographic Marcela ging 05/13/2025 1:05 PM EST Narrative 05/13/2025 1:18 PM EST [address] [address] XRay Report Signed Patient: Radha Rios MR#: [id number] : 1975 Acct:[id number] Age/Sex: 50 / F ADM Date: 05/13/25 Loc: .ED Attending Dr: Ordering Physician: Sarai Vu Date of Service: 05/13/25 Procedure(s): XR chest 2V Accession Number(s): [id number] cc: Sarai Vu; Estefania Hurley MD Reason [...] MD in OV> 05/13/251314 DD/ 04 TD/TT: 05/13/25 131 Water Treatment Plant Engineer: Procedure Note Donotuseinterpreter, Image - 05/13/2025 [place] [address] XRay Report Signed Patient: Sherrill Rios#: [id number] : 1975Acct:[id number] Age/Sex: 50 / FADM Date: 05/13/25 Loc: .ED Attending Dr: Ordering Physician: Sarai Vu Date of Service: 05/13/25 Procedure(s): XR chest 2V Accession Number(s): [id number] cc: Sarai Vu; Estefania Hurley MD Reason [...] MD in OV> 05/13/251314 DD/ 04 TD/TT: 05/13/25 1310 Water Treatment Plant Engineer: [facility] External Provider IMG XR PROCEDURES Edited Result - Final * Magnesium (05/13/2025 1:00 PM EST) Magnesium 2.0 1.6 - 2.6 mg/dL [facility] 05/13/2025 1:00 PM EST 05/13/2025 1:07 PM EST us Generic External Data Provider LAB BLOOD ORDERAB LES Final Result [facility] [address] [place] [phone] * (ABNORMAL) Comprehensive Metabolic Panel (05/13/2025 1:00 PM EST) Sodium 137 135 - 145 mmol/L [facility] Potassium 3.6 3.3 - 5.1 mmol/L [facility] Chloride 100 96 - 108 mmol/L [facility] Carbon Dioxide 27 22 - 29 mmol/L [facility] Anion Gap 14 12 - 20 [facility] Urea Nitrogen (BUN) 16 9 - 16 mg/dL [facility] Creatinine, Serum 1.20 0.5 - 1.4 mg/dL [facility] Creatinine Clr Calc Pharmacy 62.0 [facility] Comment:Provided height and weight: 160.02 cm,94.5 kg.eGFR (calculated from the MDRD study equation) and eCrCl(calculated from the Cockcroft-Gault equation) are based ondifferent parameters and may not yield comparable results.If eCrCl result is absurd, please check patient'sheight/weight. Estimated Glomerular Filt Rate 48 [facility] Comment:Chronic Kidney Disea se: Estimated GFR < 60 mL/min/1.71p2Tgrxqy Kidney Disease: Estimated GFR < 15 mL/min/1.73m2 Glucose 516(HH) 60 - 115 mg/dL [facility] Comment:Critical value for t est(s): GLUR Results called to and readback by: OMEGA Person calling: PAT Date: 05/13/25Time: 1340 Calcium 9.4 8.4 - 10.2 mg/dL [facility] Bilirubin, Total 0.4 0.0 - 1.0 mg/dL [facility] Aspartate Amino Transferase 26 5 - 31 U/L [facility] Alanine Aminotransferase 33(H) 0 - 31 U/L [facility] Total Protein 8.1(H) 6.5 - 8.0 g/dL [facility] Albumin Level 4.8 3.5 - 5.0 g/dL [facility] Alkaline Phosphatase 144(H) 39 - 117 U/L [facility] 05/13/2025 1:00 PM EST 05/13/2025 1:07 PM EST Generic External Data Provider LAB BLOOD ORDERAB LES Final Result Performing Organization Address [facility] Co de Phone Number [facility] [address] [place] [phone] * Influenza A B2 ID NOW (Fuller) (05/13/2025 1:00 PM EST) [facility] IDNOW SERIAL# [id number] [facility] Influenza A Negative Negative [facility] Influenza B2 Negative Negative [facility] Influenza A B2 Note See Note [facility] Comment:The Fuller ID NOW In [...] GENERAL ORDERABLES Final Result Performing Organization Address [facility] [facility] Co de Phone Number [facility] [address] [place] [address] [phone] * High Sensitivity Troponin I (05/13/2025 1:00 PM EST) [facility] TROPONIN I HIGH SENSITIVITY <2.7 <3.5 - 17.0 ng/L [facility] Comment:The Fuller high sens itivity Troponin-I results should beused in conjunction with other diagnostic information suchas ECG, clinical observations and information, and patientsymptoms to aid in the diagnosis of [place]. 05/13/2025 1:00 PM EST 05/13/2025 1:07 PM EST us Generic External Data Provider LAB BLOOD ORDERAB LES Final Result [facility] [address] [place] [address] [phone] * COVID-19 ID NOW (FULLER) (05/13/2025 1:00 PM EST) IDNOW SERIAL# [id number] [facility] COVID-19 TEST Negative Negative [facility] COVID-19 NOTE See Note [facility] Comment: Results are for the identification of SARS-CoV2 RNA. TheSARS-CoV2 RNA is generally detectable in respiratory samplesduring the acute phase of infection. Positive results areindicative of the presence of SARS-CoV-2 RNA; clinicalcorrelation with patient history and other diagnosticinformation is necessary to determine patient infectionstatus. Positive results do not rule out bacterial infectionor co- infection with other viruses.Testing facilities within the [facility] are required to report all positive results [...] use by authorized laboratories.Testing performed on the Fuller ID NOW utilizing NAAT. 05/13/2025 1:00 PM EST 05/13/2025 1:07 PM EST Generic External Data Provider LAB MOLECULAR SKYLER GNOSTICS ORDERABLES Final Result Performing Organization Address [facility]/ZIP Co de Phone Number [facility] [address] [place] [phone] * (ABNORMAL) Beta-Hydroxybutyrate (05/13/2025 1:00 PM EST) Pathologist [facility] Beta-Hydroxybu tyrate 0.38(H) 0.02 - 0.27 mmol/L [facility] 05/13/2025 1:00 PM EST 05/13/2025 1:07 PM EST Generic External Data Provider LAB BLOOD ORDERAB LES Final Result Performing Organization Address [facility] Number [facility] [address] [place] [phone] * CBC auto differential (05/13/2025 1:00 PM EST) Pathologist [facility] White Blood Count 5.7 4.8 - 10.8 X10*3/uL [facility] Red Blood Count 4.67 4.20 - 5.50 X10*6/uL [facility] Hemoglobin 13.1 12.0 - 16.0 g/dl [facility] Hematocrit 39.9 37.0 - 47.0 % [facility] Mean Corpuscular Volume 85.4 80.0 - 98.0 fL [facility] Mean Corpuscular Hemoglobin 28.1 27.0 - 33.0 pg [facility] Mean Corpuscular HGB Conc 32.8 31.0 - 35.0 g/dl [facility] Red Cell Distribution Width 12.5 11.0 - 16.0 % [facility] Platelet Count 296 160 - 400 X10*3/uL [facility] Mean Platelet Volume 10.7 9.4 - 12.3 fL [facility] Neutrophils Percent Auto 53.5 45 - 73 % [facility] Imm Gran Pct Auto 0.2 0.0 - 0.4 % [facility] Lymphocytes Percent Auto 34.9 20 - 40 % [facility] Monocytes Percent Auto 8.4 2 - 11 % [facility] Eosinophils Percent Auto 1.6 0 - 4 % [facility] Basophils Percent Auto 1.4 0 - 2 % [facility] NRBC Pct Auto 0.0 0.0 - 0.2 /100WBC [facility] Neutrophils Absolute Auto 3.1 2.0 - 8.3 x10*3/uL [facility] Imm Gran Abs Auto 0.01 0.00 - 0.03 X10*3/uL [facility] Lymphocytes Absolute Auto 2.0 1.2 - 4.9 X10*3/uL [facility] Monocytes Absolute Auto 0.5 0.1 - 1.2 X10*3/uL [facility] Eosinophils Absolute Auto 0.1 0.0 - 0.4 X10*3/uL [facility] Basophils Absolute Auto 0.1 0.0 - 0.2 X10*3/uL [facility] NRBC Abs Auto 0.000 0.0 - 0.012 X10*3/uL [facility] 05/13/2025 1:00 PM EST 05/13/2025 1:07 PM EST us Generic External Data Provider LAB BLOOD ORDERAB LES Final Result Performing Organization Address City/State/[facility] Co de Phone Number [facility] [address] [place] [phone] * (ABNORMAL) Bacterial Vaginosis (05/13/2025 12:00 PM EST) TRICHOMONAS VAGINALIS DETECTION BY PCR NOT DETECTED Not Detect [facility] BACTERIAL VAGINOSIS DETECTION BY PCR NEGATIVE Negative [facility] Comment:The BV organism targ ets of the Xpert Xpress MVP test can becommensal in women; Xpert Xpress MVP positive results forbacterial vaginosis should be considered in conjunction withother clinical and patient information to determine thedisease status. Organisms that are not detected by the XpertXpress MVP test have also been reported to be associatedwith BV and aerobic vaginitis.The Xpert Xpress MVP test performance has not been evaluatedin patients under the age of 14. SHONA GROUP DETECTION BY PCR DETECTED(A) Not Detect [facility] Shona glab krusei PCR NOT DETECTED Not Detect [facility] 05/13/2025 12:0 0 PM EST 05/13/2025 6:41 PM EST us Estefania Hurley MD LAB MICROBIOLOGY - GENERAL OR DERABLES Final Result [facility] [address] [place] [phone] documented in this encounter Visit Diagnoses Not on filedocumented in this encounter Care Teams [employer] Relationship Specialty Start Date End Date Estefania Hurley MD [address] [place] [phone] PCP - General Family Medicine 08/04/23 documented as of this encounter
--- OUTSIDE RECORDS SUMMARY | 2025-05-17 15:12 | XMS_ITS | Encounter Summary ---
Author Organization [employer] Address [address] [facility] [address] [place] [address] Care Team Providers Care Mail Inserter Name Role Phone Estefania Hurley MD Primary Care Provider [phone] Encounter Details Date Type Department Care Team (Latest Contact Info) Description 05/17/2025 Travel Social History Tobacco Use Types Packs/Day [...] 1:40 PM EST Office Visit [facility] [address] [place] [address] 05/27/2025 3:45 PM EST Office Visit [facility] [address] [place] [address] Estefania Hurley MD [address] [place] [address] 06/13/2025 2:00 PM EST Office Visit [facility] [address] [place] [phone] Estefania Hurley MD [address] [place] [phone] documented as of this encounter Visit Diagnoses Not on filedocumented in this encounter Care Teams Mail Inserter Relationship Specialty Start Date End Date Estefania Hurley MD [address] [place] [phone] PCP - General Family Medicine 08/04/23 documented as of this encounter
--- OUTSIDE RECORDS SUMMARY | 2025-05-17 15:12 | XMS_ITS | Clinical Summary ---
Author Organization [employer] Address [address] [place] [address] 7 [place] [address] Care Team Providers Care Flight Superintendent Name Role Phone Estefania Hurley MD Primary Care Provider [phone] Allergies No known active allergies Medications oxymetazoline (Afrin Nasal [place]) 0.05 % nasal sprayIndication s:Rhinosinusiti s Administer [...] MOUTH DAILY 90 tablet 1 5 Active fluconazole (Diflucan) 150 MG tablet Take 1 tablet (150 mg) by mouth 1 (one) time for 1 dose. 1 tablet 5 05/14/20 25 Active Problems Problem Noted Date Diagnosed Date [...] significant hyperglycemia (blood glucose >500 mg/dL/ fgstk H and A1c of 13), currently symptomatic and [...] agree to go to ED. I called [facility] and spoke with Gale (radiotelephone operator) for a soft sign out. - Patient to follow-up with PCP upon discharge Rhinosinusitis 10/14/2023 Assessment & Plan (10/15/2023 2:17 AM EDT): Confirmed congestion and sinus discomfort. Related Orders: Oxymetazoline, 0.05% Nasal [place] Amoxicillin, 500 MG tablet Trigger finger, left [...] Center 09/09/2023 8:30 AM Estefania Hurley MD [facility] Encounter for health-related screening Hypertensive disorder [...] Encounters Date Type Department Care Team Description 05/17/2025 10:30 AM EST Clinical Support [facility] [address] [place] [address] Sara Patel, RN Hyperglycemia due to diabetes mellitus (HCC) [E11.65] 05/17/2025 Travel 05/17/2025 Telephone [facility] [address] [place] [address] Estefania Hurley MD Nurse Triage 05/16/2025 Travel 05/15/2025 Travel 05/15/2025 Telephone [facility] [address] [place] [address] Estefania Hurley MD Appointment Request 05/15/2025 Telephone [facility] [address] [place] [phone] Estefania Hurley MD ER Follow-up 05/14/2025 Results Follow-Up [facility] [address] [place] [address] Estefania Hurley MD CBC auto differential, VENOUS BLOOD GAS, Glucose, Whole Blood, Additional followed-up results: 17 05/13/2025 11:00 AM EST Office Visit [facility] [address] [place] [phone] Velia Gordon MD Type 2 diabetes mellitus with hyperglycemia, without long-term current use of insulin (HCC) (Primary Dx); Blurry vision, bilateral; Subacute vaginitis; Hypertension, unspecified type 05/13/2025 Orders Only GENERIC EXTERNAL DATA DEPARTMENT Provider, Generic External Data 05/13/2025 Travel 05/06/2025 Telephone [facility] [address] [place] [phone] Estefania Hurley MD Nurse Triage 04/12/2025 Telephone [facility] [address] [place] [address] Estefania Hurley MD Nurse Triage 03/07/2025 Telephone [facility] [address] [place] [address] Estefania Hurley MD Med Refill from Last [...] Description 05/20/2025 1:40 PM EST Office Visit [facility] [address] [place] [address] 05/27/2025 3:45 PM EST Office Visit [facility] [address] [place] [address] Estefania Hurley MD [address] [place] [address] 06/13/2025 2:00 PM EST Office Visit [facility] [address] [place] [address] Estefania Hurley MD [address] [place] [address] Health Maintenance Due Date Last Done Comments [...] TROPONIN I Routine 05/17/2025 12:41 PM EST MAGNESIUM Routine 05/17/2025 12:41 PM EST BASIC METABOLIC PANEL Routine 05/17/2025 12:41 PM EST HEPATIC FUNCTION PANEL Routine 12:41 PM EST BETA-HYDROXYBUTYRATE Routine 05/17/2025 12:41 PM EST CBC WITH AUTO DIFFERENTIAL Routine 05/17/2025 12:41 PM EST POCT GLUCOSE Routine 05/17/2025 12:40 PM EST Hyperglycemia due to diabetes mellitus (HCC) [E11.65] SARS COV2/INFLUENZA A/B AND RSV RNA QL [...] NOW (FULLER) Routine 05/13/2025 1:00 PM EST BETA-HYDROXYBUTYRATE Routine [...] 05/13/2025 12:18 PM EST Blurry vision, bilateral BACTERIAL VAGINOSIS PANEL Routine 05/13/2025 12:00 PM EST LAB COLOGUARD COLON CANCER SCREEN Routine 09/19/2023 [...] Recently Relevant to Health Maintenance Results * XR Chest 1 View (05/17/2025 2:32 PM EST) Anatomical Region Laterality Modality Chest Radiographic Marcela ging 05/17/2025 2:32 PM EST Narrative 05/17/2025 2:48 PM EST [address] [address] XRay Report Signed Patient: Radha Rios MR#: [id number] : 1975 Acct:[id number] Age/Sex: 50 / F ADM Date: 05/17/25 Loc: .ED Attending Dr: Ordering Physician: Maria Luz Sahni MD Date of Service: 05/17/25 Procedure(s): XR chest 1V Accession Number(s): [id number] cc: Maria Luz Sahni MD; Estefania Hurley [...] by: Brendan Thompson MD 05/17/2025 02:44 PM [facility] Dictated By: Brendan Thompson MD Signed By: <Electronically signed by Brendan Thompson MD in OV> 05/17/25 1444 DD/ 1432 TD/TT: 05/17/25 1436 Frame Opener: Procedure Note Donotuseinterpreter, Image - 05/17/2025 [place] [address] XRay Report Signed Patient: Sherrill Rios#: [id number] : 1975Acct:[id number] Age/Sex: 50 / FADM Date: 05/17/25 Loc: .ED Attending Dr: Ordering Physician: Maria Luz Sahni MD Date of Service: 05/17/25 Procedure(s): XR chest 1V Accession Number(s): [id number] cc: Maria Luz Sahni MD; Estefania Hurley [...] 05/17/25 1444 DD/ 1432 TD/TT: 05/17/25 1436 Frame Opener: [facility] External Provider IMG XR PROCEDURES Final Result * (ABNORMAL) Urinalysis, Complete, with Reflex to Culture (05/17/2025 1:54 PM EST) Color Urine Yellow [facility] Appearance Urine Clear [facility] PH 5.5 5.0 - 9.0 [facility] Glucose Urine UA >=1000(A) Negative mg/dL [facility] Urine Blood Negative Negative [facility] Specific [employer] - Urine >=1.030(H) 1.005 - 1.025 [facility] Urine Protein Negative Neg-Trace mg/dL [facility] Urine Ketones Trace Negative mg/dL [facility] Nitrite Urine Negative Negative [facility] Leukocyte Esterase Urine Negative Negative [facility] RBC Urine 0-2 0 - 2 /HPF [facility] Urine WBC 0-5 0 - 5 /HPF [facility] Urine Squamous Epithelial Cell 0-2 0 - 2 /HPF [facility] Urine Bacteria None Seen None Seen [facility] Hyaline Casts, Urine 0-2 0 - 2 /LPF [facility] 05/17/2025 1:54 PM EST 05/17/2025 2:14 PM EST Narrative [facility] - 05/17/2025 2:39 PM EST Urine, Clean Catch Generic External Data Provider LAB URINE ORDERAB LES Final Result [facility] [address] [place] [phone] * VENOUS BLOOD GAS (05/17/2025 12:48 PM EST) Only the most recent of2 resultswithin the time period is included. VBG pH 7.40 7.32 - 7.43 [facility] Comment:METER #: [id number] additional_comment: Jose menon VBG PCO2 38 mmHg [facility] Comment:METER #: [id number] additional_comment: Jose menon VBG PO2 52 mmHg [facility] Comment:METER #: [id number] additional_comment: Jose menon VBG Base Excess -0.1 mmol/L [facility] Comment:METER #: [id number] additional_comment: Jose menon VBG HCO3 24 22 - 26 mmol/L [facility] Comment:METER #: [id number] additional_comment: Jose menon O2 Sat, Femi 79.0 % [facility] Comment:METER #: [id number] additional_comment: Jose menon 05/17/2025 12:4 8 PM EST 05/17/2025 12:51 PM EST us Generic External Data Provider LAB BLOOD ORDERAB LES Final Result [facility] [address] [place] [phone] * High Sensitivity Troponin I (05/17/2025 12:41 PM EST) Only the most recent of2 resultswithin the time period is included. TROPONIN I HIGH SENSITIVITY <2.7 <3.5 - 17.0 ng/L [facility] Comment:The Fuller high sens itivity Troponin-I results should beused in conjunction with other diagnostic information suchas ECG, clinical observations and information, and patientsymptoms to aid in the diagnosis of NM. 05/17/2025 12:4 1 PM EST 05/17/2025 12:47 PM EST us Generic External Data Provider LAB BLOOD ORDERAB LES Final Result Performing Organization Address City/[facility]/ZIP Co de Phone Number [facility] [address] [place] [address] [phone] * Beta-Hydroxybutyrate (05/17/2025 12:41 PM EST) Only the most recent of2 resultswithin the time period is included. Pathologist [facility] Beta-Hydroxybut yrate 0.27 0.02 - 0.27 mmol/L [facility] 05/17/2025 12:4 1 PM EST 05/17/2025 12:47 PM EST Generic External Data Provider LAB BLOOD ORDERAB LES Final Result Performing Organization Address [facility] Co de Phone Number [facility] [address] [place] [address] [phone] * CBC auto differential (05/17/2025 12:41 PM EST) Only the most recent of2 resultswithin the time period is included. Pathologist [facility] White Blood Count 5.8 4.8 - 10.8 X10*3/uL [facility] Red Blood Count 4.55 4.20 - 5.50 X10*6/uL [facility] Hemoglobin 12.8 12.0 - 16.0 g/dl [facility] Hematocrit 38.7 37.0 - 47.0 % [facility] Mean Corpuscular Volume 85.1 80.0 - 98.0 fL [facility] Mean Corpuscular Hemoglobin 28.1 27.0 - 33.0 pg [facility] Mean Corpuscular HGB Conc 33.1 31.0 - 35.0 g/dl [facility] Red Cell Distribution Width 12.6 11.0 - 16.0 % [facility] Platelet Count 280 160 - 400 X10*3/uL [facility] Mean Platelet Volume 11.0 9.4 - 12.3 fL [facility] Neutrophils Percent Auto 52.2 45 - 73 % [facility] Imm Gran Pct Auto 0.2 0.0 - 0.4 % [facility] Lymphocytes Percent Auto 36.3 20 - 40 % [facility] Monocytes Percent Auto 9.2 2 - 11 % [facility] Eosinophils Percent Auto 1.2 0 - 4 % [facility] Basophils Percent Auto 0.9 0 - 2 % [facility] NRBC Pct Auto 0.0 0.0 - 0.2 /100WBC [facility] Neutrophils Absolute Auto 3.0 2.0 - 8.3 x10*3/uL [facility] Imm Gran Abs Auto 0.01 0.00 - 0.03 X10*3/uL [facility] Lymphocytes Absolute Auto 2.1 1.2 - 4.9 X10*3/uL [facility] Monocytes Absolute Auto 0.5 0.1 - 1.2 X10*3/uL [facility] Eosinophils Absolute Auto 0.1 0.0 - 0.4 X10*3/uL [facility] Basophils Absolute Auto 0.1 0.0 - 0.2 X10*3/uL [facility] NRBC Abs Auto 0.000 0.0 - 0.012 X10*3/uL [facility] 05/17/2025 12:4 1 PM EST 05/17/2025 12:47 PM EST us Generic External Data Provider LAB BLOOD ORDERAB LES Final Result Performing Organization Address City/[facility] Co de Phone Number [facility] [address] [place] [phone] * Magnesium (05/17/2025 12:41 PM EST) Only the most recent of2 resultswithin the time period is included. Magnesium 1.6 1.6 - 2.6 mg/dL [facility] 05/17/2025 12:4 1 PM EST 05/17/2025 12:47 PM EST Generic External Data Provider LAB BLOOD ORDERAB LES Final Result Performing Organization Address City/State/[facility] Co de Phone Number [facility] [address] [place] [address] [phone] * (ABNORMAL) Hepatic Function Panel (05/17/2025 12:41 PM EST) Bilirubin, Total 0.3 0.0 - 1.0 mg/dL [facility] Bilirubin, Direct 0.1 0.0 - 0.5 mg/dL [facility] Aspartate Amino Transferase 39(H) 5 - 31 U/L [facility] Alanine Aminotransferase 41(H) 0 - 31 U/L [facility] Total Protein 7.7 6.5 - 8.0 g/dL [facility] Albumin Level 4.5 3.5 - 5.0 g/dL [facility] Alkaline Phosphatase 122(H) 39 - 117 U/L [facility] 05/17/2025 12:4 1 PM EST 05/17/2025 12:47 PM EST us Generic External Data Provider LAB BLOOD ORDERAB LES Final Result Performing Organization Address [facility] Co de Phone Number [facility] [address] [place] [phone] * (ABNORMAL) Basic Metabolic Panel (05/17/2025 12:41 PM EST) Sodium 130(L) 135 - 145 mmol/L [facility] Potassium 4.1 3.3 - 5.1 mmol/L [facility] Chloride 97 96 - 108 mmol/L [facility] Carbon Dioxide 24 22 - 29 mmol/L [facility] Anion Gap 13 12 - 20 [facility] Urea Nitrogen (BUN) 18(H) 9 - 16 mg/dL [facility] Creatinine, Serum 1.18 0.5 - 1.4 mg/dL [facility] Creatinine Clr Calc Pharmacy 63.5 [facility] Comment:Provided height and weight: 160.02 cm,95.9 kg.eGFR (calculated from the MDRD study equation) and eCrCl(calculated from the Cockcroft-Gault equation) are based ondifferent parameters and may not yield comparable results.If eCrCl result is absurd, please check patient'sheight/weight. Estimated Glomerular Filt Rate 49 [facility] Comment:Chronic Kidney Disea se: Estimated GFR < 60 mL/min/1.86f6Hxumbd Kidney Disease: Estimated GFR < 15 mL/min/1.73m2 Glucose 465(HH) 60 - 115 mg/dL [facility] Comment:Critical value for G LUCOSE Results called to and read backby: DEVEN Person calling: DELOSSF Date: 05/17/25 Time:1308 Calcium 9.3 8.4 - 10.2 mg/dL [facility] 05/17/2025 12:4 1 PM EST 05/17/2025 12:47 PM EST us Generic External Data Provider LAB BLOOD ORDERAB LES Final Result [facility] [address] [place] [phone] * (ABNORMAL) POCT Glucose (05/17/2025 12:40 PM EST) Only the most recent of2 resultswithin the time period is included. Glucose Blood, POC 500(A) 60 - 200 mg/dL Comment:MAchine only reads u p to 500 Blood Capillary blood specimen / Unknown 05/17/2025 12:40 PM EST us Estefania Hurley MD POINT OF CARE TEST ENTER/EDIT ORDERABLES Final Result * SARS-CoV-2 RNA, Influenza A/B, and RSV RNA, Ql NAAT (05/17/2025 12:39 PM EST) Pathologist [facility] Influenza A PCR NEGATIVE Negative [facility] Influenza B PCR NEGATIVE Negative [facility] Resp Syncy Virus RNA Qual PCR NEGATIVE Negative [facility] SARS COV2 PCR NEGATIVE Negative [facility] Comment:All test results mus t be [...] use by authorized laboratories.Testing performed on the [employer] GeneXpert utilizingreal-time RT-PCR.All SARS CoV2 and positive influenza A/B results arereported to [facility]. 05/17/2025 12:3 9 PM EST 05/17/2025 12:47 PM EST Generic External Data Provider LAB MICROBIOLOGY - GENERAL ORDERABLES Final Result Performing Organization Address [facility]/ZIP Co de Phone Number [facility] [address] [place] [phone] * (ABNORMAL) Glucose, Whole Blood (05/17/2025 12:27 PM EST) Only the most recent of4 resultswithin the time period is included. Glucose, Whole Blood 436(HH) 60 - 115 mg/dL [facility] Comment:METER #: [id number] 05/17/2025 12:2 7 PM EST 05/17/2025 12:32 PM EST Generic External Data Provider LAB BLOOD ORDERAB LES Final Result Performing Organization Address [facility] Co de Phone Number [facility] [address] [place] [phone] * CT Head w/o Contrast (05/13/2025 1:43 PM EST) Anatomical Region Laterality Modality Head, Neck Computed Tomogra phy 05/13/2025 1:43 PM EST Narrative 05/13/2025 2:03 PM EST [address] [place] [address] CT Scan Report Signed Patient: Radha Rios MR#: [id number] : 1975 Acct:[id number] Age/Sex: 50 / F ADM Date: 05/13/25 Loc: HO.ED Attending Dr: Ordering Physician: Roxie Molina DO Date of Service: 05/13/25 Procedure(s): CT head/brain wo IV con Accession Number(s): [id number] cc: Roxie Molina DO; Estefania Hurley MD Report Number: [id number]: Total DLP = 680.00 mGy-cm Reason for [...] by: Demar Gray MD 05/13/2025 02:00 PM [facility] Dictated By: Demar Gray MD Signed By: <Electronically signed by Demar Gray MD in OV> 05/13/25 1400 DD/ 1343 TD/TT: 05/13/25 1352 Frame Opener: Procedure Note Donotuseinterpreter, Image - 05/13/[address] [address] [address] Scan Report Signed Patient: Sherrill Rios#: [id number] : 1975Acct:[id number] Age/Sex: 50 / FADM Date: 05/13/25 Loc: HO.ED Attending Dr: Ordering Physician: Roxie Molina DO Date of Service: 05/13/25 Procedure(s): CT head/brain wo IV con Accession Number(s): [id number] cc: Roxie Molina DO; Estefania Hurley MD Report Number: [id number]: Total DLP = 680.00 mGy-cm Reason for [...] by: Demar Gray MD 05/13/2025 02:00 PM [facility] Dictated By: Demar Gray MD Signed By: <Electronically signed by Demar Gray MD in OV> 05/13/25 1400 DD/ 1343 TD/TT: 05/13/25 1352 Frame Opener: [facility] External Provider IMG CT PROCEDURES Edited Result - Final * XR Chest 2 Views (05/13/2025 1:05 PM EST) Anatomical Region Laterality Modality Chest Radiographic Marcela ging 05/13/2025 1:05 PM EST Narrative 05/13/2025 1:18 PM EST [address] [address] XRay Report Signed Patient: Radha Rios MR#: [id number] : 1975 Acct:[id number] Age/Sex: 50 / F ADM Date: 05/13/25 Loc: HO.ED Attending Dr: Ordering Physician: Sarai Vu Date of Service: 05/13/25 Procedure(s): XR chest 2V Accession Number(s): [id number] cc: Sarai Vu; Estefania Hurley MD Reason [...] 05/13/25 1315 DD/ 1305 TD/TT: 05/13/25 1310 Frame Opener: Procedure Note Donotuseinterpreter, Image - 05/13/[address] [address] XRay Report Signed Patient: Marika RiosR#: [id number] : 1975Acct:[id number] Age/Sex: 50 / FADM Date: 05/13/25 Loc: HO.ED Attending Dr: Ordering Physician: Sarai Vu Date of Service: 05/13/25 Procedure(s): XR chest 2V Accession Number(s): [id number] cc: Sarai Vu; Estefania Hurley MD Reason [...] 05/13/25 1315 DD/ 1305 TD/TT: 05/13/25 1310 Frame Opener: [facility] External Provider IMG XR PROCEDURES Edited Result - Final * Influenza A B2 ID NOW (Fuller) (05/13/2025 1:00 PM EST) IDNOW SERIAL# [id number] [facility] Influenza A Negative Negative [facility] Influenza B2 Negative Negative [facility] Influenza A B2 Note See Note [facility] Comment:The Fuller ID NOW In [...] LAB MICROBIOLOGY - GENERAL ORDERABLES Final Result [facility] [address] [place] [address] [phone] * COVID-19 ID NOW (FULLER) (05/13/2025 1:00 PM EST) Pathologist [facility] IDNOW SERIAL# [id number] [facility] COVID-19 TEST Negative Negative [facility] COVID-19 NOTE See Note [facility] Comment: Results are for the identification of SARS-CoV2 RNA. TheSARS-CoV2 RNA is generally detectable in respiratory samplesduring the acute phase of infection. Positive results areindicative of the presence of SARS-CoV-2 RNA; clinicalcorrelation with patient history and other diagnosticinformation is necessary to determine patient infectionstatus. Positive results do not rule out bacterial infectionor co- infection with other viruses.Testing facilities within the [facility] and [facility] are required to report all positive results [...] EST us Generic External Data Provider LAB MOLECULAR SKYLER GNOSTICS ORDERABLES Final Result [facility] [address] [place] [address] [phone] * (ABNORMAL) Comprehensive Metabolic Panel (05/13/2025 1:00 PM EST) Pathologist [facility] Sodium 137 135 - 145 mmol/L [facility] Potassium 3.6 3.3 - 5.1 mmol/L [facility] Chloride 100 96 - 108 mmol/L [facility] Carbon Dioxide 27 22 - 29 mmol/L [facility] Anion Gap 14 12 - 20 [facility] Urea Nitrogen (BUN) 16 9 - 16 mg/dL [facility] Creatinine, Serum 1.20 0.5 - 1.4 mg/dL [facility] Creatinine Clr Calc Pharmacy 62.0 [facility] Comment:Provided height and weight: 160.02 cm,94.5 kg.eGFR (calculated from the MDRD study equation) and eCrCl(calculated from the Cockcroft-Gault equation) are based ondifferent parameters and may not yield comparable results.If eCrCl result is absurd, please check patient'sheight/weight. Estimated Glomerular Filt Rate 48 [facility] Comment:Chronic Kidney Disea se: Estimated GFR < 60 mL/min/1.74q3Djfbls Kidney Disease: Estimated GFR < 15 mL/min/1.73m2 Glucose 516(HH) 60 - 115 mg/dL [facility] Comment:Critical value for t est(s): GLUR Results called to and readback by: OMEGA Person calling: PAT Date: 05/13/25Time: 1340 Calcium 9.4 8.4 - 10.2 mg/dL [facility] Bilirubin, Total 0.4 0.0 - 1.0 mg/dL [facility] Aspartate Amino Transferase 26 5 - 31 U/L [facility] Alanine Aminotransferase 33(H) 0 - 31 U/L [facility] Total Protein 8.1(H) 6.5 - 8.0 g/dL [facility] Albumin Level 4.8 3.5 - 5.0 g/dL [facility] Alkaline Phosphatase 144(H) 39 - 117 U/L [facility] 05/13/2025 1:00 PM EST 05/13/2025 1:07 PM EST us Generic External Data Provider LAB BLOOD ORDERAB LES Final Result [facility] [address] [place] [phone] * ECG 12 lead (05/13/2025 12:53 [...] Urine (Urine, Random) 05/13/2025 12:20 PM EST Result [facility] Velia Gordon MD POINT OF CARE TEST ENTER /EDIT ORDERABLES Final Result * (ABNORMAL) POCT Hgb A1c (05/13/2025 12:18 PM EST) Hemoglobin A1C 13.0(A) 4.0 - 5.7 % QC Media Lot # [id number] Lot# Expiration Date Blood 05/13/2025 12:1 8 PM EST Result [facility] Velia Gordon MD POINT OF CARE TEST ENTER /EDIT ORDERABLES Final Result * (ABNORMAL) Bacterial Vaginosis (05/13/2025 12:00 PM EST) TRICHOMONAS VAGINALIS DETECTION BY PCR NOT DETECTED Not Detect [facility] BACTERIAL VAGINOSIS DETECTION BY PCR NEGATIVE Negative [facility] Comment:The BV organism targ ets [...] GROUP DETECTION BY PCR DETECTED(A) Not Detect [facility] Shona glab krusei PCR NOT DETECTED Not Detect [facility] 05/13/2025 12:0 0 PM EST 05/13/2025 6:41 PM EST us Estefania Hurley MD LAB MICROBIOLOGY - GENERAL OR DERABLES Final Result [facility] [address] [place] [phone] * Cologuard?? colon cancer screening (09/19/2023 1:00 PM EDT) Cologuard Result Negative Negative 09/23/19 24 4:12 AM EDT [employer] (CLIA #:[id number]) Comment: NEGATIVE TEST RESULT. A negative Cologuard [...] (Samanta Mitchell al, N Engl J Med 2014;370(14):3393-0268) The normal value (reference range) for this assay is negative. COLOGUARD RE-SCREENING RECOMMENDATION: Periodic colorectal cancer screening is an important part of preventive healthcare for asymptomatic individuals at average risk for colorectal cancer. Following a negative Cologuard result, the [employer] Society and U.S. Multi-Society Task Force screening guidelines recommend a Cologuard re-screening interval of 3 years. References: [employer] Guideline for Colorectal Cancer Screening: https://www.cancer.org/cancer/ajxzb-rnxscd-mrtsha/rkivflayn-ftzlnroei-cwjglnh/ac s-rec ommendations.html.; Allan DK, Miguel CR, Delia WinstonK, Colorectal Cancer Screening: Recommendations for Physicians and Patients from the U.S. Multi-Society Task Force on Colorectal Cancer Screening , Am J Gastroenterology 2017; 112:3482-1901. TEST DESCRIPTION: Composite algorithmic analysis of stool [...] (Samanta Mitchell al, N Engl J Med 2014;370(14):3160-6629.) Cologuard may produce a false negative or false positive result (no colorectal cancer or precancerous polyp present at colonoscopy follow up). A negative Cologuard test result does not guarantee the absence of CRC or advanced adenoma (pre-cancer). The current Cologuard screening interval is every 3 years. ([employer] Society and U.S. Multi-Society Task Force). Cologuard performance data in a 10,000 patient pivotal study using colonoscopy as the reference method can be accessed at the following location: www.Definicare.Greenphire/results. Additional description of the Cologuard test process, warnings and precautions can be found at www.Expertrd.com. Stool specimen (specimen) Rectal contents / Unknown 09/19/2023 1:00 PM EDT 09/20/2023 1:50 PM EDT Estefania Hurley MD LAB MOLECULAR DIAGNOSTICS ORD ERABLES Final Result [employer] (CLIA #:[id number]) [place] [address], * BI Mammogram Screening Tomosynthesis Bilateral (09/13/2023 3:10 PM EST) Anatomical Region Laterality Modality Breast Bilateral Mammography 09/13/2023 3:10 PM EST Narrative 09/28/2023 9:47 AM EDT [facility] [address] [place] [address] Mammography Report Signed Patient: Radha Rios MR#: [id number] : 1975 Acct:[id number] Age/Sex: 48 / F ADM Date: 09/13/23 Loc: HO.MAMMO Attending Dr: Estefania Hurley MD Ordering Physician: Estefania Hurley MD Results: 1Nega tive Date of Service: 09/13/23 Follow Up: 1 Year From Orig inal Mammogram Procedure(s): MM tomosynthesis screening BI Accession Number(s): [id number] cc: Estefania Hurley MD EXAMINATION: MM SCREENING [...] in OV> 09/28/23 0943 DD/ 1510 TD/TT: Frame Opener: Procedure Note Donotuseinterpreter, Image - 09/28/2023 [facility] [address] [place] [address] Mammography Report Signed Patient: Sherrill Rios#: [id number] : 1975Acct:[id number] Age/Sex: 48 / FADM Date: 09/13/23 Loc: HO.MAMMO Attending Dr: Estefania Hurley MD Ordering Physician: Estefania Hurley MDResults: 1Nega tive Date of Service: 09/13/23Follow Up: 1 Year From Orig inal Mammogram Procedure(s): MM tomosynthesis screening BI Accession Number(s): [id number] cc: Estefania Hurley MD EXAMINATION: MM SCREENING [...] in OV> 09/28/23 0943 DD/ 1510 TD/TT: Frame Opener: us Estefania Hurley MD IMG BI PROCEDURES Final Resul t * HPV mRNA E6/E7 w/Reflex to HPV Genotypes 16, 18/45 (09/09/2023 8:30 AM EST) HPV nRNA E6/E7 Not Detected Not Detected [facility] Comment:Methodology: Transcr iption-Mediated AmplificationThis assay detects E6/E7 viral messenger RNA (mRNA) from 14high-risk HPV types (16,18,31,33,35,39,45,51,52,56,58,59,66,68).Cervical sources are required for HPV testing.If a vaginal source from a patient who has had atotal hysterectomy with removal of cervix wassubmitted, please contact the testing laboratoryfor alternative testing options.For additional information, please refer tohttp://education.Babelverse/faq/YGS949p4(This link if provided for information/educational purposes only.)THIS TEST WAS PERFORMED AT:[facility] [place] [phone] WARREN MD HPV mRNA E6/E7 [facility] HPV 16 RNA [facility] HPV 18/45 RNA [facility] 09/09/2023 8:30 AM EST 09/13/2023 7:30 AM EST us Estefania Hurley MD LAB CYTOLOGY ORDERABLES Final Result [facility] [address] [place] [address] [phone] * Pap Smear (09/09/2023 8:30 AM EST) Swab Cervix uteri structure / Unknown 09/09/2023 8:30 AM EST 09/13/2023 7:30 AM EST Narrative [facility] - 09/21/2023 5:48 PM EDT ----- ------- Name: Radha Rios Age/Sex: 48/F : 1975 Unit#: [id number] Attend Dr: Estefania Hurley MD Re09/09/23 Status: [facility] Disch: ----- ------- SPEC : [id number] RECD: 09/13/23 STATUS: ALEKSANDER BABIN NUM: [id number] LISSETH: 09/09/[address] [facility] DR: Estefania Hurley MD ENTERED: 09/13/23 SP [...] 59, 66, 68) HPV testing performed by [employer], [place], [place]. See reference laboratory portion of the EMR for entire report. Clinical Information LMP: IUD Previous PAP test: Unknown date/findings Material Received ThinPrep-Cervical ----- ------- Signed (signature on file) Angeilca Tunnelton 09/21/23 1748 ----- ------- END OF REPORT Estefania Hurley MD LAB CYTOLOGY ORDERABLES Final Result [facility] [address] [place] [phone] * Hepatitis C Antibody with Reflex to HCV, RNA, Quantitative, Real-Time PCR (09/06/2023 8:09 AM EST) Hepatitis C Antibody Nonreactive Nonreactive [facility] Comment:Antibodies to HCV no t detected; does not exclude early acuteHCV infection. Blood Venous blood specimen / Unknown 09/06/2023 8:09 AM EST 09/06/2023 2:12 PM EST us Estefania Hurley MD LAB BLOOD ORDERABLES Final Re sult Performing Organization Address City/[facility]/ZIP Co de Phone Number [facility] [address] [place] [phone] * HIV-1/2 Antigen and Antibodies, Fourth Generation, with Reflexes (09/06/2023 8:09 AM EST) HIV AB/AG Nonreactive Nonreactive [facility] Comment:HIV-1 p24 Ag and/or HIV-1/HIV-2 Ab not detected.A test result that is nonreactive does not exclude thepossibility of exposure to or infection with HIV-1 and/orHIV-2. Nonreactive results in this assay for individualswith prior exposure to HIV-1 and/or HIV-2 may be due toantigen and antibody levels that are below the limit ofdetection of this assay.The [employer] HIV Ag/Ab Combo assay result andsupplemental assay results should be interpreted inconjunction with the patient's clinical presentation,history and other laboratory results. If the results areinconsistent with clinical evidence, additional testing issuggested to confirm the result. Blood Venous blood specimen / Unknown 09/06/2023 8:09 AM EST 09/06/2023 2:12 PM EST us Estefania Hurley MD LAB BLOOD ORDERABLES Final Re sult Performing Organization Address City/[facility]/ZIP Co de Phone Number [facility] [address] [place] [phone] * Lipid Panel, Standard (09/06/2023 8:09 AM EST) Triglycerides 140 <150 mg/dL [facility] Comment:Desirable Triglyceri de: less than 150 mg/dLBorderline High Triglyceride 150-199 mg/dLHigh Triglyceride: 200-499 mg/dLVery High Triglyceride: greater than or equal to 5OO mg/dL Cholesterol 174 <200 mg/dL [facility] Comment:Desirable Cholestero l: less than 200 mg/dLBorderline High Cholesterol: 200-239 mg/dLHigh Cholesterol: greater than 239 mg/dL LDL Cholesterol Calculated 91 <100 mg/dL [facility] Comment:Desirable LDL: less than 100 mg/dLNear Optimal/Above Optimal LDL: 110- 129 mg/dLBorderline High LDL: 130-159 mg/dLHigh LDL: 160-189 mg/dLVery High LDL: greater than or equal to 190 mg/dL HDL Cholesterol 55 >40 mg/dL [facility] Comment:Desirable HDL: great er than 40 mg/dL Note: This HDL assay may give artificially low results in patients with liver disease. Blood Venous blood specimen / Unknown 09/06/2023 8:09 AM EST 09/06/2023 2:12 PM EST us Estefania Hurley MD LAB BLOOD ORDERABLES Final Re sult [facility] [address] [place] [address] [phone] from Last 3 Months or Most Recently Relevant to Health Maintenance Insurance [facility] Care Teams Flight Superintendent Relationship Specialty Start Date End Date Estefania Hurley MD [address] [place] [phone] PCP - General Family Medicine 08/04/23
--- OUTSIDE RECORDS SUMMARY | 2025-05-17 15:12 | XMS_ITS | Encounter Summary ---
Author Organization [employer] Address [address] [facility] 7 [place] [address] Care Team Providers Care Oil Field Pumper Name Role Phone Estefania Hurley MD Primary Care Provider [phone] Reason for Visit * Reason Onset Date Comments ER Follow-up 05/15/2025 Encounter Details Date Type Department Care Team ([facility] Contact Info) Description 05/15/2025 Telephone [facility] MEDICINE [address] [place] [address] Estefania Hurley MD [address] [place] [address] ER Follow-up Social History Tobacco Use Types Packs/Day Years [...] encounter Miscellaneous Notes * Telephone Encounter - Lydia Wisdom RN - 05/15/2025 2:49 PM EST T/C to pt re: r/s appointment fro tomorrow. Pt states that she is only able to go to [facility] on Tuesday and is at this time only willing to see Dr. Hurley. RN reviews ED precautions and informs pt that she can call on-call providers at any time if she has additional questions or concerns. Pt states thatreae is feeling well and has no further questions at this time and agrees to plan of care. * Telephone Encounter - Sidra Carlos - 05/15/2025 9:49 AM EST Patient calling to report ED visit on : Date: 05/13 Hospital: [facility] Seen for: feel weak Symptomatic No *if yes message should go to Triage Patient advised will forward to team nurse for follow up documented in this encounter Plan of Treatment Upcoming Encounters Date Type Department Care Team (Late st Contact Info) Description 05/20/2025 1:40 PM EST Office Visit [facility] MED & PEDS [address] [place] [address] 05/27/2025 3:45 PM EST Office Visit [facility] MED & PEDS [address] [place] [address] Estefania Hurley MD [address] [place] [address] 06/13/2025 2:00 PM EST Office Visit [facility] PEDS [address] [place] [address] Estefania Hurley MD [address] [place] [address] documented as of this encounter Visit Diagnoses Not on filedocumented in this encounter Care Teams Oil Field Pumper Relationship Specialty Start Date End Date Estefania Hurley MD [address] [place] [phone] PCP - General Family Medicine 08/04/23 documented as of this encounter
--- OUTSIDE RECORDS SUMMARY | 2025-05-17 15:12 | XMS_ITS | Encounter Summary ---
Author Organization [employer] Address [address] [facility] 7t [place] [address] Care Team Providers Care Lumber Sorter Name Role Phone Estefania Hurley MD Primary Care Provider [phone] Encounter Details Date Type Department Care Team (Latest Contact Info) Description 05/15/2025 Travel Social History Tobacco Use Types Packs/Day [...] 1:40 PM EST Office Visit [facility] MED & PEDS [address] [place] [address] 05/27/2025 3:45 PM EST Office Visit [facility] MED & PEDS [address] [place] [address] Estefania Hurley MD [address] [place] [address] 06/13/2025 2:00 PM EST Office Visit [facility] MED & PEDS [address] [place] [address] Estefania Hurley MD [address] [place] [address] documented as of this encounter Visit Diagnoses Not on filedocumented in this encounter Care Teams Lumber Sorter Relationship Specialty Start Date End Date Estefania Hurley MD [address] [place] [phone] PCP - General Family Medicine 08/04/23 documented as of this encounter
--- OUTSIDE RECORDS SUMMARY | 2025-05-17 15:12 | XMS_ITS | Encounter Summary ---
Author Organization [employer] Address [address] [facility] 7t [place] [address] Care Team Providers Care Tube Operator Name Role Phone Estefania Hurley MD Primary Care Provider [phone] Encounter Details Date Type Department Care Team (Latest Contact Info) Description 05/16/2025 Travel Social History Tobacco Use Types Packs/Day [...] 1:40 PM EST Office Visit [facility] MED & PEDS [address] [place] [address] 05/27/2025 3:45 PM EST Office Visit [facility] MED & PEDS [address] [place] [address] Estefania Hurley MD [address] [place] [address] 06/13/2025 2:00 PM EST Office Visit [facility] MED & PEDS [address] [place] [address] Estefania Hurley MD [address] [place] [address] documented as of this encounter Visit Diagnoses Not on filedocumented in this encounter Care Teams Tube Operator Relationship Specialty Start Date End Date Estefania Hurley MD [address] [place] [phone] PCP - General Family Medicine 08/04/23 documented as of this encounter
--- OUTSIDE RECORDS SUMMARY | 2025-05-17 15:12 | XMS_ITS | Encounter Summary ---
Author Organization [employer] Address [address] [facility] 7 [place] [address] Care Team Providers Care Aircraft Assembler Name Role Phone Estefania Hurley MD Primary Care Provider [phone] Reason for Visit * Reason Onset Date Comments Nurse Triage 05/17/2025 Encounter Details Date Type Department Care Team ([facility] st Contact Info) Description 05/17/[address] [facility] MEDICINE [address] [place] [address] Estefania Hurley MD [address] [place] [address] Nurse Triage Social History Tobacco Use Types Packs/Day Years [...] encounter Miscellaneous Notes * Telephone Encounter - Sara Patel RN - 05/17/2025 9:00 AM EST Tc to patient. She stated her blood sugar was 424 this morning. Stated she took 10 unit of prescribed Lantus (prescribed at ER) last night and her metformin yesterday. States she is felling some weakness and having some stomach discomfort. Appointment schedule today in office at 11:30 to review blood sugars and insulin. Protocol Used: Diabetes - High Blood Sugar (Adult) Protocol-Based Disposition: Discuss with PCP and Callback by Nurse within 1 Hour Video visit offer not recorded Positive Triage Questions: * Blood glucose > 400 mg/dL (22.2 mmol/L) * Patient wants to be seen * Blood glucose > 300 mg/dL (16.7 mmol/L) * All higher-acuity triage questions were negative * Telephone Encounter - Maeve Amezcua - 05/17/2025 8:36 AM EST Patient calling to report ED visit on : Date: 05/13 Hospital: [facility] Seen for: High blood sugar Symptomatic Yes *if yes message should go to Triage Pt has number at 7am was [phone] Patient advised will forward to team nurse for follow up documented in this encounter Plan of Treatment Upcoming Encounters Date Type Department Care Team ([facility] st Contact Info) Description 05/20/2025 1:40 PM EST Office Visit [facility] MED & PEDS [address] [place] [address] 05/27/2025 3:45 PM EST Office Visit [facility] [address] [place] [address] Estefania Hurley MD [address] [place] [address] 06/13/2025 2:00 PM EST Office Visit [facility] PEDS [address] [place] [address] Estefania Hurley MD [address] [place] [address] documented as of this encounter Visit Diagnoses Not on filedocumented in this encounter Care Teams Aircraft Assembler Relationship Specialty Start Date End Date Estefania Hurley MD [address] [place] [phone] PCP - General Family Medicine 08/04/23 documented as of this encounter
--- OUTSIDE RECORDS SUMMARY | 2025-05-17 15:12 | XMS_ITS | Encounter Summary ---
Author Organization [employer] Address [address] [facility] 7 [place] [address] Care Team Providers Care Picker Name Role Phone Estefania Hurley MD Primary Care Provider [phone] Reason for Visit * Reason Onset Date Comments Appointment Request 05/15/2025 Encounter Details Date Type Department Care Team ([facility] Contact Info) Description 05/15/2025 Telephone [facility] MED & PEDS [address] [place] [address] Estefania Hurley MD [address] [place] [address] Appointment Request Social History Tobacco Use Types Packs/Day Years [...] Telephone Encounter - Sara Patel RN - 05/15/2025 2:44 PM EST Appointment already rescheduled for 05/27/25 at 3:45. * Telephone Encounter - Adalid Rod - 05/15/2025 1:02 PM EST Tc from pt requesting to reschedule sick onsite apt that was scheduled for tomorrow Contact pt at [phone] documented in this encounter Plan of Treatment Upcoming Encounters Date Type Department Care Team ([facility] st Contact Info) Description 05/20/2025 1:40 PM EST Office Visit [facility] MED & PEDS [address] [place] [address] 05/27/2025 3:45 PM EST Office Visit [facility] MED & PEDS [address] [place] [address] Estefania Hurley MD [address] [place] [address] 06/13/2025 2:00 PM EST Office Visit [facility] MED & PEDS [address] [place] [address] Estefania Hurley MD [address] [place] [address] documented as of this encounter Visit Diagnoses Not on filedocumented in this encounter Care Teams Picker Relationship Specialty Start Date End Date Estefania Hurley MD [address] [place] [address] PCP - General Family Medicine 08/04/23 documented as of this encounter
--- OUTSIDE RECORDS SUMMARY | 2025-05-17 15:12 | XMS_ITS | Encounter Summary ---
Author Organization [employer] Address [address] [place] [address] 7 [place] [address] Care Team Providers Care Shackler Name Role Phone Estefania Hurley MD Primary Care Provider [phone] Reason for Visit * Reason Onset Date Comments New Patient 04/21/2023 Encounter Details Date Type Department Care Team (Late st Contact Info) Description 04/21/2023 Telephone [facility] MEDICINE [address] [place] [address] Maurice Joaquin MD [address] [place] [address] New Patient Social History Tobacco Use Types [...] been transfer over to wait list for EYE CARE PROFESSIONAL. EFFECTIVE SINCE 04/21/2023 documented in this encounter Plan of Treatment Upcoming Encounters Date Type Department Care Team (Late st Contact Info) Description 05/20/2025 1:40 PM EST Office Visit [facility] [address] [place] [address] 05/27/2025 3:45 PM EST Office Visit [facility] MED & PEDS [address] [place] [address] Estefania Hurley MD [address] [place] [address] 06/13/2025 2:00 PM EST Office Visit [facility] MED & PEDS [address] [place] [address] Estefania Hurley MD [address] [place] [address] documented as of this encounter Visit Diagnoses Not on filedocumented in this encounter Care Teams Shackler Relationship Specialty Start Date End Date Estefania Hurley MD [address] [place] [address] PCP - General Family Medicine 08/04/23 documented as of this encounter
--- OUTSIDE RECORDS SUMMARY | 2025-05-17 15:12 | XMS_ITS | Encounter Summary ---
Author Organization [employer] Address [address] [facility] 7t [place] [address] Care Team Providers Care Shotweld Operator Name Role Phone Estefania Hurley MD Primary Care Provider [phone] Encounter Details Date Type Department Care Team ([facility] st Contact Info) Description 05/14/2025 Results Follow-Up [facility] MED & PEDS [address] [place], [place] [phone] Estefania Hurley MD [address] [place] [address] CBC auto differential, VENOUS BLOOD GAS, Glucose, Whole Blood, Additional followed-up results: 17 Social History Tobacco Use Types Packs/Day Years [...] encounter Miscellaneous Notes * Telephone Encounter - Tamy Crandall RN - 05/14/2025 10:37 AM EST TC to pt and informed about results and pharmacy medication sent to . Pt verbalized understanding and agreement with plan. * Telephone Encounter - Tamy Crandall RN - 05/14/2025 10:37 AM EST ----- Message from Estefania Hurley MD sent at 05/14/2025 9:30 AM EST ----- [facility] Team! Can you please call Radha Avalos and inform about results? Patient with ted, order by other provider. Send diflucan. Thanks! Estefania ----- Message ----- From: Interface, Lab Results In Sent: 05/13/2025 1:14 PM EST To: Estefania Hurley MD documented in this encounter Plan of Treatment Upcoming Encounters Date Type Department Care Team (Late st Contact Info) Description 05/20/2025 1:40 PM EST Office Visit [facility] MED & PEDS [address] [place] [address] 05/27/2025 3:45 PM EST Office Visit [facility] MED & PEDS [address] [place] [address] Estefania Hurley MD [address] [place] [address] 06/13/2025 2:00 PM EST Office Visit [facility] MED & PEDS [address] [place], [place] [phone] Estefania Hurley MD [address] [place] [address] documented as of this encounter Visit Diagnoses Not on filedocumented in this encounter Care Teams Shotweld Operator Relationship Specialty Start Date End Date Estefania Hurley MD [address] [place] [address] PCP - General Family Medicine 08/04/23 documented as of this encounter
[2025-05-17 15:23] LABS: Glucose, Whole Blood 251 mg/dL (60-115)
[2025-05-17 15:42] VITALS: BP 132/88; PULSE 78; RESP 16; O2SAT 96
[2025-05-17 16:17] VITALS: BP 132/88; PULSE 78; RESP 16; TEMP 36.1; O2SAT 96
== END 2025-05-17 16:28 | disposition home or self-care (01) ==
PROVIDERS: Physician Assistant Medical; Emergency Provider Emergency Medicine Emergency Medical Services; PCP Family Medicine
DX: E11.65 Type 2 diabetes mellitus with hyperglycemia (principal); R35.0 Frequency of micturition; R07.89 Other chest pain; R11.0 Nausea; Z79.4 Long term (current) use of insulin; Z79.899 Other long term (current) drug therapy; Z03.818 Encounter for observation for suspected exposure to other biological agents ruled out
CPT/HCPCS: 71045; 80048; 80076; 81001; 82010; 82803; 82947; 83735; 84484; 85025; 87637; 93005; 96360; 99284; 99285

== ENCOUNTER → 2025-05-17 12:24 | Outpatient (BNV) | payer OTHER, SELFPAY | PROVIDERS: Emergency Provider Emergency Medicine Emergency Medical Services; PCP Family Medicine; Visit Provider Internal Medicine Cardiovascular Disease | DX: R94.31 Abnormal electrocardiogram [ECG] [EKG] (principal); R07.9 Chest pain, unspecified | CPT/HCPCS: 93010 ==

== ENCOUNTER → 2025-05-17 13:36 | Outpatient (BNV) | payer OTHER, SELFPAY | PROVIDERS: Emergency Provider Emergency Medicine Emergency Medical Services; PCP Family Medicine; Visit Provider Radiology Diagnostic Radiology | DX: R06.02 Shortness of breath (principal) | CPT/HCPCS: 71045 ==